=== PATIENT | female | born 1995 | race Caucasian/White ===

== ENCOUNTER 2020-02-24 18:50 | Emergency (ER) | payer OTHER, SELFPAY ==
--- NOTE | 2020-02-24 | ECG_ITS ---
Test Reason : CP Blood Pressure : / mmHG Vent. Rate : 085 BPM Atrial Rate : 085 BPM P-R Int : 172 ms QRS Dur : 080 ms QT Int : 344 ms P-R-T Axes : 041 043 021 degrees QTc Int : 409 ms Normal sinus rhythm Normal ECG No previous ECGs available Referred By: Generic ED Physician Electronically Signed By:KARIN JENKINS MD
[2020-02-24 18:59] VITALS: BP 127/71; PULSE 96; RESP 18; TEMP 36.4; O2SAT 100; BMI 27.8
--- NOTE | 2020-02-24 19:12 | ED_ITS ---
HPI - Chest Pain General Chief Complaint: Chest Pain Stated Complaint: chest pain Time Seen by Provider: 02/24/20 19:02 Source: patient Mode of arrival: ambulatory Limitations: no limitations History of Present Illness HPI narrative: Patient comes in complaining of chest pain on the left side. Patient states she was driving, started feeling anxious and then started having chest pain. Patient states is sharp, nonradiating. Patient feeling anxious. MD complaint: other (Chest pain due to anxiety) Related Data Home Medications Medication Instructions Recorded Confirmed omeprazole 20 mg capsule,delayed 20 mg PO DAILY 01/19/20 02/21/20 release cholecalciferol (vitamin D3) 50 50 mcg PO DAILY 02/21/20 02/21/20 mcg (2,000 unit) capsule clomiphene citrate 50 mg tablet 50 mg PO DAILY 02/21/20 02/21/20 folic acid 400 mcg tablet 0.4 mg PO DAILY 02/21/20 02/21/20 metronidazole 0.75 % vaginal gel 1 appful VAGINAL DAILY 02/21/20 02/21/20 progesterone micronized 100 mg 100 mg PO QAM 02/21/20 02/21/20 capsule progesterone micronized 100 mg 1 insert VAGINAL ONCE ea 02/21/20 02/21/20 vaginal insert Previous Rx's Medication Instructions Recorded mirtazapine 15 mg tablet 15 mg PO BEDTIME 90 Days #90 tab 01/19/20 clobetasol 0.05 % topical cream 1 applic TOPICAL BEDTIME 30 Days 02/21/20 #30 g Allergies Allergy/AdvReac Type Severity Reaction Status Date / Time No Known Allergies Allergy Verified 01/19/20 16:37 Review of Systems Review of Systems: Constitutional : No Weight loss, No Fever, No Chills, No Night Sweats, No Fatigue, No Malaise ENT/Mouth : No Hearing loss, No Ear Pain, No Nasal Congestion, No Sinus Pain, No Hoarseness, No sore throat, No Rhinorrhea, No Swallowing Difficulty Eyes: No Eye Pain, No Swelling, No Redness, No Foreign Body, No Discharge, No Vision Changes Cardiovascular : Complaining of mild chest pain on the left side, no reproducible, No Dyspnea on Exertion, No Orthopnea, No Edema, No Palpitations Respiratory : No Cough, No Sputum, No Wheezing, No Smoke Exposure, No Dyspnea Gastrointestinal : No Nausea, No Vomiting, No Diarrhea, No Constipation, No abdominal Pain, No Hematochezia, No Melena Genitourinary : no irregular bleeding, No Dysuria, No Urinary Frequency, No Hematuria, No Urinary Incontinence, No Urgency, No Flank Pain, No Urinary Flow Changes, No Hesitancy Musculoskeletal : No joint pain, No Myalgias, No Joint Swelling Skin : No Skin Lesions, No rash Neuro : No Weakness, No Numbness, No Paresthesias, No Loss of Consciousness, No Dizziness, No Headache Psych : Complaining of anxiety, No Depression, No SI/HI/AH/VH, No Social Issues, Heme/Lymph: No Bruising, No Bleeding,No Lymphadenopathy Endocrine : No Polyuria, No Polydipsia, No Temperature Intolerance [facility] Past Medical History Medical History Anxiety Depression Difficulty sleeping Dyspepsia Psoriasis Surgical History No pertinent past surgical history Family History Family History Father Bipolar disorder Back problem Mother Asthma Heart problem Maternal Grandfather CVD (cardiovascular disease) Myocardial infarction Paternal Aunt Breast cancer Brother No problems noted. Sister No problems noted. Maternal Aunt Uterine cancer Ovarian cancer Social History Social History Alcohol intake: never Smoking Status: Current some day smoker Tobacco Type: Cigarette Substance Use Type: Marijuana Substance Use Frequency: Daily Last Used Substance: Hours (ago) Any prior treatment program specific to substance use: No Advance Directives: No Advance Directives Information Provided: Yes Physical Exam Vital Signs: Vital Signs: Last Vital Signs Temp 97.6 F 02/24/20 18:59 Pulse 96 02/24/20 18:59 Resp 18 02/24/20 18:59 BP 127/71 02/24/20 18:59 Pulse Ox 100 02/24/20 18:59 Body Mass Index 27.8 Appearance: Alert. Oriented X3. No acute distress. Patient seems anxious Eyes: Pupils equal, round and reactive to light. ENT: Pharynx normal. Neck: Normal inspection. Neck supple. No lymph nodes noted. No crepitus CVS: Normal heart rate and rhythm. Pulses normal. Normal S1 and S2 Respiratory: No respiratory distress. Breath sounds normal. No Wheezing. No rales Abdomen: Soft and nontender. No rigidity. No distention. good BS x4 Skin: Skin warm and dry. Normal skin color. Normal skin turgor. Extremities: No lower extremity edema. No lower extremity edema. No Lacerations. No Rash Neuro: Oriented X 3. No motor deficit. No sensory deficit. Moving all extermities. No slurred speech. Course Course Course Narrative: Patient's white blood cell count is 15.1, unclear where the source of infection is. Patient declined staying for the urine and UA test, a chest x-ray is within normal limits. Troponin 1. Was 5.2, I discussed with the patient that she should be staying for a 2nd troponin. 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 MDM - Chest Pain Lab Data Result diagrams: 02/24/20 19:16 02/24/20 19:16 Labs: Lab Results 02/24/20 02/24/20 02/24/20 Range/Units 19:16 19:16 19:16 WBC 15.1 H (4.8-10.8) X10*3/uL RBC 4.86 (4.20-5.50) X10*6/uL Hgb 15.0 (12.0-16.0) g/dl Hct 43.9 (37-47) % MCV 90.3 (80-98) fL MCH 30.9 (27.0-33.0) pg MCHC 34.2 (31.0-35.0) g/dl RDW 12.3 (11.0-16.0) % Plt Count 215 (160-400) X10*3/uL MPV 11.8 (9.4-12.3) fL Immature Gran % (Auto) 0.3 (0.0-0.4) % Neut % (Auto) 57.5 (45-73) % Lymph % (Auto) 33.5 (20-40) % [place] % (Auto) 6.4 (2-11) % Eos % (Auto) 2.0 (0-4) % Baso % (Auto) 0.3 (0-2) % Lymph # (Auto) 5.0 H (1.2-4.9) X10*3/uL [place] # (Auto) 1.0 (0.1-1.2) X10*3/uL Eos # (Auto) 0.3 (0.0-0.4) X10*3/uL Baso # (Auto) 0.0 (0.0-0.2) X10*3/uL Abs Immat Gran (auto) 0.04 H (0.00-0.03) X10*3/uL Absolute Neuts (auto) 8.7 H (2.0-8.3) X10*3/uL Absolute Nucleated RBC 0.000 (0.0-0.012) X10*3/uL Nucleated RBC % (auto) 0.0 (0.0-0.2) /100WBC Smear Tech's Comments VERIFIED Sodium 140 (135-145) mmol/L Potassium 3.7 (3.3-5.1) mmol/l Chloride 105 (96-108) mmol/L Carbon Dioxide 26 (22-29) mmol/L Anion Gap 13 (12-20) BUN 17 H (9-16) mg/dL Creatinine 0.83 (0.5-1.4) mg/dL Estim Creat Clear Calc 98.9 Estimated GFR > 60 Random Glucose 64 (60-115) mg/dL Calcium 9.7 (8.4-10.2) mg/dL Troponin I High Sens 5.2 (<3.5-17.0) ng/L ECG Data ECG #1: Attestation: I personally reviewed and interpreted this ECG as follows: (Sinus rhythm, heart rate 85, no ST segment depressions or elevations, nonspecific T-wave inversions in lead III) Discharge Plan Discharge Clinical Impression: Chest pain Qualifiers: Chest pain type: unspecified Qualified Code(s): R07.9 - Chest pain, unspecified Patient Disposition: Left Against Medical Advice Instructions: Chest Pain (ED) Additional Instructions: Please follow-up with your primary care physician tomorrow. If you have any worsening or new symptoms, please return to the emergency room or call 911 Prescriptions: No Action clobetasol 0.05 % cream 1 applic topical BEDTIME 30 Days Qty: 30 RF: 3 clomiphene citrate 50 mg tablet 50 mg PO DAILY RF: 0 cholecalciferol (vitamin D3) 50 mcg (2,000 unit) capsule 50 mcg PO DAILY RF: 0 folic acid 400 mcg tablet 0.4 mg PO DAILY RF: 0 progesterone micronized 100 mg insert 1 insert vaginal ONCE RF: 0 metronidazole [Metrogel Vaginal] 0.75 % gel 1 appful vaginal DAILY RF: 0 progesterone micronized [Prometrium] 100 mg capsule 100 mg PO QAM RF: 0 omeprazole 20 mg capsule,delayed release(DR/EC) 20 mg PO DAILY RF: 0 mirtazapine 15 mg tablet 15 mg PO BEDTIME 90 Days Qty: 90 RF: 0
--- NOTE | 2020-02-24 19:20 | XR_ITS ---
EXAMINATION: XR CHEST CLINICAL INFORMATION: Left-sided chest pain. COMPARISON: None TECHNIQUE: Frontal portable view of the chest was obtained. 7:32 PM FINDINGS: No significant abnormality is noted involving the heart, lungs, mediastinum, bony thorax or soft tissues. XR/XR chest 1V IMPRESSION: Unremarkable examination.
[2020-02-24 19:23] LABS: Basophils Percent Auto 0.3 % (0-2); Eosinophils Absolute Auto 0.3 X10*3/uL (0.0-0.4); Hematocrit 43.9 % (37-47); Imm Gran Abs Auto 0.04 X10*3/uL (0.00-0.03); Imm Gran Pct Auto 0.3 % (0.0-0.4); Lymphocytes Percent Auto 33.5 % (20-40); MANUAL DIFF FLAG SCAN; Mean Corpuscular HGB Conc 34.2 g/dl (31.0-35.0); Mean Corpuscular Hemoglobin 30.9 pg (27.0-33.0); Mean Corpuscular Volume 90.3 fL (80-98); Mean Platelet Volume 11.8 fL (9.4-12.3); Monocytes Percent Auto 6.4 % (2-11); Neutrophils Absolute Auto 8.7 X10*3/uL (2.0-8.3); Neutrophils Percent Auto 57.5 % (45-73); Platelet Count 215 X10*3/uL (160-400); Red Blood Count 4.86 X10*6/uL (4.20-5.50); Red Cell Distribution Width 12.3 % (11.0-16.0); SCAN SMEAR FLAG 1; White Blood Count 15.1 X10*3/uL (4.8-10.8)
[2020-02-24] MEDS: Aspirin Enteric Coated 325 MG TABLET.DR PO (19:24)
--- NOTE | 2020-02-24 19:25 | PC.NURSE ---
patient a&ox3, iv inserted, labs drawn, ekg performed, case monitor applied, nsr, medicated per order, will continue to monitor.
--- NOTE | 2020-02-24 19:25 | PC.NURSE ---
pt medicated with 325 asa however med would not scan, will call pharmacy as it was verified with another nurse.
[2020-02-24 19:42] LABS: SLIDE REVIEW VERIFIED
[2020-02-24 19:43] LABS: Anion Gap 13 (12-20); Blood Urea Nitrogen 17 mg/dL (9-16); Calcium 9.7 mg/dL (8.4-10.2); Carbon Dioxide 26 mmol/L (22-29); Chloride 105 mmol/L (96-108); Creatinine Clr Calc Pharmacy 98.9; Estimated Glomerular Filt Rate > 60; Glucose Random 64 mg/dL (60-115); Potassium 3.7 mmol/l (3.3-5.1); Sodium 140 mmol/L (135-145)
[2020-02-24 19:51] LABS: Troponin-I High Sensitivity 5.2 ng/L (<3.5-17.0)
--- NOTE | 2020-02-24 20:37 | PC.NURSE ---
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
--- NOTE | 2020-02-24 20:46 | PC.NURSE ---
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 will notify provider, charge nurse notified and pt will be eloped.
== END 2020-02-24 20:48 | disposition left against medical advice (07) ==
PROVIDERS: Emergency Provider Emergency Medicine; PCP Internal Medicine
DX: R07.9 Chest pain, unspecified (principal); Z79.899 Other long term (current) drug therapy; F17.200 Nicotine dependence, unspecified, uncomplicated; Z71.6 Tobacco abuse counseling
CPT/HCPCS: 36415; 71045; 80048; 84484; 85025; 93005; 99283; 99284

== ENCOUNTER 2020-04-25 14:47 | Outpatient (REF) | payer OTHER, SELFPAY ==
[2020-04-26 13:14] LABS: BV Int Neg Control Negative (Negative); BV Int Pos Control Positive (Positive)
[2020-04-28 10:45] LABS: CT PCR NOT DETECTED (Not Detect.); NG PCR NOT DETECTED (Not Detect.)
== END 2020-04-25 14:48 | disposition home or self-care (01) ==
LOC: HO.LNP 14:47
PROVIDERS: Visit Provider Nurse Practitioner Family
DX: N76.0 Acute vaginitis (principal); Z76.89 Persons encountering health services in other specified circumstances
CPT/HCPCS: 87255; 87480; 87491; 87510; 87591; 87660

== ENCOUNTER 2020-05-23 11:57 | Outpatient (REF) | payer OTHER, SELFPAY ==
[2020-05-23 17:43] LABS: Hematocrit 41.8 % (37-47); Hemoglobin 14.4 g/dl (12.0-16.0); Mean Corpuscular HGB Conc 34.4 g/dl (31.0-35.0); Mean Corpuscular Hemoglobin 30.8 pg (27.0-33.0); Mean Corpuscular Volume 89.5 fL (80-98); Mean Platelet Volume 12.4 fL (9.4-12.3); Platelet Count 232 X10*3/uL (160-400); Red Blood Count 4.67 X10*6/uL (4.20-5.50); Red Cell Distribution Width 11.9 % (11.0-16.0); White Blood Count 11.7 X10*3/uL (4.8-10.8)
[2020-05-23 18:23] LABS: TSH reflex Free T4 0.58 uIU/mL (0.32-4.0)
[2020-05-29 10:42] LABS: Testosterone, Free 8.9 pg/mL (0.1-6.4); Testosterone, Total 64 ng/dL (2-45)
== END 2020-05-23 11:58 | disposition home or self-care (01) ==
LOC: HO.LAB 11:57
PROVIDERS: PCP Internal Medicine; Visit Provider Advanced Practice Midwife
DX: N93.9 Abnormal uterine and vaginal bleeding, unspecified (principal); L68.0 Hirsutism
CPT/HCPCS: 36415; 83498; 84402; 84403; 84443; 85027; Q3014

== ENCOUNTER 2020-06-05 15:21 | Outpatient (REF) | payer OTHER, SELFPAY ==
--- NOTE | ~2020-06-05 | US_ITS ---
EXAMINATION: PELVIC ULTRASOUND CLINICAL INFORMATION: Abnormal uterine bleeding COMPARISON: None TECHNIQUE: Transabdominal and transvaginal pelvic ultrasound was performed. Transvaginal exam was performed for better visualization of the uterus and ovaries. FINDINGS: The uterus is anteverted and measures 8.7 x 4.4 x 5.9 cm in dimension. No focal uterine lesion is seen. Endometrial thickness is normal measuring 1.2 cm. Both ovaries are enlarged. The right ovary measures 5.1 x 2.7 x 3.4 cm, volume 24 mL. Left ovary measures 4 x 3.2 x 2.1 cm, volume 18 mL. There are numerable small peripheral cysts or follicles seen in both ovaries and increased central echogenic stroma. Findings are suggestive of polycystic ovarian syndrome. There is no fluid in the pelvis. US/US transvaginal IMPRESSION: Enlarged ovaries with multiple small peripheral cysts or follicles suggestive of polycystic ovarian syndrome.
--- NOTE | ~2020-06-05 | US_ITS ---
EXAMINATION: PELVIC ULTRASOUND CLINICAL INFORMATION: Abnormal uterine bleeding COMPARISON: None TECHNIQUE: Transabdominal and transvaginal pelvic ultrasound was performed. Transvaginal exam was performed for better visualization of the uterus and ovaries. FINDINGS: The uterus is anteverted and measures 8.7 x 4.4 x 5.9 cm in dimension. No focal uterine lesion is seen. Endometrial thickness is normal measuring 1.2 cm. Both ovaries are enlarged. The right ovary measures 5.1 x 2.7 x 3.4 cm, volume 24 mL. Left ovary measures 4 x 3.2 x 2.1 cm, volume 18 mL. There are numerable small peripheral cysts or follicles seen in both ovaries and increased central echogenic stroma. Findings are suggestive of polycystic ovarian syndrome. There is no fluid in the pelvis. US/US pelvic complete IMPRESSION: Enlarged ovaries with multiple small peripheral cysts or follicles suggestive of polycystic ovarian syndrome.
== END 2020-06-05 15:22 | disposition home or self-care (01) ==
LOC: HO.HMGCX 15:21
PROVIDERS: PCP Internal Medicine; Visit Provider Advanced Practice Midwife
DX: N93.9 Abnormal uterine and vaginal bleeding, unspecified (principal); L68.0 Hirsutism
CPT/HCPCS: 76830; 76856

== ENCOUNTER → 2020-06-07 15:18 | Outpatient (BNVA) | payer OTHER, SELFPAY | PROVIDERS: Visit Provider Advanced Practice Midwife | DX: Z13.89 Encounter for screening for other disorder (principal) | CPT/HCPCS: 99212 ==

== ENCOUNTER → 2020-08-26 11:00 | Outpatient (BNVA) | payer OTHER, SELFPAY | PROVIDERS: Visit Provider Advanced Practice Midwife | DX: E28.2 Polycystic ovarian syndrome (principal) | CPT/HCPCS: Q3014 ==

== ENCOUNTER → 2020-09-23 14:17 | Outpatient (BNVA) | payer OTHER, SELFPAY | PROVIDERS: PCP Internal Medicine; Visit Provider Advanced Practice Midwife | DX: Z30.011 Encounter for initial prescription of contraceptive pills (principal) | CPT/HCPCS: Q3014 ==

== ENCOUNTER 2020-11-23 09:24 | Outpatient (REF) | payer OTHER, MEDICAID, SELFPAY ==
[2020-11-25 03:37] LABS: HBS Num1 2.41 mIU/mL (0-7.99); ~Hepatitis B Surface Antibody NONREACTIVE (Nonreactive)
[2020-11-25 17:26] LABS: Rubella IgG Antibody 1.04 Index; Rubeola IgG (Measles) <13.50 AU/mL
== END 2020-11-23 09:25 | disposition home or self-care (01) ==
LOC: HO.HMGCLDS 09:24
PROVIDERS: PCP Internal Medicine; Visit Provider Internal Medicine
DX: Z01.84 Encounter for antibody response examination (principal)
CPT/HCPCS: 36415; 86706; 86735; 86762; 86765; 86787

== ENCOUNTER 2020-11-27 09:50 | Outpatient (REF) | payer OTHER, SELFPAY ==
[2020-11-27 14:27] LABS: CT PCR NOT DETECTED (Not Detect.); NG PCR NOT DETECTED (Not Detect.)
[2020-11-28 09:27] LABS: BV Int Neg Control Negative (Negative); BV Int Pos Control Positive (Positive)
[2020-11-29 21:02] LABS: TS Negative Control Passed; TS Panel A 0; TS Panel B 0; TS Positive Control Passed; TSpotTB Negative (SeeBelow)
== END 2020-11-27 09:51 | disposition home or self-care (01) ==
LOC: HO.LAB 09:50
PROVIDERS: PCP Internal Medicine; Visit Provider Advanced Practice Midwife
DX: Z01.419 Encounter for gynecological examination (general) (routine) without abnormal findings (principal); R10.2 Pelvic and perineal pain; Z11.1 Encounter for screening for respiratory tuberculosis; Z20.2 Contact with and (suspected) exposure to infections with a predominantly sexual mode of transmission
CPT/HCPCS: 36415; 86481; 87480; 87491; 87510; 87591; 87660; 88142

== ENCOUNTER → 2021-02-28 11:47 | Outpatient (BNVA) | payer OTHER, SELFPAY | PROVIDERS: PCP Internal Medicine; Visit Provider Advanced Practice Midwife ==

== ENCOUNTER 2021-05-10 09:03 | Outpatient (REF) | payer OTHER, SELFPAY ==
[2021-05-10 11:31] LABS: Alanine Aminotransferase 17 U/L (0-31); Albumin Level 4.5 g/dL (3.5-5.0); Alkaline Phosphatase 68 U/L (39-117); Anion Gap 11 (12-20); Aspartate Amino Transferase 16 U/L (5-31); Bilirubin Total 1.4 mg/dL (0.0-1.0); Blood Urea Nitrogen 14 mg/dL (9-16); Calcium 9.8 mg/dL (8.4-10.2); Carbon Dioxide 27 mmol/L (22-29); Chloride 105 mmol/L (96-108); Cholesterol 189 mg/dL; Estimated Glomerular Filt Rate > 60; Glucose Fasting 87 mg/dL (60-99); HDL Cholesterol 38 mg/dL; LDL Cholesterol Calculated 135 mg/dl; Potassium 4.2 mmol/L (3.3-5.1); Sodium 139 mmol/L (135-145); Total Protein 7.4 g/dL (6.5-8.0); Triglycerides 82 mg/dL
[2021-05-10 11:53] LABS: TSH reflex Free T4 0.41 uIU/mL (0.32-4.0)
== END 2021-05-10 09:04 | disposition home or self-care (01) ==
LOC: HO.HMGCLDS 09:03
PROVIDERS: PCP Internal Medicine; Visit Provider Internal Medicine
DX: Z00.01 Encounter for general adult medical examination with abnormal findings (principal); R10.13 Epigastric pain; G47.9 Sleep disorder, unspecified; F41.1 Generalized anxiety disorder
CPT/HCPCS: 36415; 80053; 80061; 84443

== ENCOUNTER 2021-10-04 14:56 | Outpatient (REF) | payer OTHER, SELFPAY ==
[2021-10-04 16:13] LABS: Appearance Urine CLEAR; Color Urine YELLOW; Glucose Urine UA NEG (NEG); Leukocyte Esterase Urine NEG (NEG); Nitrite Urine NEG (NEG); Specific Gravity - Urine >= 1.030 (1.005-1.025); Urine Blood NEG (NEG); Urine Ketones NEG (NEG); Urine Protein TRACE MG/DL (NEG-TRACE)
[2021-10-06 04:57] LABS: HIV AB/AG Nonreactive (Nonreactive); HIV Num 1 0.08 S/CO (0.00-0.99); ~Hepatitis C Antibody Nonreactive (Nonreactive)
[2021-10-14 18:22] LABS: HSV 1 IgM IFA Negative (Negative); HSV 2 IgM IFA Negative (Negative)
== END 2021-10-04 14:57 | disposition home or self-care (01) ==
LOC: HO.HMGCLDS 14:56
PROVIDERS: PCP Internal Medicine; Visit Provider Physician Assistant Medical
DX: Z11.4 Encounter for screening for human immunodeficiency virus [HIV] (principal); Z11.3 Encounter for screening for infections with a predominantly sexual mode of transmission; R30.0 Dysuria
CPT/HCPCS: 36415; 81003; 86695; 86696; 86803; 87389

== ENCOUNTER 2021-10-24 11:19 | Outpatient (REF) | payer OTHER, SELFPAY ==
--- NOTE | ~2021-10-24 | US_ITS ---
EXAMINATION: OBSTETRICAL ULTRASOUND, FIRST TRIMESTER HISTORY: 26-year-old at 7.0 weeks of gestation Viability LMP: 09/05/2021 COMPARISON: None in this TECHNIQUE: Real time transabdominal imaging with color and M-mode Doppler. FINDINGS: A single, live IUP CRL of 7.0 mm c/w 6.5wks is noted. Heart Rate: 135 beats per minute. Both maternal ovaries are seen and appear normal. GESTATIONAL AGE: 1. GA from LMP: 7.0 wks 2. GA from AUA: 6.5 wks ESTIMATED DATE OF DELIVERY: 1. ORALIA from LMP: 06/12/2022 2. ORALIA from AUA: 06/14/2022 US/US OB <= 14 weeks fetus IMPRESSION: 1. A single live IUP 2. Size equals dates 3. Normal ovaries Thank you very much for this referral. This note was generated with a voice recognition program. Please excuse any errors which may have been overlooked during my review of this note. Sometimes these errors may affect the content or meaning of a given sentence.
== END 2021-10-24 11:20 | disposition home or self-care (01) ==
LOC: HO.US 11:19
PROVIDERS: Visit Provider Advanced Practice Midwife
DX: O99.281 Endocrine, nutritional and metabolic diseases complicating pregnancy, first trimester (principal); E28.2 Polycystic ovarian syndrome; Z3A.01 Less than 8 weeks gestation of pregnancy
CPT/HCPCS: 76801; 86850; 86900

== ENCOUNTER 2021-10-24 13:55 | Outpatient (REF) | payer OTHER, SELFPAY ==
[2021-10-25 04:32] LABS: CT PCR NOT DETECTED (Not Detect.); NG PCR NOT DETECTED (Not Detect.)
[2021-10-25 11:27] LABS: BV Int Neg Control Negative (Negative); BV Int Pos Control Positive (Positive)
== END 2021-10-24 13:56 | disposition home or self-care (01) ==
LOC: HO.LAB 13:55
PROVIDERS: Visit Provider Obstetrics & Gynecology
DX: O99.281 Endocrine, nutritional and metabolic diseases complicating pregnancy, first trimester (principal); E28.2 Polycystic ovarian syndrome
CPT/HCPCS: 87480; 87491; 87510; 87591; 87660

== ENCOUNTER 2021-10-30 17:17 | Emergency (ER) | payer OTHER, SELFPAY ==
[2021-10-30 17:53] VITALS: BP 129/85; PULSE 74; RESP 18; TEMP 36.9; O2SAT 99; BMI 26.0
[2021-10-30 18:12] LABS: Hematocrit 37.4 % (37.0-47.0); Hemoglobin 13.3 g/dl (12.0-16.0); Mean Corpuscular HGB Conc 35.6 g/dl (31.0-35.0); Mean Corpuscular Hemoglobin 30.5 pg (27.0-33.0); Mean Corpuscular Volume 85.8 fL (80.0-98.0); Mean Platelet Volume 11.4 fL (9.4-12.3); Platelet Count 243 X10*3/uL (160-400); Red Blood Count 4.36 X10*6/uL (4.20-5.50); White Blood Count 13.9 X10*3/uL (4.8-10.8)
[2021-10-30 18:25] LABS: Anion Gap 14 (12-20); Blood Urea Nitrogen 6 mg/dL (9-16); Calcium 8.7 mg/dL (8.4-10.2); Carbon Dioxide 20 mmol/L (22-29); Chloride 105 mmol/L (96-108); Estimated Glomerular Filt Rate > 60; Glucose Random 90 mg/dL (60-115); Lipase 31 U/L (8-78); Potassium 3.7 mmol/L (3.3-5.1); Sodium 135 mmol/L (135-145)
--- NOTE | 2021-10-30 22:44 | ED.GENADULT ---
HPI - General Adult General Chief complaint: Abdominal Pain Stated complaint: Edc 06/14 deydration,vomiting Time Seen by Provider: 10/30/21 22:36 Source: patient Mode of arrival: ambulatory History of Present Illness HPI narrative: 26-year-old female who presents gravid and on review of recent ultrasound that demonstrated IUP at approximate 7.4 weeks as of today. Patient reports that she has been having 2 months of poor p.o. intake and nausea and vomiting and states today is been worsened usual and she has been unable to tolerate water. Patient reports that she has also suffered from anxiety and depression previously and states that her medication has been stopped. Patient reports that she has been on bupropion 150 mg daily, buspirone 10 mg b.i.d., mirtazapine 15 mg at bedtime. Patient states that she ?does not feel herself?, has a headache. On review of documentation from 10/24 during her visit at the clinic patient denied any nausea, vomiting, fever, chills. Related Data Previous Rx's Medication Instructions Recorded vitamin with calcium 1 tab PO DAILY #30 tabs 10/15/21 no.72-iron 27 mg-folic acid 1 mg tablet ( Vitamins Plus Low Iron) metronidazole 0.75 % vaginal gel 1 appful vaginal BEDTIME 5 days 10/25/21 #37.5 grams doxylamine succinate 25 mg tablet 12.5 mg PO .q 6-8 H PRN nausea #30 10/26/21 tabs pyridoxine (vitamin B6) 25 mg 25 mg PO tid PRN nausea 30 days 10/26/21 tablet (Vitamin B-6) #90 tabs ondansetron 4 mg disintegrating 4 mg PO Q8H PRN nausea and 10/31/21 tablet vomiting #7 tabs Allergies Allergy/AdvReac Type Severity Reaction Status Date / Time No Known Allergies Allergy Verified 10/24/21 13:39 Review of Systems Review of Systems: Pertinent positives and negatives as stated in HPI 10 point review of systems is otherwise negative. PMFSH Past Medical History Source: nursing notes reviewed Medical History Anxiety Depression Difficulty sleeping Dyspepsia PCOS (polycystic ovarian syndrome) Psoriasis Surgical History No pertinent past surgical history Family History Family History Father Bipolar disorder Back problem Mother Asthma Heart problem Maternal Grandfather CVD (cardiovascular disease) Myocardial infarction Paternal Aunt Breast cancer Brother No problems noted. Sister No problems noted. Maternal Aunt Uterine cancer Ovarian cancer Other Mental health disorder Substance use disorder Social History Social History Housing: House Alcohol intake: never Patient Tobacco Use Status: Former Tobacco user Tobacco use type: Cigarette e-Cigarette/Vaping Use: Never Used Substance Use Type: Marijuana Advance Directives: No service: No Current occupational status: employed Cognitive needs: No Hearing needs: No Vision needs: No Physical Exam ED Vital Signs: Vital Signs - 24 hr 10/30/21 17:53 10/30/21 22:47 Temperature 98.5 F 98.7 F Pulse Rate 74 82 Respiratory Rate 18 15 Blood Pressure 129/85 132/74 Pulse Oximetry 99 100 Oxygen Delivery Method Room Air Room Air BMI result Body Mass Index 26.0 VITAL SIGNS: Reviewed. GENERAL: Well developed, well nourished, in no acute distress. HEAD: Normocephalic/atraumatic EYES: PERRLA, EOMI EARS: Ext canals without abnormality OROPHARYNX: no oral lesions noted, posterior pharynx clear LUNGS: Normal breath sounds. No adventitious sounds or accessory muscle use. SpO2<99> CARDIOVASCULAR: Regular rate and rhythm without noted murmurs ABDOMEN: Soft, non-tender, non-distended with bowel sounds. MUSCULOSKELETAL: No tenderness, deformities, or effusions noted on gross inspection. EXTREMITIES: No cyanosis, clubbing or edema. SKIN: Inspection of the skin reveals no rashes NEUROLOGIC: Alert and oriented x 4. Strength and sensation to light touch were grossly intact x 4. PSYCH: Mildly depressed affect, mild anxiety Course Course Course Narrative: 26-year-old female with history and clinical presentation consistent with hyper emesis , will rule out UTI and also suspect a component of anxiety and depression that is not controlled at this time because patient has been taken off of her scheduled medications. On further investigation it appears buspirone and mirtazapine should be okay during , but this will be verified through Dr. Goel, and will ask him about bupropion. Doctors every agrees and states that it really is a risk and benefit discussion, I discussed this further with the patient and provided her with the information that mirtazapine and buspirone have been shown to be safe in and I a clearly informed her that the bupropion has shown to cause heart defects. I strongly encouraged her to follow-up with primary care provider to discuss further as this will help her. She is otherwise discharged home in stable condition tolerating oral intake. Medical Decision Making Lab Data Result diagrams: 10/30/21 18:00 10/30/21 18:00 Labs: Lab Results 10/30/21 10/30/21 10/30/21 Range/Units 18:00 18:00 23:19 WBC 13.9 H (4.8-10.8) X10*3/uL RBC 4.36 (4.20-5.50) X10*6/uL Hgb 13.3 (12.0-16.0) g/dl Hct 37.4 (37.0-47.0) % MCV 85.8 (80.0-98.0) fL MCH 30.5 (27.0-33.0) pg MCHC 35.6 H (31.0-35.0) g/dl RDW 12.0 (11.0-16.0) % Plt Count 243 (160-400) X10*3/uL MPV 11.4 (9.4-12.3) fL Absolute Nucleated RBC 0.000 (0.0-0.012) X10*3/uL Nucleated RBC % (auto) 0.0 (0.0-0.2) /100WBC Sodium 135 (135-145) mmol/L Potassium 3.7 (3.3-5.1) mmol/L Chloride 105 (96-108) mmol/L Carbon Dioxide 20 L (22-29) mmol/L Anion Gap 14 (12-20) BUN 6 L D (9-16) mg/dL Creatinine 0.68 (0.5-1.4) mg/dL Estim Creat Clear Calc 115.0 Estimated GFR > 60 Random Glucose 90 (60-115) mg/dL Calcium 8.7 D (8.4-10.2) mg/dL Total Bilirubin 1.2 H (0.0-1.0) mg/dL Direct Bilirubin 0.4 (0.0-0.5) mg/dL AST 15 (5-31) U/L ALT 15 (0-31) U/L Alkaline Phosphatase 58 (39-117) U/L Total Protein 6.9 (6.5-8.0) g/dL Albumin 4.3 (3.5-5.0) g/dL Lipase 31 (8-78) U/L Beta HCG, Quant 431582 mIU/mL Urine Color Urine Appearance Urine pH (5.0-8.0) Ur Specific [place] (1.005-1.025) Urine Protein (NEG-TRACE) MG/DL Urine Glucose (UA) (NEG) MG/DL Urine Ketones (NEG) MG/DL Urine Blood (NEG) Urine Nitrite (NEG) Ur Leukocyte Esterase (NEG) COVID-19 ([facility]) Negative (Negative) COVID-19 Clin Com See Note 10/31/21 Range/Units 00:14 WBC (4.8-10.8) X10*3/uL RBC (4.20-5.50) X10*6/uL Hgb (12.0-16.0) g/dl Hct (37.0-47.0) % MCV (80.0-98.0) fL MCH (27.0-33.0) pg MCHC (31.0-35.0) g/dl RDW (11.0-16.0) % Plt Count (160-400) X10*3/uL MPV (9.4-12.3) fL Absolute Nucleated RBC (0.0-0.012) X10*3/uL Nucleated RBC % (auto) (0.0-0.2) /100WBC Sodium (135-145) mmol/L Potassium (3.3-5.1) mmol/L Chloride (96-108) mmol/L Carbon Dioxide (22-29) mmol/L Anion Gap (12-20) BUN (9-16) mg/dL Creatinine (0.5-1.4) mg/dL Estim Creat Clear Calc Estimated GFR Random Glucose (60-115) mg/dL Calcium (8.4-10.2) mg/dL Total Bilirubin (0.0-1.0) mg/dL Direct Bilirubin (0.0-0.5) mg/dL AST (5-31) U/L ALT (0-31) U/L Alkaline Phosphatase (39-117) U/L Total Protein (6.5-8.0) g/dL Albumin (3.5-5.0) g/dL Lipase (8-78) U/L Beta HCG, Quant mIU/mL Urine Color YELLOW Urine Appearance HAZY Urine pH 6.5 (5.0-8.0) Ur Specific [place] <= 1.005 (1.005-1.025) Urine Protein NEG (NEG-TRACE) MG/DL Urine Glucose (UA) NEG (NEG) MG/DL Urine Ketones 5 (NEG) MG/DL Urine Blood NEG (NEG) Urine Nitrite NEG (NEG) Ur Leukocyte Esterase NEG (NEG) COVID-19 ([facility]) (Negative) COVID-19 Clin Com Discharge Plan Discharge Clinical Impression: Nausea and vomiting during , Depression, Anxiety, Dehydration Patient Disposition: Home, Self-Care Instructions: (ED), Dehydration (ED), Depression (ED), Anxiety (ED) Additional Instructions: 1. Recommend that you continue to take the vitamin B6 and if you develop nausea and vomiting despite this then use this Zofran (ondansetron). 2. You have been given a list medications that are safe during . 3. Buspirone and Mirtazapine have both been shown to be safe in , BUT Bupropion has been known to cause heart defects. That being said we discussed that it is important that you remain mentally healthy throughout your as well. Please arrange for a f/u appt with your PCP to discuss options for your bipolar/depression. Do not hesitate to return to the ER if you feel overwhelmed or experience recurrence of symptoms. Prescriptions: New ondansetron 4 mg tablet,disintegrating 4 mg PO Q8H PRN (Reason: nausea and vomiting) Qty: 7 0RF Rx Instructions: Only take if VitB6 is not working No Action metronidazole 0.75 % gel 1 appful vaginal BEDTIME 5 Days Qty: 37.5 0RF pyridoxine (vitamin B6) [Vitamin B-6] 25 mg tablet 25 mg PO tid PRN (Reason: nausea) 30 Days Qty: 90 3RF Rx Instructions: may take every 6 - 8 hours for nausea doxylamine succinate 25 mg tablet 12.5 mg PO .q 6-8 H PRN (Reason: nausea) Qty: 30 0RF Vitamin Plus Low Iron 27 mg iron- 1 mg tablet 1 tab PO DAILY Qty: 30 11RF Referrals: Kenny Shin MD [Primary Care Provider] - Dieudonne Goel MD [Physician] - Stand Alone Forms: Work/School Release
[2021-10-30 22:47] VITALS: BP 132/74; PULSE 82; RESP 15; TEMP 37.1; O2SAT 100
[2021-10-30] MEDS: 0.9 % Sodium Chloride 1,000 ML 999 ML IV (22:48)
[2021-10-30 23:00] LABS: Alanine Aminotransferase 15 U/L (0-31); Albumin Level 4.3 g/dL (3.5-5.0); Alkaline Phosphatase 58 U/L (39-117); Aspartate Amino Transferase 15 U/L (5-31); Bilirubin Direct 0.4 mg/dL (0.0-0.5); Bilirubin Total 1.2 mg/dL (0.0-1.0); Total Protein 6.9 g/dL (6.5-8.0)
[2021-10-30] MEDS: ondansetron HCL 4 MG/2 ML VIAL IVPUSH (23:44)
[2021-10-30 23:46] LABS: COVID-19 Test Negative (Negative)
[2021-10-31 00:18] LABS: Appearance Urine HAZY; Color Urine YELLOW; Glucose Urine UA NEG (NEG); Leukocyte Esterase Urine NEG (NEG); Nitrite Urine NEG (NEG); PH 6.5 (5.0-8.0); Specific Gravity - Urine <= 1.005 (1.005-1.025); Urine Blood NEG (NEG); Urine Ketones 5 MG/DL (NEG); Urine Protein NEG (NEG-TRACE)
--- NOTE | 2021-10-31 00:42 | P.CONOB_ITS ---
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 Patient's PCP stopped her anxiety and depression medication was on bupropion/Buspirone/mirtazapine. No abdominal pain, vaginal bleeding, I was consulted about the risk of using bupropion in . cc:: CC: OB [facility] Past Medical History Medical History Anxiety Depression Difficulty sleeping Dyspepsia PCOS (polycystic ovarian syndrome) Psoriasis Family History Family History Father Bipolar disorder Back problem Mother Asthma Heart problem Maternal Grandfather CVD (cardiovascular disease) Myocardial infarction Paternal Aunt Breast cancer Brother No problems noted. Sister No problems noted. Maternal Aunt Uterine cancer Ovarian cancer Other Mental health disorder Substance use disorder Surgical History Surgical History No pertinent past surgical history Social History Social History Household Members: Significant Other Both parents involved: Yes Caregiver staying overnight: No Housing: House Are you a primary home care aide to a significant other at home: No Do you presently have visiting nurse or other home services: No 75 years or older and lives alone: No Alcohol intake: never Patient Tobacco Use Status: Never used Tobacco e-Cigarette/Vaping Use: Never Used Substance Use Type: Marijuana Trauma History: denies Agree to transfusion: Yes service: No Current occupational status: employed 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 Current occupational exposures/hazards: No Cognitive needs: No Hearing needs: No Vision needs: No Meds Allergies Allergy/AdvReac Type Severity Reaction Status Date / Time No Known Allergies Allergy Verified 12/02/21 08:02 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 Physical Exam Vitals Vital signs: Temp Pulse Resp BP Pulse Ox O2 Del Method 98.7 F 82 15 132/74 100 10/30/21 22:47 10/30/21 22:47 10/30/21 22:47 10/30/21 22:47 10/30/21 22:47 10/30/21 22:47 BMI result Body Mass Index 26.0 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 SUPERVISOR - Results Labs CBC & Chem 7: 10/30/21 18:00 10/30/21 18:00 Labs: Short CBC 10/30/21 Range/Units 18:00 WBC 13.9 H (4.8-10.8) X10*3/uL Hgb 13.3 (12.0-16.0) g/dl Hct 37.4 (37.0-47.0) % Plt Count 243 (160-400) X10*3/uL BMP 10/30/21 18:00 Sodium 135 Potassium 3.7 Chloride 105 Carbon Dioxide 20 L BUN 6 L D Creatinine 0.68 Calcium 8.7 D Liver Function 10/30/21 Range/Units 18:00 Total Bilirubin 1.2 H (0.0-1.0) mg/dL Direct Bilirubin 0.4 (0.0-0.5) mg/dL AST 15 (5-31) U/L ALT 15 (0-31) U/L Alkaline Phosphatase 58 (39-117) U/L Albumin 4.3 (3.5-5.0) g/dL Urine 10/31/21 Range/Units 00:14 Urine Color YELLOW Urine Appearance HAZY Urine pH 6.5 (5.0-8.0) Ur Specific [place] <= 1.005 (1.005-1.025) Urine Protein NEG (NEG-TRACE) MG/DL Urine Glucose (UA) NEG (NEG) MG/DL Assessment and Plan (1) : Status: Acute Plan Discussed the following with Dr. Cerrato: Risk of bupropion use in 1st trimester includes risk of possible congenital cardiac anomalies, but it is recommended to weigh the benefits versus the risks of its use in , I recommended to counseling psychologist the patient regarding the possible risks of its use in and if there is an indication to start the patient back on the medication , and the patient is agreeable with the potential risks, there is no reason to discontinue the medication in s april the benefits outweigh the risks. I spent a total of 20 minutes reviewing the chart, documenting in the medical record and communicating with the emergency provider
== END 2021-10-31 01:07 | disposition home or self-care (01) ==
PROVIDERS: Emergency Provider Student in an Organized Health Care Education/Training Program; PCP Internal Medicine
DX: O26.91 Pregnancy related conditions, unspecified, first trimester (principal); E86.0 Dehydration; F33.1 Major depressive disorder, recurrent, moderate; Z3A.01 Less than 8 weeks gestation of pregnancy; Z20.822 Contact with and (suspected) exposure to COVID-19; Z79.899 Other long term (current) drug therapy
CPT/HCPCS: 36415; 80048; 80076; 81003; 83690; 84702; 85027; 87635; 96361; 96374; 99284; J2405

== ENCOUNTER 2021-11-05 08:30 | Outpatient (REF) | payer OTHER, SELFPAY ==
[2021-11-05 09:45] LABS: Hematocrit 39.1 % (37.0-47.0); Hemoglobin 13.6 g/dl (12.0-16.0); Mean Corpuscular HGB Conc 34.8 g/dl (31.0-35.0); Mean Corpuscular Volume 86.3 fL (80.0-98.0); Mean Platelet Volume 11.9 fL (9.4-12.3); Platelet Count 252 X10*3/uL (160-400); Red Blood Count 4.53 X10*6/uL (4.20-5.50); Red Cell Distribution Width 12.2 % (11.0-16.0); White Blood Count 9.7 X10*3/uL (4.8-10.8)
[2021-11-05 10:24] LABS: Alanine Aminotransferase 11 U/L (0-31); Albumin Level 4.3 g/dL (3.5-5.0); Alkaline Phosphatase 57 U/L (39-117); Anion Gap 12 (12-20); Aspartate Amino Transferase 12 U/L (5-31); Bilirubin Direct 0.7 mg/dL (0.0-0.5); Bilirubin Total 2.2 mg/dL (0.0-1.0); Carbon Dioxide 21 mmol/L (22-29); Chloride 104 mmol/L (96-108); Estimated Glomerular Filt Rate > 60; Potassium 3.9 mmol/L (3.3-5.1); Sodium 133 mmol/L (135-145)
[2021-11-05 10:46] LABS: TSH reflex Free T4 (Prenatal) 0.16 uIU/mL (0.32-4.0)
[2021-11-05 11:31] LABS: Free T4 (Free Thyroxine) 1.38 ng/dL (0.71-1.85)
[2021-11-07 13:26] LABS: Triiodothyronine T3 Free 3.9 pg/mL (2.3-4.2)
== END 2021-11-05 08:31 | disposition home or self-care (01) ==
LOC: HO.LAB 08:30
PROVIDERS: PCP Internal Medicine; Visit Provider Obstetrics & Gynecology
DX: O26.899 Other specified pregnancy related conditions, unspecified trimester (principal); R11.2 Nausea with vomiting, unspecified; Z3A.00 Weeks of gestation of pregnancy not specified
CPT/HCPCS: 36415; 80051; 80076; 82565; 84439; 84481; 85027

== ENCOUNTER 2021-11-06 15:23 | Outpatient (REF) | payer OTHER, SELFPAY ==
[2021-11-06 17:09] LABS: TSH reflex Free T4 (Prenatal) 0.18 uIU/mL (0.32-4.0)
[2021-11-06 18:00] LABS: Free T4 (Free Thyroxine) 1.33 ng/dL (0.71-1.85)
[2021-11-06 18:30] LABS: Amphetamine Screen Urine Not Detected (Not Detect); Barbiturates, Urine Not Detected (Not Detect); Benzodiazepines Screen Urine Not Detected (Not Detect); Cannabinoid Screen Urine POSITIVE (Not Detect); Cocaine Screen Urine Not Detected (Not Detect); Fentanyl, urine Not Detected (Not Detect); Opiate Screen Urine Not Detected (Not Detect); Phencyclidine Screen Urine Not Detected (Not Detect)
[2021-11-07 08:12] LABS: HIV AB/AG Nonreactive (Nonreactive); HIV Num 1 0.08 S/CO (0.00-0.99); Hepatitis B Surface Antigen Negative (Negative); ~HepC Num1 0.07 S/CO (0.00-0.79); ~Hepatitis C Antibody Nonreactive (Nonreactive)
[2021-11-07 09:24] LABS: Syphilis Screen Nonreactive (Nonreactive)
[2021-11-08 18:11] LABS: Rubella IgG Antibody 3.64 Index
== END 2021-11-06 15:24 | disposition home or self-care (01) ==
LOC: HO.LAB 15:23
PROVIDERS: PCP Internal Medicine; Visit Provider Obstetrics & Gynecology
DX: O21.9 Vomiting of pregnancy, unspecified (principal)
CPT/HCPCS: 80307; 84439; 84481; 86762; 86780; 86787; 86803; 87086; 87340; 87389

== ENCOUNTER 2021-11-07 10:20 | Outpatient (REF) | payer OTHER, SELFPAY ==
--- NOTE | ~2021-11-07 | US_ITS ---
EXAMINATION: OBSTETRICAL ULTRASOUND, FIRST TRIMESTER HISTORY: 26-year-old at 9.0 weeks of gestation Vaginal spotting in early Follow-up viability LMP: 09/05/2021 COMPARISON: 10/24/2021 TECHNIQUE: Real time transabdominal imaging with color and M-mode Doppler. FINDINGS: A single, live IUP CRL of 25.6 mm c/w 9.3wks is noted. Heart Rate: 176 beats per minute. Both maternal ovaries are seen and appear normal. GESTATIONAL AGE: 1. GA from LMP: 9.0 wks 2. GA from AUA: 9.3 wks ESTIMATED DATE OF DELIVERY: 1. ORALIA from LMP: 06/12/2022 2. ORALIA from AUA: 06/09/2022 US/US OB <= 14 weeks fetus IMPRESSION: 1. A single live IUP 2. Size equals dates 3. Normal ovaries Thank you very much for this referral.
== END 2021-11-07 10:21 | disposition home or self-care (01) ==
LOC: HO.US 10:20
PROVIDERS: PCP Internal Medicine; Visit Provider Obstetrics & Gynecology
DX: O20.9 Hemorrhage in early pregnancy, unspecified (principal); Z71.2 Person consulting for explanation of examination or test findings
CPT/HCPCS: 76801; 99212

== ENCOUNTER 2021-11-11 10:46 | Outpatient (REF) | payer OTHER, SELFPAY | END 2021-11-11 10:47 | disposition home or self-care (01) | LOC: HO.LAB 10:46 | PROVIDERS: Visit Provider Advanced Practice Midwife | DX: Z34.91 Encounter for supervision of normal pregnancy, unspecified, first trimester (principal); Z3A.10 10 weeks gestation of pregnancy | CPT/HCPCS: 87255; 99212 ==

== ENCOUNTER 2021-11-18 13:50 | Outpatient (REF) | payer OTHER, SELFPAY ==
--- NOTE | ~2021-11-18 | US_ITS ---
EXAMINATION: US OBSTETRICAL ULTRASOUND CLINICAL INFORMATION: Positive test COMPARISON: Previous exam most recent 11/07/2021. LMP: 09/05/2021. Gestational age by maternal dates is 10 weeks 4 days. Estimated date of delivery by maternal dates is 06/12/2022. TECHNIQUE: Transabdominal first trimester OB ultrasound FINDINGS: There is an intrauterine gestational sac. [place]-rump length measures 3.8 cm suggesting gestational age of 10 weeks 5 days with estimated date of delivery of 06/11/2022. heart rate is 172 bpm. There is a yolk sac. The maternal ovaries are normal. There is no fluid in the pelvis. US/US OB <= 14 weeks fetus IMPRESSION: 1. Single intrauterine gestation with ultrasound gestational age of 10 weeks 5 days +/- 4 days. 2. Estimated date of delivery is 06/11/2022 +/- 4 days. 3. No maternal adnexal mass or pelvic ascites.
== END 2021-11-18 13:51 | disposition home or self-care (01) ==
LOC: HO.US 13:50
PROVIDERS: PCP Internal Medicine; Visit Provider Obstetrics & Gynecology
DX: O20.9 Hemorrhage in early pregnancy, unspecified (principal)
CPT/HCPCS: 76801; 99212

== ENCOUNTER → 2021-12-02 07:52 | Outpatient (BNVA) | payer OTHER, SELFPAY | PROVIDERS: PCP Internal Medicine; Visit Provider Advanced Practice Midwife | DX: Z34.91 Encounter for supervision of normal pregnancy, unspecified, first trimester (principal); Z3A.13 13 weeks gestation of pregnancy | CPT/HCPCS: 99212 ==

== ENCOUNTER 2021-12-30 07:44 | Outpatient (REF) | payer OTHER, SELFPAY ==
[2021-12-30 18:08] LABS: CT PCR NOT DETECTED (Not Detect.); NG PCR NOT DETECTED (Not Detect.)
[2021-12-31 15:52] LABS: BV Int Neg Control Negative (Negative); BV Int Pos Control Positive (Positive)
== END 2021-12-30 07:45 | disposition home or self-care (01) ==
LOC: HO.LAB 07:44
PROVIDERS: Advanced Practice Midwife; PCP Internal Medicine; Visit Provider Internal Medicine
DX: O26.892 Other specified pregnancy related conditions, second trimester (principal); N89.8 Other specified noninflammatory disorders of vagina; R79.89 Other specified abnormal findings of blood chemistry; Z3A.17 17 weeks gestation of pregnancy
CPT/HCPCS: 36415; 81003; 84443; 87480; 87491; 87510; 87591; 87660; 99212

== ENCOUNTER 2021-12-30 08:30 | Outpatient (REF) | payer OTHER, SELFPAY | END 2021-12-30 08:31 | disposition home or self-care (01) | LOC: HO.LNP 08:30 | PROVIDERS: Visit Provider Advanced Practice Midwife | DX: Z13.89 Encounter for screening for other disorder (principal) ==

== ENCOUNTER → 2022-01-29 07:48 | Outpatient (BNVA) | payer OTHER, SELFPAY | PROVIDERS: PCP Internal Medicine; Visit Provider Obstetrics & Gynecology | DX: Z34.02 Encounter for supervision of normal first pregnancy, second trimester (principal); Z3A.21 21 weeks gestation of pregnancy | CPT/HCPCS: 99212 ==

== ENCOUNTER 2022-02-25 07:53 | Outpatient (REF) | payer OTHER, SELFPAY ==
[2022-02-25 10:46] LABS: Amphetamine Screen Urine Not Detected (Not Detect); Barbiturates, Urine Not Detected (Not Detect); Benzodiazepines Screen Urine Not Detected (Not Detect); Cannabinoid Screen Urine Not Detected (Not Detect); Cocaine Screen Urine Not Detected (Not Detect); Fentanyl, urine Not Detected (Not Detect); Opiate Screen Urine Not Detected (Not Detect); Phencyclidine Screen Urine Not Detected (Not Detect)
[2022-02-25 11:01] LABS: Hematocrit 35.2 % (37.0-47.0); Hemoglobin 11.9 g/dl (12.0-16.0); Mean Corpuscular HGB Conc 33.8 g/dl (31.0-35.0); Mean Corpuscular Volume 91.7 fL (80.0-98.0); Mean Platelet Volume 12.7 fL (9.4-12.3); Red Blood Count 3.84 X10*6/uL (4.20-5.50); Red Cell Distribution Width 12.4 % (11.0-16.0); White Blood Count 11.2 X10*3/uL (4.8-10.8)
[2022-02-25 11:17] LABS: Glucose 1 Hour PP 50gm Dose 79 mg/dL (60-140)
[2022-02-25 11:30] LABS: Platelet Count 149 X10*3/uL (160-400)
[2022-02-25 12:03] LABS: Syphilis Screen Nonreactive (Nonreactive)
[2022-02-25 12:19] LABS: Alanine Aminotransferase 39 U/L (0-31); Aspartate Amino Transferase 25 U/L (5-31)
[2022-02-25 12:21] LABS: Creatinine Urine 24.33 mg/dL; Total Protein Urine Random < 7 mg/dL (<12)
== END 2022-02-25 07:54 | disposition home or self-care (01) ==
LOC: HO.LAB 07:53
PROVIDERS: PCP Internal Medicine; Visit Provider Obstetrics & Gynecology
DX: O23.42 Unspecified infection of urinary tract in pregnancy, second trimester (principal); O99.282 Endocrine, nutritional and metabolic diseases complicating pregnancy, second trimester; E28.2 Polycystic ovarian syndrome; Z3A.25 25 weeks gestation of pregnancy
CPT/HCPCS: 80307; 81003; 82950; 84156; 84450; 84460; 85027; 86780; 87086; 99212

== ENCOUNTER 2022-02-27 10:13 | Outpatient (REF) | payer OTHER, SELFPAY | END 2022-02-27 10:14 | disposition home or self-care (01) | LOC: HO.LAB 10:13 | PROVIDERS: PCP Internal Medicine; Visit Provider Obstetrics & Gynecology | DX: Z32.01 Encounter for pregnancy test, result positive (principal) | CPT/HCPCS: 86850; 86900; 99212 ==

== ENCOUNTER 2022-03-04 07:35 | Outpatient (REF) | payer OTHER, SELFPAY ==
[2022-03-04 08:31] LABS: Hematocrit 35.2 % (37.0-47.0); Hemoglobin 11.6 g/dl (12.0-16.0); Mean Corpuscular Hemoglobin 30.6 pg (27.0-33.0); Mean Corpuscular Volume 92.9 fL (80.0-98.0); Platelet Count 138 X10*3/uL (160-400); Red Blood Count 3.79 X10*6/uL (4.20-5.50); Red Cell Distribution Width 12.7 % (11.0-16.0)
[2022-03-04 08:52] LABS: Alanine Aminotransferase 31 U/L (0-31); Aspartate Amino Transferase 22 U/L (5-31)
== END 2022-03-04 07:36 | disposition home or self-care (01) ==
LOC: HO.LAB 07:35
PROVIDERS: PCP Internal Medicine; Visit Provider Obstetrics & Gynecology
DX: Z34.92 Encounter for supervision of normal pregnancy, unspecified, second trimester (principal); Z3A.26 26 weeks gestation of pregnancy
CPT/HCPCS: 36415; 81003; 84450; 84460; 85027; 99212

== ENCOUNTER 2022-03-10 07:19 | Outpatient (REF) | payer OTHER, SELFPAY ==
[2022-03-10 08:09] LABS: Hematocrit 36.6 % (37.0-47.0); Hemoglobin 12.1 g/dl (12.0-16.0); Mean Corpuscular HGB Conc 33.1 g/dl (31.0-35.0); Mean Corpuscular Hemoglobin 30.3 pg (27.0-33.0); Mean Corpuscular Volume 91.5 fL (80.0-98.0); Mean Platelet Volume 12.6 fL (9.4-12.3); Platelet Count 147 X10*3/uL (160-400); Red Cell Distribution Width 12.5 % (11.0-16.0); White Blood Count 9.5 X10*3/uL (4.8-10.8)
[2022-03-10 08:34] LABS: Alanine Aminotransferase 35 U/L (0-31); Aspartate Amino Transferase 24 U/L (5-31)
[2022-03-10 08:37] LABS: Creatinine Urine 84.88 mg/dL; Protein/Creatinine Ratio, Ur 0.11 (<0.2); Total Protein Urine Random 9 mg/dL (<12)
== END 2022-03-10 07:20 | disposition home or self-care (01) ==
LOC: HO.LAB 07:19
PROVIDERS: PCP Internal Medicine; Visit Provider Obstetrics & Gynecology
DX: Z34.92 Encounter for supervision of normal pregnancy, unspecified, second trimester (principal); Z3A.27 27 weeks gestation of pregnancy
CPT/HCPCS: 36415; 84156; 84450; 84460; 85027; 99212

== ENCOUNTER 2022-03-13 11:17 | Outpatient (REF) | payer OTHER, SELFPAY ==
[2022-03-13 11:34] LABS: Hematocrit 34.9 % (37.0-47.0); Hemoglobin 11.9 g/dl (12.0-16.0); Mean Corpuscular HGB Conc 34.1 g/dl (31.0-35.0); Mean Corpuscular Hemoglobin 30.8 pg (27.0-33.0); Mean Corpuscular Volume 90.4 fL (80.0-98.0); Mean Platelet Volume 12.4 fL (9.4-12.3); Platelet Count 139 X10*3/uL (160-400); Red Blood Count 3.86 X10*6/uL (4.20-5.50); Red Cell Distribution Width 12.6 % (11.0-16.0)
[2022-03-13 11:38] LABS: WBC ABN SCTR FOR CBC 1
[2022-03-13 11:48] LABS: White Blood Count 11.4 X10*3/uL (4.8-10.8)
[2022-03-13 11:55] LABS: Alanine Aminotransferase 44 U/L (0-31); Aspartate Amino Transferase 27 U/L (5-31)
[2022-03-13 15:31] LABS: CT PCR NOT DETECTED (Not Detect.); NG PCR NOT DETECTED (Not Detect.)
== END 2022-03-13 11:18 | disposition home or self-care (01) ==
LOC: HO.LAB 11:17
PROVIDERS: Physician Assistant Medical; PCP Internal Medicine; Visit Provider Obstetrics & Gynecology
DX: Z34.92 Encounter for supervision of normal pregnancy, unspecified, second trimester (principal)
CPT/HCPCS: 36415; 84450; 84460; 85027; 87491; 87591

== ENCOUNTER 2022-11-13 08:28 | Outpatient (AMB) | payer OTHER, SELFPAY ==
--- NOTE | 2022-11-13 08:31 | MHC.PC.OV ---
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 Accompanied by: Self / Same As Patient Allergies No Known Allergies Allergy (Verified 11/13/22 08:32) Medication List - Last Reconciled 11/13/22 by Kenny Shin MD No Known Home Meds Tobacco use date assessed: 11/13/22 Dental Screening Dental Screen Date: 11/13/22 Did you have a dental visit in the last 12 months?: Yes Did you have a dental problem in the last 6 months where you did not have access to dental care?: No Was dental information given to patient?: Patient has dentist HPI Physical exam HPI Details Patient is 27-year-old female came in today for physical exam Patient is established with OBGYN for Pap smear and breast exams Due for labs order placed to be done today. BMI is elevated need to lose weight. Patient have a small Baby now she was seeing Dr. Goel but then was transferred to [facility] because of high risk She will call and book appointment with Dr. Goel Patient was taking bupropion 150 mg 2 times a day and buspirone 10 mg 2 times a day before she got She says that she want to go back on the medication she is feeling depressed and anxious however does not want counseling Patient is not breast feeding at this time. She has dark pigmentation inner side of her thigh and axillary area she would like to see a organisational psychologist for that. Labs to be done today BMI is elevated need to lose weight Follow-up 3 months physical exam 1 year [facility] Medical History Anxiety Depression Difficulty sleeping Dyspepsia PCOS (polycystic ovarian syndrome) Psoriasis Surgical History No pertinent past surgical history Family History Father Bipolar disorder Back problem Mother Asthma Heart problem Maternal Grandfather CVD (cardiovascular disease) Myocardial infarction Paternal Aunt Breast cancer Brother No problems noted. Sister No problems noted. Maternal Aunt Uterine cancer Ovarian cancer Other Mental health disorder Substance use disorder Social History Household Members: Significant Other Both parents involved: Yes Caregiver staying overnight: No Housing: House Are you a primary livestock caretaker to a significant other at home: No Do you presently have visiting nurse or other home services: No 75 years or older and lives alone: No Alcohol intake: never Patient Tobacco Use Status: Never used Tobacco e-Cigarette/Vaping Use: Never Used Substance Use Type: Marijuana Trauma History: denies Agree to transfusion: Yes service: No Current occupational status: employed 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 1. Little interest or pleasure in doing things: not at all 2. Feeling down, depressed, or hopeless: more than half the days 3. Trouble falling or staying asleep, or sleeping too much: nearly every day 4. Feeling tired or having little energy: nearly every day 5. Poor appetite or overeating: several days 6. Feeling bad about yourself - or that you are a failure or have let yourself or your family down: not at all 7. Trouble concentrating on things, such as reading the newspaper or watching television: not at all 8. Moving or speaking so slowly that other people could have noticed. Or the opposite - being so fidgety or restless that you have been moving around a lot more than usual: not at all 9. Thoughts that you would be better off or of hurting yourself in some way: not at all Total score: 9 Depression Screening Interpretation: Positive 81625 - PHQ-9 Billing: Yes Source: Developed by Drs. Morales Gutierres, Connie Goldman, Tadeo Wilson and colleagues, with an educational albert from [employer]. Thrive Questionnaire Date Thrive assessed: 11/13/22 I am a: Patient What is your living situation today?: I have a steady place to live Within the past 12 months, did the food you bought not last and you didn't have the money to get more?: Never true Within the past 12 months, did you worry whether your food would run out before you got money to buy more?: Never true Do you have trouble paying for medicines?: No Do you have trouble getting transportation to medical appointments?: No Do you have trouble paying your heating and electricity bill?: No Do you have trouble taking care of your child, family member or friend?: No Do you have trouble with day-to-day activities such as bathing, preparing meals, shopping, managing finances, etc.?: No Are you currently unemployed and looking for a job?: No Are you interested in more education?: No Please select the resources that you would like help with: None Currently or been in a relationship where the following occur: no concerns reported LUCIE-7 AMB Questionnaire LUCIE-7 Date LUCIE - 7 assessed: 11/13/22 Feeling nervous, anxious, or on edge: 3 = Nearly every day Not being able to stop or control worryin = Not at all Worrying too much about different things: 0 = Not at all Trouble relaxin = Nearly every day Being so restless that it is hard to sit still: 3 = Nearly every day Becoming easily annoyed or irritable: 3 = Nearly every day Feeling afraid as if something awful might happen: 0 = Not at all Total LUCIE-7 score (0-4 normal; 5-9 mild; 10-14 moderate; 15-21 severe): 12 Source: Developed by Drs. Morales Gutierres, Connie Goldman, Tadeo Wilson and colleagues, with an educational albert from [employer]. LUCIE-7 Assessment Billing LUCIE-7 Assessment Tool: LUCIE-7 Assessment 44554 Review of Systems Const Denies chills, Denies fever(s) and Denies headache(s) Eyes Denies blurry vision ENT Denies headache(s), Denies nasal discharge, Denies nasal obstruction, Denies odynophagia and Denies sinus pain Card Denies chest pain at rest and Denies chest pain with activity Resp Denies cough and Denies hemoptysis GI Denies diarrhea, Denies odynophagia, Denies vomiting and Denies hematemesis Reports as per HPI Musc Denies abnormal gait Skin/Breast Reports as per HPI Neuro Denies Neuro-related abnormal movements, Denies Abnormal speech present, Denies abnormal gait, Denies headache(s) and Denies Sensory deficit (Neuro) Psych Denies mood swings and Denies paranoia Endo Reports as per HPI Karsten/Lymph Reports as per HPI Aller/Immun Reports as per HPI Physical exam (Primary Care) Vital Signs: Last Vital Signs Pulse 74 11/13/22 08:32 BP 122/74 11/13/22 08:32 Pulse Ox 98 11/13/22 08:32 BMI result Body Mass Index 32.2 Tobacco/Smoking Status: Tobacco use Status Tobacco use date assessed 11/13/22 11/13/22 08:34 Patient Tobacco Use Status Never used Tobacco 11/13/22 08:34 Tobacco use type 11/06/21 15:23 e-Cigarette/Vaping Use Never Used 11/13/22 08:34 PHQ-9: PHQ-9 Score PHQ-9: Total score 9 11/13/22 08:39 Depression Screening Interpretation: Positive Thrive Assessment: Date of Thrive Assessment Date Thrive assessed 11/13/22 11/13/22 08:39 Currently or been in a relationship where the following occur: no concerns reported Const General: cooperative, comfortable and no acute distress Orientation/consciousness: patient oriented x3 HENMT Head: Yes normocephalic and Yes atraumatic Eyes General: appearance normal, both eyes and all related structures Pupils: Equal, round and reactive pupils present EOM: EOMs intact bilaterally Neck Neck: Yes supple and No lymphadenopathy Thyroid: Thyroid normal Lymphatic: no lymphadenopathy noted Chest Breast/axilla palpation: normal palpation of the breasts Resp Effort & Inspection: normal respiratory effort and able to speak in complete sentences Auscultation: clear to auscultation bilaterally Cardio Heart sounds: S1 normal heart sound present and S2 normal heart sound present GI Palpation (GI): Soft to palpation and nontender Auscultation: normal bowel sounds General: Yes no CVA tenderness Back/Spine/Pelvis Back: no CVA tenderness Skin General skin exam: elasticity normal and turgor normal Neuro General: patient oriented x3 and gait normal Cranial nerves: Yes Equal, round and reactive pupils present Speech: No Abnormal speech present Sensory Exam: No Sensory deficit (Neuro) Coordination: tandem gait normal and Romberg test negative Extrem General: Yes normal exam except as noted and No edema Assessment and Plan Assessment & Plan (1) Encounter for general adult medical examination with abnormal findings: Code(s): Z00.01 - Encounter for general adult medical examination with abnormal findings (2) Low TSH level: Code(s): R79.89 - Other specified abnormal findings of blood chemistry (3) Anemia: Code(s): D64.9 - Anemia, unspecified (4) Obesity due to excess calories: Code(s): E66.09 - Other obesity due to excess calories (5) Depression, major, severe recurrence: Code(s): F33.2 - Major depressive disorder, recurrent severe without psychotic features (6) Anxiety, generalized: Code(s): F41.1 - Generalized anxiety disorder Plan Patient is 27-year-old female came in today for physical exam Patient is established with OBGYN for Pap smear and breast exams Due for labs order placed to be done today. BMI is elevated need to lose weight. Patient have a small Baby now she was seeing Dr. Goel but then was transferred to [facility] because of high risk She will call and book appointment with Dr. Goel Patient was taking bupropion 150 mg 2 times a day and buspirone 10 mg 2 times a day before she got She says that she want to go back on the medication she is feeling depressed and anxious however does not want counseling Patient is not breast feeding at this time. She has dark pigmentation inner side of her thigh and axillary area she would like to see a organisational psychologist for that. Labs to be done today BMI is elevated need to lose weight Follow-up 3 months physical exam 1 year Orders: Orders Vitamin B12 Today D64.9 - Anemia, unspecified, E66.09 - Other obesity due to excess calories, R79.89 - Other specified abnormal findings of blood chemistry, Z00.01 - Encounter for general adult medical examination with abnormal findings Comprehensive [place]. Panel Fast Today D64.9 - Anemia, unspecified, E66.09 - Other obesity due to excess calories, R79.89 - Other specified abnormal findings of blood chemistry, Z00.01 - Encounter for general adult medical examination with abnormal findings Ferritin Today D64.9 - Anemia, unspecified, E66.09 - Other obesity due to excess calories, R79.89 - Other specified abnormal findings of blood chemistry, Z00.01 - Encounter for general adult medical examination with abnormal findings Folate Today D64.9 - Anemia, unspecified, E66.09 - Other obesity due to excess calories, R79.89 - Other specified abnormal findings of blood chemistry, Z00.01 - Encounter for general adult medical examination with abnormal findings LDL Cholesterol Direct Today D64.9 - Anemia, unspecified, E66.09 - Other obesity due to excess calories, R79.89 - Other specified abnormal findings of blood chemistry, Z00.01 - Encounter for general adult medical examination with abnormal findings TSH reflex Free T4 Today D64.9 - Anemia, unspecified, E66.09 - Other obesity due to excess calories, R79.89 - Other specified abnormal findings of blood chemistry, Z00.01 - Encounter for general adult medical examination with abnormal findings Vitamin D 25-OH (D2 and D3) Today D64.9 - Anemia, unspecified, E66.09 - Other obesity due to excess calories, R79.89 - Other specified abnormal findings of blood chemistry, Z00.01 - Encounter for general adult medical examination with abnormal findings Complete Blood Count Auto Diff Today D64.9 - Anemia, unspecified, E66.09 - Other obesity due to excess calories, R79.89 - Other specified abnormal findings of blood chemistry, Z00.01 - Encounter for general adult medical examination with abnormal findings Medications: New bupropion HCl (Wellbutrin SR) 150 mg PO DAILY 90 tabs 0RF Refilled buspirone 5 mg PO BID PRN 60 tabs 0RF anxiety 30 days Coding Level of Care Code Est Pt Prev Care 18-39y(63249) Diagnoses Encounter for general adult medical examination with abnormal findings Z00.01 Low TSH level R79.89 Anemia D64.9 Obesity due to excess calories E66.09 Depression, major, severe recurrence F33.2 Anxiety, generalized F41.1 Additional Codes LUCIE-7 Assessment Billing - LUCIE-7 Assessment Tool: LUCIE-7 Assessment 34663 ([id number])
[2022-11-13 08:32] VITALS: BP 122/74; PULSE 74; O2SAT 98; BMI 32.2
== END 2022-11-13 10:14 | disposition home or self-care (01) ==
PROVIDERS: Visit Provider Internal Medicine
DX: Z00.01 Encounter for general adult medical examination with abnormal findings (principal); F33.2 Major depressive disorder, recurrent severe without psychotic features; Z68.32 Body mass index [BMI] 32.0-32.9, adult; E66.09 Other obesity due to excess calories; R79.89 Other specified abnormal findings of blood chemistry; D64.9 Anemia, unspecified; F41.1 Generalized anxiety disorder
CPT/HCPCS: 99395

== ENCOUNTER 2023-01-09 11:25 | Outpatient (AMB) | payer OTHER, SELFPAY ==
--- NOTE | 2023-01-09 12:50 | AM.OFFWIN_ITS ---
Intake Vital Signs 01/09/23 12:51 Height 5 ft 3 in Weight 182 lb BMI 32.2 BP 120/80 Blood Pressure Location Rt brachial Position Sitting Pulse 62 Pulse Source Pulse Oximeter Temp 97.8 F Temp Source Temporal Artery Scan Pulse Oximetry (%) 98 Oxygen Delivery Method Room Air Intake Visit Reasons: EST/concerns of cyst/[phone] Intake Note: pt is here for c/o cyst concern in vaginal area Patient Tobacco Use Status: Never used Tobacco Allergies No Known Allergies Allergy (Verified 01/09/23 12:51) Do you need a note to return to daycare/school/sports/work: Yes HPI EST/concerns of cyst/[phone] HPI Details Patient is a 27-year-old female who comes to the walk-in clinic complaining of a possible mass in the vaginal area. She states that she had had oral and anal intercourse just prior to feeling the mass while cleaning. She reports that the size has been improving over the last few days since the intercourse, and she has not had pain or any discomfort, bleeding or discharge, difficulty urinating or defecating, itching or lesions, urinary symptoms, or o ther significant associated symptoms. She is 7 months with her 1st , and states that the baby did ride low during the . She reports no knowledge pelvic for disruption in the past, no new partners or high risk intercourse and no request for STD testing. [facility] Medical History Anxiety Depression Difficulty sleeping Dyspepsia PCOS (polycystic ovarian syndrome) Psoriasis Surgical History No pertinent past surgical history Family History Father Bipolar disorder Back problem Mother Asthma Heart problem Maternal Grandfather CVD (cardiovascular disease) Myocardial infarction Paternal Aunt Breast cancer Brother No problems noted. Sister No problems noted. Maternal Aunt Uterine cancer Ovarian cancer Other Mental health disorder Substance use disorder Social History Household Members: Significant Other Both parents involved: Yes Caregiver staying overnight: No Housing: House Are you a primary primary care physician to a significant other at home: No Do you presently have visiting nurse or other home services: No 75 years or older and lives alone: No Alcohol intake: never Patient Tobacco Use Status: Never used Tobacco e-Cigarette/Vaping Use: Never Used Substance Use Type: Marijuana Trauma History: denies Agree to transfusion: Yes service: No Current occupational status: employed 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/hazards: No Cognitive needs: No Hearing needs: No Vision needs: No Female Reproductive History Menstrual Age of Menarche: 11 Review of Systems Const All systems reviewed & are unremarkable except as noted in HPI and below Physical Exam Vital Signs: Last Vital Signs Temp 97.8 F 01/09/23 12:51 Pulse 62 01/09/23 12:51 BP 120/80 01/09/23 12:51 Pulse Ox 98 01/09/23 12:51 Oxygen Delivery Method Room Air 01/09/23 12:51 BMI result Body Mass Index 32.2 Const General: cooperative, healthy appearing, comfortable, no acute distress, alert, awake, Physically active and well groomed; No anxious, diaphoretic, ill appearing, intoxicated appearing, poor hygiene or tired appearing Nutritional Appearance: average body habitus Limitations: no limitations External Female Exam: Abnormal introitus (Some soft tissue visible) Speculum Exam - Vagina: normal vaginal discharge, vagina not atrophic, not erythematous, no foreign bodies, no lacerations, no lesions, No vaginal bleeding, tissue present in vagina, no masses, no swelling, nontender and Abnormal introitus (Some soft tissue visible) OB/external & speculum: tissue present in vagina; no foreign bodies and vaginal bleeding Psych Appearance: grossly normal Mental Status: mental status grossly normal Speech and movement: Normal speech and movement present Affect: normal affect Attitude: cooperative Thought process: Normal thought process present Insight: Good insight present (Psych) Judgement: Good judgement present (Psych) Assessment & Plan Assessment & Plan (1) Pelvic floor weakness: Code(s): N81.89 - Other female genital prolapse Plan: Patient is a 27-year-old female who is 7 months with her 1st . I think she has some pelvic floor weakness from the , and the recent anal intercourse likely caused some protrusion of tissue from the vagina. She has an appointment with Dr. Amando lanza OBGYN in few weeks, and they can evaluate at that time and discuss pelvic floor strengthening therapy, or if she needs a pessary or some other surgical procedure. I told her that she should refrain from anal intercourse until she discusses it with Dr. Goel. She does not currently have any issues urinating or defecating had no symptoms other than being able to feel the mass is at the vaginal opening. I told her to continue to monitor this, and if she had any discomfort or other issues, she can either follow-up with OBGYN sooner, or return to the walk-in if needed. Coding Level of Care Code Est Pt Level 4 (66388) Diagnoses Pelvic floor weakness N81.89
[2023-01-09 12:51] VITALS: BP 120/80; PULSE 62; TEMP 36.6; O2SAT 98; BMI 32.2
== END 2023-01-09 14:08 | disposition home or self-care (01) ==
PROVIDERS: PCP Internal Medicine; Visit Provider Physician Assistant Medical
DX: N81.89 Other female genital prolapse (principal)
CPT/HCPCS: 99051; 99214

== ENCOUNTER 2023-02-13 10:56 | Outpatient (REF) | payer OTHER, SELFPAY ==
[2023-02-13 13:43] LABS: MANUAL DIFF FLAG NO
[2023-02-13 13:47] LABS: Basophils Percent Auto 0.3 % (0-2); Eosinophils Absolute Auto 0.1 X10*3/uL (0.0-0.4); Eosinophils Percent Auto 1.5 % (0-4); Hematocrit 41.5 % (37.0-47.0); Hemoglobin 14.2 g/dl (12.0-16.0); Imm Gran Abs Auto 0.03 X10*3/uL (0.00-0.03); Imm Gran Pct Auto 0.3 % (0.0-0.4); Lymphocytes Percent Auto 30.7 % (20-40); Mean Corpuscular HGB Conc 34.2 g/dl (31.0-35.0); Mean Corpuscular Hemoglobin 29.8 pg (27.0-33.0); Monocytes Absolute Auto 0.5 X10*3/uL (0.1-1.2); Monocytes Percent Auto 5.3 % (2-11); Neutrophils Absolute Auto 5.9 x10*3/uL (2.0-8.3); Neutrophils Percent Auto 61.9 % (45-73); Platelet Count 180 X10*3/uL (160-400); Red Blood Count 4.77 X10*6/uL (4.20-5.50); Red Cell Distribution Width 12.6 % (11.0-16.0); White Blood Count 9.6 X10*3/uL (4.8-10.8)
[2023-02-13 14:04] LABS: Alanine Aminotransferase 16 U/L (0-31); Albumin Level 4.4 g/dL (3.5-5.0); Alkaline Phosphatase 77 U/L (39-117); Anion Gap 14 (12-20); Aspartate Amino Transferase 20 U/L (5-31); Bilirubin Total 0.6 mg/dL (0.0-1.0); Blood Urea Nitrogen 12 mg/dL (9-16); Calcium 9.6 mg/dL (8.4-10.2); Carbon Dioxide 19 mmol/L (22-29); Chloride 110 mmol/L (96-108); Estimated Glomerular Filt Rate > 60; Glucose Fasting 85 mg/dL (60-99); Potassium 3.7 mmol/L (3.3-5.1); Sodium 139 mmol/L (135-145); Total Protein 7.5 g/dL (6.5-8.0)
[2023-02-13 14:20] LABS: Ferritin 17 ng/mL (10-122); TSH reflex Free T4 0.43 uIU/mL (0.32-4.0)
[2023-02-13 14:34] LABS: Folate 8.6 ng/mL (> or = 4.0); Vitamin B12 578 pg/mL (200-900)
[2023-02-14 11:38] LABS: LDL Cholesterol Direct 121 mg/dL (<100)
[2023-02-17 13:45] LABS: Vitamin D 25-OH, D2 <4 ng/mL; Vitamin D 25-OH, D3 21 ng/mL; Vitamin D 25-OH, Total 21 ng/mL (30-100)
== END 2023-02-13 10:57 | disposition home or self-care (01) ==
LOC: HO.HMGCLDS 10:56
PROVIDERS: PCP Internal Medicine; Visit Provider Internal Medicine
DX: Z00.01 Encounter for general adult medical examination with abnormal findings (principal); E66.09 Other obesity due to excess calories; D64.9 Anemia, unspecified; R94.6 Abnormal results of thyroid function studies
CPT/HCPCS: 36415; 80053; 82306; 82607; 82728; 82746; 83721; 84443; 85025

== ENCOUNTER 2023-02-19 07:46 | Outpatient (AMB) | payer OTHER, SELFPAY ==
--- NOTE | 2023-02-19 07:37 | A.OFFPC_ITS ---
Intake Visit Reasons: 3 month fu Allergies No Known Allergies Allergy (Verified 02/19/23 07:37) Medication List - Last Reconciled 02/19/23 by Kenny Shin MD bupropion HCl (Wellbutrin SR) 150 mg PO DAILY buspirone 5 mg PO BID PRN 30 days Tobacco use date assessed: 02/19/23 Dental Screening Dental Screen Date: 02/19/23 Did you have a dental visit in the last 12 months?: No Was dental information given to patient?: No HPI 3 month fu HPI Details This is a tele medicine appointment to follow-up on depression and anxiety Patient was restarted on Wellbutrin for depression, patient says that the medication is making her very irritable and she is having anger outburst Before she got and delivered the baby patient was taking Wellbutrin and had a good response. She also feels that it could be because she is not taking it regularly Patient says that she does not feel like herself when she takes this medication. I am switching her to fluoxetine 10 mg capsule we will follow-up on that in 2 weeks Patient says that because of her depression she would like to go away for few days she has a time off hours from work except for 1 day She is requesting a letter for March 18 which I have provided. Anxiety is stable with buspirone 5 mg b.i.d. patient is to continue that. Follow-up March 04 10:00[facility] Medical History PCOS (polycystic ovarian syndrome) Anxiety Depression Dyspepsia Difficulty sleeping Psoriasis Surgical History No pertinent past surgical history Family History Father Bipolar disorder Back problem Mother Asthma Heart problem Maternal Grandfather CVD (cardiovascular disease) Myocardial infarction Paternal Aunt Breast cancer Brother No problems noted. Sister No problems noted. Maternal Aunt Uterine cancer Ovarian cancer Other Mental health disorder Substance use disorder Social History Household Members: Significant Other Both parents involved: Yes Caregiver staying overnight: No Housing: House Are you a primary childcare center director to a significant other at home: No Do you presently have visiting nurse or other home services: No 75 years or older and lives alone: No Alcohol intake: never Patient Tobacco Use Status: Never used Tobacco e-Cigarette/Vaping Use: Never Used Substance Use Type: Marijuana Trauma History: denies Agree to transfusion: Yes service: No Current occupational status: employed 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 Morales Gutierres, Connie Goldman, Tadeo Wilson and colleagues, with an educational albert from [employer]. Review of Systems Const Denies chills and Denies fever(s) ENT Denies epistaxis and Denies nasal discharge Card Denies chest pain Resp Denies chest congestion, Denies cough and Denies hemoptysis GI Denies diarrhea and Denies nausea Skin/Breast Denies rash Neuro Reports no additional complaints Psych Reports no additional complaints Endo Reports no additional complaints Physical exam (Primary Care) Tobacco/Smoking Status: Tobacco use Status Tobacco use date assessed 02/19/23 02/19/23 07:38 Patient Tobacco Use Status Never used Tobacco 02/19/23 07:38 Tobacco use type 11/06/21 15:23 e-Cigarette/Vaping Use Never Used 02/19/23 07:38 Thrive Assessment: Date of Thrive Assessment Date Thrive assessed 11/13/22 02/19/23 07:38 Telehealth Telehealth Location of provider rendering services: practice address Location of patient: address on file Patient Identification confirmed using: Name, : Yes Telehealth method: video Patient verbally consented to treatment: Yes Patient verbally consented to billing insurance company: Yes Patient informed of any privacy concerns related to visit: Yes Minutes spent on Phone/Video with Pt.: 16 Assessment and Plan Assessment & Plan (1) Depression, major, severe recurrence: Code(s): F33.2 - Major depressive disorder, recurrent severe without psychotic features Qualifiers: Psychotic features: without psychotic features Qualified Code(s): F33.2 - Major depressive disorder, recurrent severe without psychotic features (2) Anxiety, generalized: Code(s): F41.1 - Generalized anxiety disorder (3) Vitamin D deficiency: Code(s): E55.9 - Vitamin D deficiency, unspecified Plan This is a tele medicine appointment to follow-up on depression and anxiety Patient was restarted on Wellbutrin for depression, patient says that the medication is making her very irritable and she is having anger outburst Before she got and delivered the baby patient was taking Wellbutrin and had a good response. She also feels that it could be because she is not taking it regularly Patient says that she does not feel like herself when she takes this medication. I am switching her to fluoxetine 10 mg capsule we will follow-up on that in 2 weeks Patient says that because of her depression she would like to go away for few days she has a time off hours from work except for 1 day She is requesting a letter for March 18 which I have provided. Anxiety is stable with buspirone 5 mg b.i.d. patient is to continue that. Labs done recently reviewed with the patient she is no longer anemic Her vitamin-D level was low I have sent supplement Follow-up March 04 10:00. Medications: New cholecalciferol (vitamin D3) 25 mcg PO DAILY 90 days 90 caps 3RF cholecalciferol (vitamin D3) 25 mcg PO DAILY 90 days 90 caps 0RF fluoxetine 10 mg PO DAILY 30 caps 0RF Discontinued bupropion HCl (Wellbutrin SR) Discontinued Reason: Doctor's Order 150 mg PO DAILY 90 tabs 0RF Coding Level of Care Code Tele Est Pt Level 3 (58463) Diagnoses Severe episode of recurrent major depressive disorder, without psychotic features F33.2 Psychotic features: without psychotic features Anxiety, generalized F41.1 Vitamin D deficiency E55.9
== END 2023-02-19 08:53 | disposition home or self-care (01) ==
PROVIDERS: PCP Internal Medicine; Visit Provider Internal Medicine
DX: F33.2 Major depressive disorder, recurrent severe without psychotic features (principal); F41.1 Generalized anxiety disorder; E55.9 Vitamin D deficiency, unspecified
CPT/HCPCS: 99213

== ENCOUNTER 2023-04-17 09:02 | Outpatient (AMB) | payer OTHER, SELFPAY ==
[2023-04-17 09:08] VITALS: BP 104/62; PULSE 92; TEMP 36.8; O2SAT 100; BMI 31.4
--- NOTE | 2023-04-17 09:08 | MHC.OFFWIV ---
Intake Vital Signs 04/17/23 09:08 Height 5 ft 3 in Weight 177 lb BMI 31.4 BP 104/62 Blood Pressure Location Rt brachial Position Sitting Pulse 92 Pulse Source Pulse Oximeter Temp 98.2 F Temp Source Oral Pulse Oximetry (%) 100 Oxygen Delivery Method Room Air Intake Visit Reasons: ESt/uti(lobby) Intake Note: Pt is here today c/o urgency upon urination and wants to be tested for STD Patient Tobacco Use Status: Never used Tobacco Allergies No Known Allergies Allergy (Verified 04/17/23 09:37) HPI HPI Comments History of Present Illness Details This is a 27-year-old female with a past medical history of anxiety presenting for evaluation of urinary pressure without frequency or dysuria for the past 1 week. Patient denies having any fevers, chills, abdominal pain, vaginal discharge, dyspareunia, new sexual partners, back pain or flank pain. Patient is concerned that she has urinary tract infection however is requesting to be tested for STDs. Patient's last normal menstrual period was on March 28, 2023 [facility] Medical History PCOS (polycystic ovarian syndrome) Anxiety Depression Dyspepsia Difficulty sleeping Psoriasis Surgical History No pertinent past surgical history Family History Father Bipolar disorder Back problem Mother Asthma Heart problem Maternal Grandfather CVD (cardiovascular disease) Myocardial infarction Paternal Aunt Breast cancer Brother No problems noted. Sister No problems noted. 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/hazards: No Cognitive needs: No Hearing needs: No Vision needs: No Female Reproductive History Menstrual Age of Menarche: 11 Review of Systems Const All systems reviewed & are unremarkable except as noted in HPI and below Denies chills, Denies fever(s) and Denies weakness Card Reports no additional complaints Resp Reports no additional complaints GI Reports no additional complaints and Denies abdominal pain Denies abnormal menses, Denies hematuria, Denies dyspareunia, Denies urinary incontinence, Denies urinary urgency, Denies vaginal discharge, Denies vaginal odor, Denies vaginal pruritus and Reports other (urinary pressure) Skin/Breast Reports system reviewed and no additional complaints, except as documented Neuro Denies weakness Endo Reports no additional complaints Physical Exam Vital Signs: Last Vital Signs Temp 98.2 F 04/17/23 09:08 Pulse 92 04/17/23 09:08 BP 104/62 04/17/23 09:08 Pulse Ox 100 04/17/23 09:08 Oxygen Delivery Method Room Air 04/17/23 09:08 BMI result Body Mass Index 31.4 Cardio Rate: regular rate Rhythm: regular rhythm GI Palpation (GI): Soft to palpation, nontender and no guarding Auscultation: normal bowel sounds General: Yes bladder normal to palpation, Yes Bimanual renal exam abnormal, Yes CVA tenderness and Yes no CVA tenderness External Female Exam: normal external appearance, normal appearance of the urethra, No external swelling, No lesion and No urethral discharge Speculum Exam - Vagina: normal appearance of the vagina, normal palpation and normal vaginal discharge Speculum Exam - Cervix: normal appearance of the cervix, normal palpation, Cervical os closed, normal vervical discharge, no lesions and no masses Bimanual exam- vagina & uterus: normal palpation, bladder normal to palpation and normal palpation Bimanual Exam- Adnexa, other: normal adnexae Back/Spine/Pelvis Back: no CVA tenderness and CVA tenderness Skin General skin exam: no rashes or lesions noted Psych Appearance: grossly normal Mental Status: mental status grossly normal Insight: Good insight present (Psych) Judgement: Good judgement present (Psych) Results AMB Urinalysis, Automated UA Leukoctes 0 Yasmany/uL Last Edit by Calli Hathaway CMA on 04/17/23 09:31 UA Nitrite Negative Last Edit by Calli Hathaway CMA on 04/17/23 09:31 UA Urobilinogen 0.2 mg/dL Last Edit by Calli Hathaway CMA on 04/17/23 09:31 UA Protein 0 mg/dL Last Edit by Calli Hathaway CMA on 04/17/23 09:31 UA pH 6.0 Last Edit by Calli Hathaway CMA on 04/17/23 09:31 UA Blood 0 Ibna/uL Last Edit by Calli Hathaway CMA on 04/17/23 09:31 UA Specific [place] 1.020 Last Edit by Calli Hathaway CMA on 04/17/23 09:31 UA Ketone Negative Last Edit by Calli Hathaway CMA on 04/17/23 09:31 UA Bilirubin 0 mg/dL Last Edit by Calli Hathaway CMA on 04/17/23 09:31 UA Glucose 0 mg/dL Last Edit by Calli Hathaway CMA on 04/17/23 09:31 Results Reviewed Results Reviewed: Laboratory Last Values Urine pH (Auto) 6.0 04/17/23 09:29 Specific [place] (Auto) 1.020 04/17/23 09:29 Urine Protein (Auto) 0 mg/dL 04/17/23 09:29 Glucose (UA)(Auto) 0 mg/dL 04/17/23 09:29 Urine Ketones (Auto) Negative 04/17/23 09:29 Urine Blood (Auto) 0 Iban/uL 04/17/23 09:29 Urine Nitrite (Auto) Negative 04/17/23 09:29 Urine Bilirubin (Auto) 0 mg/dL 04/17/23 09:29 Urine Urobilinogen (Auto) 0.2 mg/dL 04/17/23 09:29 Leukocyte Esterase (Auto) 0 Yasmany/uL 04/17/23 09:29 Urinalysis reviewed with patient; culture deferred. Assessment & Plan Assessment & Plan (1) Suprapubic discomfort: Code(s): R10.2 - Pelvic and perineal pain Plan Patient reports urinary pressure over the past 1 week and the patient's urinalysis is not consistent with any acute urinary tract infection. BV panel and gonorrhea, chlamydia are obtained and results are pending at this time. Patient will be discharged home and instructed to use a barrier method of contraception until her results are available. 2:25 p.m. patient's test is positive for bacterial vaginitis and Flagyl will be sent to her pharmacy. Orders: Orders AMB Urinalysis Automated Today Z13.9 - Encounter for screening, unspecified CT NG by PCR Today R10.2 - Pelvic and perineal pain Bacterial Vaginosis Panel Today R10.2 - Pelvic and perineal pain Medications: New metronidazole 500 mg PO Q12H 14 tabs 0RF Coding Level of Care Code Est Pt Level 4 (46160) Diagnoses Suprapubic discomfort R10.2 Time Spent (min) 30
== END 2023-04-17 11:18 | disposition home or self-care (01) ==
PROVIDERS: PCP Internal Medicine; Visit Provider Physician Assistant
DX: R10.2 Pelvic and perineal pain (principal)
CPT/HCPCS: 81003; 99051; 99214

== ENCOUNTER 2023-04-17 10:20 | Outpatient (REF) | payer OTHER, SELFPAY ==
[2023-04-17 12:36] LABS: CT PCR NOT DETECTED (Not Detect.); NG PCR NOT DETECTED (Not Detect.)
[2023-04-17 14:20] LABS: BV Int Neg Control Negative (Negative); BV Int Pos Control Positive (Positive)
== END 2023-04-17 10:21 | disposition home or self-care (01) ==
LOC: HO.LAB 10:20
PROVIDERS: Visit Provider Physician Assistant
DX: R10.2 Pelvic and perineal pain (principal)
CPT/HCPCS: 0353U; 87480; 87510; 87660

== ENCOUNTER 2023-09-03 14:41 | Outpatient (AMB) | payer OTHER, SELFPAY ==
--- NOTE | 2023-09-03 14:42 | A.OFFPC_ITS ---
Intake Visit Reasons: Discuss medications [id number] Allergies No Known Allergies Allergy (Verified 09/03/23 14:42) Medication List - Last Reconciled 09/03/23 by Kenny Shin MD buspirone 5 mg PO BID PRN 30 days cholecalciferol (vitamin D3) 25 mcg PO DAILY 90 days fluoxetine 10 mg PO DAILY Tobacco use date assessed: 09/03/23 Dental Screening Dental Screen Date: 09/03/23 Did you have a dental visit in the last 12 months?: Yes Did you have a dental problem in the last 6 months where you did not have access to dental care?: No Was dental information given to patient?: Patient has dentist HPI Discuss medications [id number] HPI Details This is a telemedicine visit Patient suffers from severe anxiety and depression She was doing well on fluoxetine 10 mg and buspirone 5 mg up to 2 times a day Patient started feeling better and stopped the medication She is verbalizing to feeling anxious again And would like to restart medication I have sent buspirone 5 mg up to 2 times a day patient is to start that And we will book another appointment in 3 weeks to see if she need to add fluoxetine as well. [facility], [facility] Medical History PCOS (polycystic ovarian syndrome) Anxiety Depression Dyspepsia Difficulty sleeping Psoriasis Surgical History No pertinent past surgical history Family History Father Bipolar disorder Back problem Mother Asthma Heart problem Maternal Grandfather CVD (cardiovascular disease) Myocardial infarction Paternal Aunt Breast cancer Brother No problems noted. Sister No problems noted. Maternal Aunt Uterine cancer Ovarian cancer Other Mental health disorder Substance use disorder Social History Household Members: Significant Other Both parents involved: Yes Caregiver staying overnight: No Housing: House Are you a primary healthcare analyst to a significant other at home: No Do you presently have visiting nurse or other home services: No 75 years or older and lives alone: No Alcohol intake: never Patient Tobacco Use Status: Never used Tobacco e-Cigarette/Vaping Use: Never Used Substance Use Type: Marijuana Trauma History: denies Agree to transfusion: Yes service: No Current occupational status: employed 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 1. Little interest or pleasure in doing things: not at all 2. Feeling down, depressed, or hopeless: several days 3. Trouble falling or staying asleep, or sleeping too much: more than half the days 4. Feeling tired or having little energy: nearly every day 5. Poor appetite or overeating: several days 6. Feeling bad about yourself - or that you are a failure or have let yourself or your family down: not at all 7. Trouble concentrating on things, such as reading the newspaper or watching television: nearly every day 8. Moving or speaking so slowly that other people could have noticed. Or the opposite - being so fidgety or restless that you have been moving around a lot more than usual: nearly every day 9. Thoughts that you would be better off or of hurting yourself in some way: not at all Total score: 13 Depression Screening Interpretation: Positive Depression Screening Follow-up: Existing condition and In treatment Depression Screening Done: Yes 12734 - PHQ-9 Billing: Yes Source: Developed by Drs. Morales Gutierres, Connie Goldman, Tadeo Wilson and colleagues, with an educational albert from [employer]. Thrive Questionnaire Date Thrive assessed: 09/03/23 I am a: Patient What is your living situation today?: I have a steady place to live Within the past 12 months, did the food you bought not last and you didn't have the money to get more?: Never true Within the past 12 months, did you worry whether your food would run out before you got money to buy more?: Never true Do you have trouble paying for medicines?: No Do you have trouble getting transportation to medical appointments?: No Do you have trouble paying your heating and electricity bill?: No Do you have trouble taking care of your child, family member or friend?: No Do you have trouble with day-to-day activities such as bathing, preparing meals, shopping, managing finances, etc.?: No Are you currently unemployed and looking for a job?: No Are you interested in more education?: No Please select the resources that you would like help with: None Currently or been in a relationship where the following occur: no concerns reported THRIVE Score: 0 LUCIE-7 AMB Questionnaire LUCIE-7 Date LUCIE - 7 assessed: 09/03/23 Feeling nervous, anxious, or on edge: 3 = Nearly every day Not being able to stop or control worryin = Nearly every day Worrying too much about different things: 3 = Nearly every day Trouble relaxin = Nearly every day Being so restless that it is hard to sit still: 3 = Nearly every day Becoming easily annoyed or irritable: 3 = Nearly every day Feeling afraid as if something awful might happen: 1 = Several days Total LUCIE-7 score (0-4 normal; 5-9 mild; 10-14 moderate; 15-21 severe): 19 Source: Developed by Drs. Morales Gutierres, Connie Goldman, Tadeo Wilson and colleagues, with an educational albert from [employer]. LUCIE-7 Assessment Billing LUCIE-7 Assessment Tool: LUCIE-7 Assessment 63440 Review of Systems Const Denies chills and Denies fever(s) ENT Denies epistaxis and Denies nasal discharge Card Denies chest pain Resp Denies chest congestion, Denies cough and Denies hemoptysis GI Denies diarrhea and Denies nausea Skin/Breast Denies rash Neuro Reports no additional complaints Psych Reports no additional complaints Endo Reports no additional complaints Physical exam (Primary Care) Tobacco/Smoking Status: Tobacco use Status Tobacco use date assessed 09/03/23 09/03/23 14:46 Patient Tobacco Use Status Never used Tobacco 09/03/23 14:46 Tobacco use type 11/06/21 15:23 e-Cigarette/Vaping Use Never Used 09/03/23 14:46 PHQ-9: PHQ-9 Score PHQ-9: Total score 13 09/03/23 14:46 Depression Screening Interpretation: Positive Depression Screening Follow-up: Existing condition and In treatment Thrive Assessment: Date of Thrive Assessment Date Thrive assessed 09/03/23 09/03/23 14:46 Currently or been in a relationship where the following occur: no concerns reported Telehealth Telehealth Telehealth Platform: Telephone Location of provider rendering services: practice address Location of patient: address on file Patient Identification confirmed using: Name, : Yes Telehealth method: video (Attempted) Patient verbally consented to treatment: Yes Patient verbally consented to billing insurance company: Yes Patient informed of any privacy concerns related to visit: Yes Minutes spent on Phone/Video with Pt.: 13 Assessment and Plan Assessment & Plan (1) Depression, major, severe recurrence: Code(s): F33.2 - Major depressive disorder, recurrent severe without psychotic features Qualifiers: Psychotic features: without psychotic features Qualified Code(s): F33.2 - Major depressive disorder, recurrent severe without psychotic features (2) Anxiety, generalized: Code(s): F41.1 - Generalized anxiety disorder Plan This is a telemedicine visit Patient suffers from severe anxiety and depression She was doing well on fluoxetine 10 mg and buspirone 5 mg up to 2 times a day Patient started feeling better and stopped the medication She is verbalizing to feeling anxious again And would like to restart medication I have sent buspirone 5 mg up to 2 times a day patient is to start that And we will book another appointment in 3 weeks to see if she need to add fluoxetine as well. Medications: Refilled buspirone 5 mg PO BID PRN 60 tabs 1RF anxiety 30 days Coding Level of Care Code Tele Est Pt Level 3 (74257) Diagnoses Severe episode of recurrent major depressive disorder, without psychotic features F33.2 Psychotic features: without psychotic features Anxiety, generalized F41.1 Additional Codes LUCIE-7 Assessment Billing - LUCIE-7 Assessment Tool: LUCIE-7 Assessment [id number] ([id number])
== END 2023-09-03 16:48 | disposition home or self-care (01) ==
LOC: HO.HMGC 14:41
PROVIDERS: PCP Internal Medicine; Visit Provider Internal Medicine
DX: F33.2 Major depressive disorder, recurrent severe without psychotic features (principal); F41.1 Generalized anxiety disorder
CPT/HCPCS: 99213

== ENCOUNTER 2023-09-30 08:27 | Outpatient (AMB) | payer OTHER, SELFPAY ==
--- NOTE | 2023-09-30 08:32 | A.OFFPC_ITS ---
Intake Visit Reasons: 3wk F/u [facility]~ [phone] Allergies No Known Allergies Allergy (Verified 09/30/23 08:32) Medication List - Last Reconciled 09/30/23 by Kenny Shin MD buspirone 5 mg PO BID PRN 30 days cholecalciferol (vitamin D3) 25 mcg PO DAILY 90 days fluoxetine 10 mg PO DAILY omeprazole 20 mg PO DAILY Tobacco use date assessed: 09/30/23 Dental Screening Dental Screen Date: 09/30/23 Did you have a dental visit in the last 12 months?: Yes Did you have a dental problem in the last 6 months where you did not have access to dental care?: No Was dental information given to patient?: Patient has dentist HPI 3wk F/u [facility]~ [phone] HPI Details Patient is 28 year old female this is a telemedicine video conference Patient was restarted on buspirone 3 weeks ago 5 mg, she was on 10 mg in the past and did well Patient says with buspirone 5 mg she felt very sleepy at work so she had to stop. She can still take it in the evening when she get back home. I have sent fluoxetine 10 mg for 3 months, she has an appointment for physical exam in 1 month We will re-evaluate at that time. GERD: Patient is on omeprazole 20 mg once a day, she says that she is having heartburn even when she takes a medication We will increase the dose to b.i.d.. And also encouraged patient to follow blend diet. [facility] Medical History PCOS (polycystic ovarian syndrome) Anxiety Depression Dyspepsia Difficulty sleeping Psoriasis Surgical History No pertinent past surgical history Family History Father Bipolar disorder Back problem Mother Asthma Heart problem Maternal Grandfather CVD (cardiovascular disease) Myocardial infarction Paternal Aunt Breast cancer Brother No problems noted. Sister No problems noted. Maternal Aunt Uterine cancer Ovarian cancer Other Mental health disorder Substance use disorder Social History Household Members: Significant Other Both parents involved: Yes Caregiver staying overnight: No Housing: House Are you a primary caretaker resort to a significant other at home: No Do you presently have visiting nurse or other home services: No 75 years or older and lives alone: No Alcohol intake: never Patient Tobacco Use Status: Never used Tobacco e-Cigarette/Vaping Use: Never Used Substance Use Type: Marijuana Trauma History: denies Agree to transfusion: Yes service: No Current occupational status: employed 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 How often do you have a drink containing alcohol?: Never 3. How often do you have six or more drinks on one occasion?: Never Total Score: 0 Score Reviewed/Action Taken: Yes LUCIE-7 AMB Questionnaire LUCIE-7 Date LUCIE - 7 assessed: 09/03/23 Source: Developed by Drs. Morales Gutierres, Connie Goldman, Tadeo Wilson and colleagues, with an educational albert from [employer]. Review of Systems Const Denies chills and Denies fever(s) ENT Denies epistaxis and Denies nasal discharge Card Denies chest pain Resp Denies chest congestion, Denies cough and Denies hemoptysis GI Denies diarrhea and Denies nausea Skin/Breast Denies rash Neuro Reports no additional complaints Psych Reports no additional complaints Endo Reports no additional complaints Physical exam (Primary Care) Tobacco/Smoking Status: Tobacco use Status Tobacco use date assessed 09/30/23 09/30/23 08:33 Patient Tobacco Use Status Never used Tobacco 09/30/23 08:33 Tobacco use type 11/06/21 15:23 e-Cigarette/Vaping Use Never Used 09/30/23 08:33 Thrive Assessment: Date of Thrive Assessment Date Thrive assessed 09/03/23 09/30/23 08:33 Telehealth Telehealth Telehealth Platform: [facility] Location of provider rendering services: practice address Location of patient: address on file Patient Identification confirmed using: Name, : Yes Telehealth method: video Patient verbally consented to treatment: Yes Patient verbally consented to billing insurance company: Yes Patient informed of any privacy concerns related to visit: Yes Minutes spent on Phone/Video with Pt.: 12 Assessment and Plan Assessment & Plan (1) Depression, major, severe recurrence: Code(s): F33.2 - Major depressive disorder, recurrent severe without psychotic features Qualifiers: Psychotic features: without psychotic features Qualified Code(s): F33.2 - Major depressive disorder, recurrent severe without psychotic features (2) Anxiety, generalized: Code(s): F41.1 - Generalized anxiety disorder (3) Dyspepsia: Code(s): R10.13 - Epigastric pain Plan Patient is 28 year old female this is a telemedicine video conference Patient was restarted on buspirone 3 weeks ago 5 mg, she was on 10 mg in the past and did well Patient says with buspirone 5 mg she felt very sleepy at work so she had to stop. She can still take it in the evening when she get back home. I have sent fluoxetine 10 mg for 3 months, she has an appointment for physical exam in 1 month We will re-evaluate at that time. GERD: Patient is on omeprazole 20 mg once a day, she says that she is having heartburn even when she takes a medication We will increase the dose to b.i.d.. And also encouraged patient to follow blend diet. Medications: Changed From omeprazole 20 mg PO DAILY 30 caps 0RF To omeprazole 20 mg PO BID 90 days 180 caps 0RF Refilled fluoxetine 10 mg PO DAILY 90 caps 0RF Coding Level of Care Code Tele Est Pt Level 3 (52574) Diagnoses Severe episode of recurrent major depressive disorder, without psychotic featu res F33.2 Psychotic features: without psychotic features Anxiety, generalized F41.1 Dyspepsia R10.13
== END 2023-09-30 09:30 | disposition home or self-care (01) ==
PROVIDERS: PCP Internal Medicine; Visit Provider Internal Medicine
DX: F33.2 Major depressive disorder, recurrent severe without psychotic features (principal); F41.1 Generalized anxiety disorder; R10.13 Epigastric pain
CPT/HCPCS: 99213

== ENCOUNTER 2023-11-17 08:21 | Outpatient (AMB) | payer OTHER, SELFPAY ==
--- NOTE | 2023-11-17 08:23 | A.OFFPC_ITS ---
Vital Signs 11/17/23 08:24 Height 5 ft 3 in Weight 175 lb 6 oz BMI 31.1 BP 122/64 Blood Pressure Location Rt brachial Position Sitting Pulse 77 Pulse Source Pulse Oximeter Pulse Oximetry (%) 96 Oxygen Delivery Method Room Air Intake Visit Reasons: PE Allergies No Known Allergies Allergy (Verified 11/17/23 08:27) Medication List - Last Reconciled 11/17/23 by Kenny Shin MD buspirone 5 mg PO BID PRN 30 days cholecalciferol (vitamin D3) 25 mcg PO DAILY 90 days fluoxetine 10 mg PO DAILY omeprazole 20 mg PO BID 90 days Tobacco use date assessed: 11/17/23 Dental Screening Dental Screen Date: 11/17/23 Did you have a dental visit in the last 12 months?: Yes Did you have a dental problem in the last 6 months where you did not have access to dental care?: No Was dental information given to patient?: Patient has dentist HPI PE HPI Details Patient is 28-year-old female came in today physical exam Continued to feel anxiety, patient says that she has OCD which is causing distress She would like to do more at work and then when she comes home she does not rest And now she also have a 2nd job She is taking fluoxetine 10 mg I am increasing the dose to 20 mg we will re- evaluate in 3 months Buspirone as needed Patient will call Dr. Goel for regular OBGYN visit Vitamin-D supplement sent Patient also have psoriasis I have sent clobetasol cream for that to be used up to 2 times a day until rash controlled then as needed BMI is elevated need to lose weight Follow-up 3 months physical exam 1 year Labs to be done fasting today Complaining of feeling tired [facility] Medical History PCOS (polycystic ovarian syndrome) Anxiety Depression Dyspepsia Difficulty sleeping Psoriasis Surgical History No pertinent past surgical history Family History Father Bipolar disorder Back problem Mother Asthma Heart problem Maternal Grandfather CVD (cardiovascular disease) Myocardial infarction Paternal Aunt Breast cancer Brother No problems noted. Sister No problems noted. 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/hazards: No Cognitive needs: No Hearing needs: No Vision needs: No Female Reproductive History Menstrual Age of Menarche: 11 Questionnaire Thrive Questionnaire Date Thrive assessed: 11/17/23 I am a: Patient What is your living situation today?: I choose not to answer this question Within the past 12 months, did the food you bought not last and you didn't have the money to get more?: I choose not to answer this question Within the past 12 months, did you worry whether your food would run out before you got money to buy more?: I choose not to answer this question Do you have trouble paying for medicines?: I choose not to answer this question Do you have trouble getting transportation to medical appointments?: I choose not to answer this question Do you have trouble paying your heating and electricity bill?: I choose not to answer this question Do you have trouble taking care of your child, family member or friend?: I choose not to answer this question Do you have trouble with day-to-day activities such as bathing, preparing meals, shopping, managing finances, etc.?: I choose not to answer this question Are you currently unemployed and looking for a job?: I choose not to answer this question Are you interested in more education?: I choose not to answer this question Please select the resources that you would like help with: Housing/Long Term Currently or been in a relationship where the following occur: I choose not to answer THRIVE Score: 0 AUDIT C Alcohol Use Questionnaire (AUDIT-C) 1. How often do you have a drink containing alcohol?: Never 3. How often do you have six or more drinks on one occasion?: Never Total Score: 0 Score Reviewed/Action Taken: Yes LUCIE-7 AMB Questionnaire LUCIE-7 Date LUCIE - 7 assessed: 11/17/23 Feeling nervous, anxious, or on edge: 0 = Not at all Not being able to stop or control worryin = Not at all Worrying too much about different things: 0 = Not at all Trouble relaxin = Not at all Being so restless that it is hard to sit still: 0 = Not at all Becoming easily annoyed or irritable: 0 = Not at all Feeling afraid as if something awful might happen: 0 = Not at all Total LUCIE-7 score (0-4 normal; 5-9 mild; 10-14 moderate; 15-21 severe): 0 Source: Developed by Drs. Morales Gutierres, Connie Goldman, Tadeo Wilson and colleagues, with an educational albert from [employer]. LUCIE-7 Assessment Billing LUCIE-7 Assessment Tool: LUCIE-7 Assessment 67794 Review of Systems Const Denies chills, Denies fever(s) and Denies headache(s) Eyes Denies blurry vision ENT Denies headache(s), Denies nasal discharge, Denies nasal obstruction, Denies odynophagia and Denies sinus pain Card Denies chest pain at rest and Denies chest pain with activity Resp Denies cough and Denies hemoptysis GI Denies diarrhea, Denies odynophagia, Denies vomiting and Denies hematemesis Reports as per HPI Musc Denies abnormal gait Skin/Breast Reports as per HPI Neuro Denies Neuro-related abnormal movements, Denies Abnormal speech present, Denies abnormal gait, Denies headache(s) and Denies Sensory deficit (Neuro) Psych Denies mood swings and Denies paranoia Endo Reports as per HPI Karsten/Lymph Reports as per HPI Aller/Immun Reports as per HPI Physical exam (Primary Care) Vital Signs: Last Vital Signs Pulse 77 11/17/23 08:24 BP 122/64 11/17/23 08:24 Pulse Ox 96 11/17/23 08:24 Oxygen Delivery Method Room Air 11/17/23 08:24 BMI result Body Mass Index 31.1 Tobacco/Smoking Status: Tobacco use Status Tobacco use date assessed 11/17/23 11/17/23 08:28 Patient Tobacco Use Status Never used Tobacco 11/17/23 08:28 Tobacco use type 11/06/21 15:23 e-Cigarette/Vaping Use Never Used 11/17/23 08:28 Thrive Assessment: Date of Thrive Assessment Date Thrive assessed 11/17/23 11/17/23 08:28 Currently or been in a relationship where the following occur: I choose not to answer Const General: cooperative, comfortable and no acute distress Orientation/consciousness: patient oriented x3 HENMT Head: Yes normocephalic and Yes atraumatic Eyes General: appearance normal, both eyes and all related structures Pupils: Equal, round and reactive pupils present EOM: EOMs intact bilaterally Neck Neck: Yes supple and No lymphadenopathy Thyroid: Thyroid normal Lymphatic: no lymphadenopathy noted Chest Breast/axilla palpation: normal palpation of the breasts Resp Effort & Inspection: normal respiratory effort and able to speak in complete sentences Auscultation: clear to auscultation bilaterally Cardio Heart sounds: S1 normal heart sound present and S2 normal heart sound present GI Palpation (GI): Soft to palpation and nontender Auscultation: normal bowel sounds General: Yes no CVA tenderness Back/Spine/Pelvis Back: no CVA tenderness Skin General skin exam: elasticity normal and turgor normal Neuro General: patient oriented x3 and gait normal Cranial nerves: Yes Equal, round and reactive pupils present Speech: No Abnormal speech present Sensory Exam: No Sensory deficit (Neuro) Coordination: tandem gait normal and Romberg test negative Extrem General: Yes normal exam except as noted and No edema Assessment and Plan Assessment & Plan (1) Encounter for general adult medical examination with abnormal findings: Code(s): Z00.01 - Encounter for general adult medical examination with abnormal findings (2) Anxiety, generalized: Code(s): F41.1 - Generalized anxiety disorder (3) Dyspepsia: Code(s): R10.13 - Epigastric pain (4) Difficulty sleeping: Code(s): G47.9 - Sleep disorder, unspecified (5) Psoriasis: Code(s): L40.9 - Psoriasis, unspecified (6) Compulsive disorder: Code(s): F42.9 - Obsessive-compulsive disorder, unspecified Plan Patient is 28-year-old female came in today physical exam Continued to feel anxiety, patient says that she has OCD which is causing distress She would like to do more at work and then when she comes home she does not rest And now she also have a 2nd job She is taking fluoxetine 10 mg I am increasing the dose to 20 mg we will re- evaluate in 3 months Buspirone as needed Patient will call Dr. Goel for regular OBGYN visit Vitamin-D supplement sent Patient also have psoriasis I have sent clobetasol cream for that to be used up to 2 times a day until rash controlled then as needed BMI is elevated need to lose weight Follow-up 3 months physical exam 1 year Labs to be done fasting today Complaining of feeling tired Orders: Orders Vitamin B12 Today F41.1 - Generalized anxiety disorder, F42.9 - Obsessive- compulsive disorder, unspecified, G47.9 - Sleep disorder, unspecified, L40.9 - Psoriasis, unspecified, R10.13 - Epigastric pain, Z00.01 - Encounter for general adult medical examination with abnormal findings Complete Blood Count Auto Diff Today F41.1 - Generalized anxiety disorder, F42.9 - Obsessive-compulsive disorder, unspecified, G47.9 - Sleep disorder, unspecified, L40.9 - Psoriasis, unspecified, R10.13 - Epigastric pain, Z00.01 - Encounter for general adult medical examination with abnormal findings Comprehensive [place]. Panel Fast Today F41.1 - Generalized anxiety disorder, F42.9 - Obsessive-compulsive disorder, unspecified, G47.9 - Sleep disorder, unspecified, L40.9 - Psoriasis, unspecified, R10.13 - Epigastric pain, Z00.01 - Encounter for general adult medical examination with abnormal findings TSH reflex Free T4 Today F41.1 - Generalized anxiety disorder, F42.9 - Obsessive-compulsive disorder, unspecified, G47.9 - Sleep disorder, unspecified, L40.9 - Psoriasis, unspecified, R10.13 - Epigastric pain, Z00.01 - Encounter for general adult medical examination with abnormal findings Folate Today F41.1 - Generalized anxiety disorder, F42.9 - Obsessive-compulsive disorder, unspecified, G47.9 - Sleep disorder, unspecified, L40.9 - Psoriasis, unspecified, R10.13 - Epigastric pain, Z00.01 - Encounter for general adult medical examination with abnormal findings Vitamin D 25-OH (D2 and D3) Today F41.1 - Generalized anxiety disorder, F42.9 - Obsessive-compulsive disorder, unspecified, G47.9 - Sleep disorder, unspecified, L40.9 - Psoriasis, unspecified, R10.13 - Epigastric pain, Z00.01 - Encounter for general adult medical examination with abnormal findings Lipid Panel Today F41.1 - Generalized anxiety disorder, F42.9 - Obsessive- compulsive disorder, unspecified, G47.9 - Sleep disorder, unspecified, L40.9 - Psoriasis, unspecified, R10.13 - Epigastric pain, Z00.01 - Encounter for general adult medical examination with abnormal findings Magnesium Today F41.1 - Generalized anxiety disorder, F42.9 - Obsessive- compulsive disorder, unspecified, G47.9 - Sleep disorder, unspecified, L40.9 - Psoriasis, unspecified, R10.13 - Epigastric pain, Z00.01 - Encounter for general adult medical examination with abnormal findings Ferritin Today F41.1 - Generalized anxiety disorder, F42.9 - Obsessive- compulsive disorder, unspecified, G47.9 - Sleep disorder, unspecified, L40.9 - Psoriasis, unspecified, R10.13 - Epigastric pain, Z00.01 - Encounter for general adult medical examination with abnormal findings Medications: New famotidine 20 mg PO DAILY 90 tabs 0RF Stomach pain clobetasol 0.05% 1 appl topical BID 60 grams 2RF 2 weeks Changed From fluoxetine 10 mg PO DAILY 90 caps 0RF To fluoxetine 20 mg PO DAILY 90 caps 0RF 90 days Refilled omeprazole 20 mg PO BID 180 caps 0RF 90 days cholecalciferol (vitamin D3) 25 mcg PO DAILY 90 caps 3RF 90 days Coding Level of Care Code Est Pt Level 3 (31856) Est Pt Prev Care 18-39y(83816) Diagnoses Encounter for general adult medical examination with abnormal findings Z00.01 Anxiety, generalized F41.1 Dyspepsia R10.13 Difficulty sleeping G47.9 Psoriasis L40.9 Compulsive disorder F42.9 Additional Codes LUCIE-7 Assessment Billing - LUCIE-7 Assessment Tool: LUCIE-7 Assessment [id number] ([id number])
[2023-11-17 08:24] VITALS: BP 122/64; PULSE 77; O2SAT 96; BMI 31.1
== END 2023-11-17 09:03 | disposition home or self-care (01) ==
PROVIDERS: PCP Internal Medicine; Visit Provider Internal Medicine
DX: Z00.01 Encounter for general adult medical examination with abnormal findings (principal); F41.1 Generalized anxiety disorder; R10.13 Epigastric pain; G47.9 Sleep disorder, unspecified; L40.9 Psoriasis, unspecified; F42.9 Obsessive-compulsive disorder, unspecified
CPT/HCPCS: 99213; 99395

== ENCOUNTER 2023-11-17 08:50 | Outpatient (REF) | payer OTHER, SELFPAY ==
[2023-11-17 10:31] LABS: MANUAL DIFF FLAG NO
[2023-11-17 10:39] LABS: Basophils Percent Auto 0.5 % (0-2); Eosinophils Absolute Auto 0.3 X10*3/uL (0.0-0.4); Eosinophils Percent Auto 3.8 % (0-4); Hemoglobin 13.6 g/dl (12.0-16.0); Imm Gran Abs Auto 0.02 X10*3/uL (0.00-0.03); Imm Gran Pct Auto 0.3 % (0.0-0.4); Lymphocytes Absolute Auto 2.3 X10*3/uL (1.2-4.9); Lymphocytes Percent Auto 34.2 % (20-40); Mean Corpuscular HGB Conc 33.2 g/dl (31.0-35.0); Mean Corpuscular Hemoglobin 29.6 pg (27.0-33.0); Mean Corpuscular Volume 89.1 fL (80.0-98.0); Mean Platelet Volume 12.9 fL (9.4-12.3); Monocytes Absolute Auto 0.4 X10*3/uL (0.1-1.2); Monocytes Percent Auto 5.4 % (2-11); Neutrophils Absolute Auto 3.7 x10*3/uL (2.0-8.3); Neutrophils Percent Auto 55.8 % (45-73); Platelet Count 193 X10*3/uL (160-400); Red Cell Distribution Width 12.4 % (11.0-16.0); White Blood Count 6.7 X10*3/uL (4.8-10.8)
[2023-11-17 11:11] LABS: Alanine Aminotransferase 16 U/L (0-31); Albumin Level 4.2 g/dL (3.5-5.0); Alkaline Phosphatase 61 U/L (39-117); Anion Gap 11 (12-20); Aspartate Amino Transferase 16 U/L (5-31); Bilirubin Total 1.1 mg/dL (0.0-1.0); Blood Urea Nitrogen 9 mg/dL (9-16); Calcium 9.5 mg/dL (8.4-10.2); Carbon Dioxide 23 mmol/L (22-29); Chloride 108 mmol/L (96-108); Cholesterol 165 mg/dL (<200); Estimated Glomerular Filt Rate > 60; Glucose Fasting 87 mg/dL (60-99); HDL Cholesterol 38 mg/dL (>40); LDL Cholesterol Calculated 109 mg/dL (<100); Potassium 3.7 mmol/L (3.3-5.1); Sodium 138 mmol/L (135-145); Total Protein 6.9 g/dL (6.5-8.0); Triglycerides 92 mg/dL (<150)
[2023-11-17 11:12] LABS: Ferritin 23 ng/mL (10-122); TSH reflex Free T4 0.34 uIU/mL (0.32-4.0)
[2023-11-17 12:03] LABS: Folate 9.8 ng/mL (> or = 4.0); Vitamin B12 623 pg/mL (200-900)
[2023-11-21 16:33] LABS: Vitamin D 25-OH, D2 <4 ng/mL; Vitamin D 25-OH, D3 24 ng/mL; Vitamin D 25-OH, Total 24 ng/mL (30-100)
== END 2023-11-17 08:51 | disposition home or self-care (01) ==
LOC: HO.HMGCLDS 08:50
PROVIDERS: PCP Internal Medicine; Visit Provider Internal Medicine
DX: Z00.01 Encounter for general adult medical examination with abnormal findings (principal); F41.1 Generalized anxiety disorder; R10.13 Epigastric pain; G47.9 Sleep disorder, unspecified; L40.9 Psoriasis, unspecified; F42.9 Obsessive-compulsive disorder, unspecified
CPT/HCPCS: 36415; 80053; 80061; 82306; 82607; 82728; 82746; 83735; 84443; 85025

== ENCOUNTER 2023-12-17 08:08 | Outpatient (AMB) | payer OTHER, SELFPAY ==
--- NOTE | 2023-12-17 08:35 | MHC.OFFWIV ---
Intake Vital Signs 12/17/23 08:37 Height 5 ft 3 in Weight 175 lb BMI 31.0 BP 114/76 Blood Pressure Location Rt brachial Position Sitting Pulse 68 Pulse Source Pulse Oximeter Pulse Oximetry (%) 98 Oxygen Delivery Method Room Air Intake Visit Reasons: EP UTI? Intake Note: Patient here for Foul odor and the feeling of not completely emptying bladder. Patient Tobacco Use Status: Never used Tobacco Allergies No Known Allergies Allergy (Verified 12/17/23 08:38) Medication List - Last Reconciled 12/17/23 by Kenny Shin MD buspirone 5 mg PO BID PRN 30 days cholecalciferol (vitamin D3) 25 mcg PO DAILY 90 days clobetasol 0.05% 1 appl topical BID 2 weeks famotidine 20 mg PO DAILY fluoxetine 20 mg PO DAILY 90 days omeprazole 20 mg PO BID 90 days sucralfate (Carafate) 1 g PO BID Do you need a note to return to daycare/school/sports/work: No HPI EP UTI? HPI Details Patient is 28-year-old female came in today to be evaluated for possible bacterial infection vaginally Patient says that she has been noticing slight vaginal discharge with fishy odor Which is not constant She has had similar infection past Urine test done today does not show any signs of infection We have taken vaginal swab to test for any bacterial overgrowth, Trichomonas or yeast Further management after the reports [facility] Medical History PCOS (polycystic ovarian syndrome) Anxiety Depression Dyspepsia Difficulty sleeping Psoriasis Surgical History No pertinent past surgical history Family History Father Bipolar disorder Back problem Mother Asthma Heart problem Maternal Grandfather CVD (cardiovascular disease) Myocardial infarction Paternal Aunt Breast cancer Brother No problems noted. Sister No problems noted. 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 Current occupational exposures/hazards: No Cognitive needs: No Hearing needs: No Vision needs: No Female Reproductive History Menstrual Age of Menarche: 11 Review of Systems Const All systems reviewed & are unremarkable except as noted in HPI and below Physical Exam Vital Signs: Last Vital Signs Pulse 68 12/17/23 08:37 BP 114/76 12/17/23 08:37 Pulse Ox 98 12/17/23 08:37 Oxygen Delivery Method Room Air 12/17/23 08:37 BMI result Body Mass Index 31.0 Const General: no acute distress Orientation/consciousness: patient oriented x3 Eyes General: appearance normal, both eyes and all related structures Resp Effort & Inspection: normal respiratory effort and able to speak in complete sentences Auscultation: clear to auscultation bilaterally GI Other: No abdominal pain Neuro General: patient oriented x3 Psych Mental Status: mental status grossly normal Results AMB Urinalysis, Automated UA Leukoctes 0 Yasmany/uL Last Edit by Savi Servin CMA on 12/17/23 08:39 UA Nitrite Negative Last Edit by Savi Servin CMA on 12/17/23 08:39 UA Urobilinogen 0.2 mg/dL Last Edit by Savi Servin CMA on 12/17/23 08:39 UA Protein 0 mg/dL Last Edit by Savi Servin CMA on 12/17/23 08:39 UA pH 5.5 Last Edit by Savi Servin CMA on 12/17/23 08:39 UA Blood 0 Iban/uL Last Edit by Savi Servin CMA on 12/17/23 08:39 UA Specific [place] 1.030 Last Edit by Savi Servin CMA on 12/17/23 08:39 UA Ketone Negative Last Edit by Savi Servin CMA on 12/17/23 08:39 UA Bilirubin 1 mg/dL Last Edit by Savi Servin CMA on 12/17/23 08:39 UA Glucose 0 mg/dL Last Edit by Savi Servin CMA on 12/17/23 08:39 AMB Urinalysis, Automated UA Leukoctes 0 Yasmany/uL Last Edit by PIA Stone on 12/17/23 08:42 UA Nitrite Negative Last Edit by Leilani Tucker [facility] on 12/17/23 08:42 UA Urobilinogen 0.2 mg/dL Last Edit by Leilani Tucker [facility] on 12/17/23 08:42 UA Protein 0 mg/dL Last Edit by Leilani Tucker [facility] on 12/17/23 08:42 UA pH 5.5 Last Edit by Leilani Tucker [facility] on 12/17/23 08:42 UA Blood 0 Iban/uL Last Edit by Leilani Tucker [facility] on 12/17/23 08:42 UA Specific [place] 1.030 Last Edit by Leilani Tucker [facility] on 12/17/23 08:42 UA Ketone Negative Last Edit by Leilani Tucker [facility] on 12/17/23 08:42 UA Bilirubin 1 mg/dL Last Edit by Leilani Tucker [facility] on 12/17/23 08:42 UA Glucose 0 mg/dL Last Edit by Leilani Tucker [facility] on 12/17/23 08:42 Results Reviewed Results Reviewed: Laboratory Last Values Urine pH (Auto) 5.5 12/17/23 08:41 Specific [place] (Auto) 1.030 12/17/23 08:41 Urine Protein (Auto) 0 mg/dL 12/17/23 08:41 Glucose (UA)(Auto) 0 mg/dL 12/17/23 08:41 Urine Ketones (Auto) Negative 12/17/23 08:41 Urine Blood (Auto) 0 Iban/uL 12/17/23 08:41 Urine Nitrite (Auto) Negative 12/17/23 08:41 Urine Bilirubin (Auto) 1 mg/dL 12/17/23 08:41 Urine Urobilinogen (Auto) 0.2 mg/dL 12/17/23 08:41 Leukocyte Esterase (Auto) 0 Yasmany/uL 12/17/23 08:41 Assessment & Plan Assessment & Plan (1) Vaginal discharge: Code(s): N89.8 - Other specified noninflammatory disorders of vagina Plan Patient is 28-year-old female came in today to be evaluated for possible bacterial infection vaginally Patient says that she has been noticing slight vaginal discharge with fishy odor Which is not constant She has had similar infection past Urine test done today does not show any signs of infection We have taken vaginal swab to test for any bacterial overgrowth, Trichomonas or yeast Further management after the reports Orders: Orders AMB Urinalysis Automated Today Z13.9 - Encounter for screening, unspecified Bacterial Vaginosis Panel Today N89.8 - Other specified noninflammatory disorders of vagina AMB Urinalysis Automated Today Z13.9 - Encounter for screening, unspecified Coding Level of Care Code Est Pt Level 3 (55804) Diagnoses Vaginal discharge N89.8
[2023-12-17 08:37] VITALS: BP 114/76; PULSE 68; O2SAT 98; BMI 31.0
== END 2023-12-17 08:54 | disposition home or self-care (01) ==
PROVIDERS: PCP Internal Medicine; Visit Provider Internal Medicine
DX: N89.8 Other specified noninflammatory disorders of vagina (principal)
CPT/HCPCS: 81003; 99213

== ENCOUNTER 2023-12-17 09:16 | Outpatient (REF) | payer OTHER, SELFPAY ==
[2023-12-18 11:18] LABS: Bacterial Vaginosis PCR POSITIVE (Negative); Candida Group PCR DETECTED (Not Detect); Candida glab krusei PCR NOT DETECTED (Not Detect); Trichomonas vaginalis PCR NOT DETECTED (Not Detect)
== END 2023-12-17 09:17 | disposition home or self-care (01) ==
LOC: HO.LAB 09:16
PROVIDERS: Visit Provider Internal Medicine
DX: N89.8 Other specified noninflammatory disorders of vagina (principal)
CPT/HCPCS: 0352U

== ENCOUNTER 2024-01-04 13:14 | Outpatient (REF) | payer OTHER, SELFPAY ==
[2024-01-05 12:59] LABS: Bacterial Vaginosis PCR NEGATIVE (Negative); Candida Group PCR NOT DETECTED (Not Detect); Candida glab krusei PCR NOT DETECTED (Not Detect); Trichomonas vaginalis PCR NOT DETECTED (Not Detect)
== END 2024-01-04 13:15 | disposition home or self-care (01) ==
LOC: HO.LAB 13:14
PROVIDERS: Physician Assistant; PCP Internal Medicine
DX: N89.8 Other specified noninflammatory disorders of vagina (principal)
CPT/HCPCS: 0352U; 81003

== ENCOUNTER 2024-01-04 13:14 | Outpatient (AMB) | payer OTHER, SELFPAY ==
--- NOTE | 2024-01-04 13:20 | MHC.OFFWIV ---
Intake Vital Signs 01/04/24 13:22 Height 5 ft 3 in Weight 172 lb BMI 30.5 BP 120/78 Blood Pressure Location Lt brachial Position Sitting Pulse 85 Pulse Source Pulse Oximeter Temp 98.4 F Temp Source Oral Pulse Oximetry (%) 98 Oxygen Delivery Method Room Air Intake Visit Reasons: EP UTI? Intake Note: pt c/o vaginal itching. Had BV 2 weeks ago Patient Tobacco Use Status: Former Tobacco user Allergies No Known Allergies Allergy (Verified 01/04/24 13:21) Do you need a note to return to daycare/school/sports/work: Yes HPI HPI Comments History of Present Illness Details Patient is a 28-year-old female complaining of white chunky discharge, labial redness and irritation and itching. She states that 2 weeks ago she was diagnosed with a yeast infection and bacterial vaginosis. She took the metronidazole in fall and then took 1 fluconazole the next day after she finished the metronidazole and then 3 days later took the other fluconazole. She states she feels like the vaginal itching got worse after the fluconazole. She has not tried any topical creams. She denies any pain with urination, blood in her urination, increased frequency or urgency or fevers. She states she went from using a soap for sensitive skin to a stronger smelling soap and use it in the vaginal area and thinks this might be part of the problem. She states she is sexually active with the same partner she always has been. She states she does use a vibrator but she washes it in between with a very harsh soap. [facility] Medical History PCOS (polycystic ovarian syndrome) Anxiety Depression Dyspepsia Difficulty sleeping Psoriasis Surgical History No pertinent past surgical history Family History Father Bipolar disorder Back problem Mother Asthma Heart problem Maternal Grandfather CVD (cardiovascular disease) Myocardial infarction Paternal Aunt Breast cancer Brother No problems noted. Sister No problems noted. Maternal Aunt Uterine cancer Ovarian cancer Other Mental health disorder Substance use disorder Social History Household Members: Significant Other Both parents involved: Yes Caregiver staying overnight: No Housing: House Are you a primary assisted living care manager to a significant other at home: No Do you presently have visiting nurse or other home services: No 75 years or older and lives alone: No Alcohol intake: never Patient Tobacco Use Status: Former Tobacco user e-Cigarette/Vaping Use: Never Used Substance Use Type: Marijuana Trauma History: denies Agree to transfusion: Yes service: No Current occupational status: employed 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/hazards: No Cognitive needs: No Hearing needs: No Vision needs: No Female Reproductive History Menstrual Age of Menarche: 11 Review of Systems Const All systems reviewed & are unremarkable except as noted in HPI and below Physical Exam Vital Signs: Last Vital Signs Temp 98.4 F 01/04/24 13:22 Pulse 85 01/04/24 13:22 BP 120/78 01/04/24 13:22 Pulse Ox 98 01/04/24 13:22 Oxygen Delivery Method Room Air 01/04/24 13:22 BMI result Body Mass Index 30.5 Const General: cooperative, healthy appearing, comfortable, no acute distress and well developed Orientation/consciousness: patient oriented x3 Limitations: no limitations HEENT Head: Yes normal to inspection Ears: hearing grossly normal bilaterally General nose exam: Normal external nose present Face and sinus: Yes normal facial exam Eyes General: appearance normal, both eyes and all related structures Neck Neck: Yes normal visual inspection and Yes full ROM Resp Effort & Inspection: normal respiratory effort and able to speak in complete sentences Skin General skin exam: no rashes or lesions noted Neuro General: patient oriented x3 Extrem General: Yes normal to inspection Results AMB Urinalysis, Automated UA Leukoctes 0 Yasmany/uL Last Edit by Gonsalo Sanchez CMA on 01/04/24 13:35 UA Nitrite Negative Last Edit by Gonsalo Sanchez CMA on 01/04/24 13:35 UA Urobilinogen 0.2 mg/dL Last Edit by Gonsalo Sanchez CMA on 01/04/24 13:35 UA Protein 0 mg/dL Last Edit by Gonsalo Sanchez CMA on 01/04/24 13:35 UA pH 6.5 Last Edit by Gonsalo Sanchez CMA on 01/04/24 13:35 UA Blood 0 Iban/uL Last Edit by Gonsalo Sanchez CMA on 01/04/24 13:35 UA Specific [place] 1.005 Last Edit by Gonsalo Sanchez, INFECTION CONTROL PRACTITIONER on 01/04/24 13:35 UA Ketone Negative Last Edit by Gonsalo Sanchez, INFECTION CONTROL PRACTITIONER on 01/04/24 13:35 UA Bilirubin 0 mg/dL Last Edit by Gonsalo Sanchez, INFECTION CONTROL PRACTITIONER on 01/04/24 13:35 UA Glucose 0 mg/dL Last Edit by Gonsalo Sanchez, INFECTION CONTROL PRACTITIONER on 01/04/24 13:35 Results Reviewed Results Reviewed: Laboratory Last Values Urine pH (Auto) 6.5 01/04/24 13:34 Specific [place] (Auto) 1.005 01/04/24 13:34 Urine Protein (Auto) 0 mg/dL 01/04/24 13:34 Glucose (UA)(Auto) 0 mg/dL 01/04/24 13:34 Urine Ketones (Auto) Negative 01/04/24 13:34 Urine Blood (Auto) 0 Iban/uL 01/04/24 13:34 Urine Nitrite (Auto) Negative 01/04/24 13:34 Urine Bilirubin (Auto) 0 mg/dL 01/04/24 13:34 Urine Urobilinogen (Auto) 0.2 mg/dL 01/04/24 13:34 Leukocyte Esterase (Auto) 0 Yasmany/uL 01/04/24 13:34 Assessment & Plan Assessment & Plan (1) Vaginal discharge: Code(s): N89.8 - Other specified noninflammatory disorders of vagina Plan: Patient self swabbed bacterial vaginosis panel, we will treat based on results. Also recommended she use a day fungal cream on her labia, if no improvement in her symptoms after a few days, she could try Vagisil. Plan See above Orders: Orders Bacterial Vaginosis Panel Today Jackelyn Viera PA-C N89.8 - Other specified noninflammatory disorders of vagina AMB Urinalysis Automated Today Mirtha Patrick PA-C Z13.9 - Encounter for screening, unspecified Coding Level of Care Code Est Pt Level 3 (06435) Diagnoses Vaginal discharge N89.8
[2024-01-04 13:22] VITALS: BP 120/78; PULSE 85; TEMP 36.9; O2SAT 98; BMI 30.5
== END 2024-01-04 14:17 | disposition home or self-care (01) ==
PROVIDERS: PCP Internal Medicine; Visit Provider Physician Assistant
DX: Z13.9 Encounter for screening, unspecified (principal); N89.8 Other specified noninflammatory disorders of vagina

== ENCOUNTER 2024-01-10 08:51 | Outpatient (AMB) | payer OTHER, SELFPAY ==
[2024-01-10 09:05] VITALS: BP 100/68; BMI 30.5
--- NOTE | 2024-01-10 09:05 | A.OFFVIS_ITS ---
Vital Signs 01/10/24 09:05 Height 5 ft 3 in Weight 172 lb BMI 30.5 BP 100/68 Intake Visit Reasons: vag itch Interventional Sale Consultant Required: No Information Interpreted: clinical only Railway Signalling Engineer: Railway Signalling Engineer Present Allergies No Known Allergies Allergy (Verified 01/10/24 09:06) Medication List - Last Reconciled 01/10/24 by Ness Arita CNM buspirone 5 mg PO BID PRN 30 days cholecalciferol (vitamin D3) 25 mcg PO DAILY 90 days clobetasol 0.05% 1 appl topical BID 2 weeks famotidine 20 mg PO DAILY fluconazole 150 mg PO Q3D 2 doses fluoxetine 20 mg PO DAILY 90 days omeprazole 20 mg PO BID 90 days Is last menstrual period known: Yes Last menstrual period: 01/07/24 HPI HPI vag itch: Details: She is here because she is concerned she has noticed some bumps on her insides of labia minora and also she has had vaginal itching she had gone to the urgent care on [address] in [place] and was given treatment for yeast and BV both and then she had more itching so she returned and was given another course of the fluconazole then when she saw the bumps on the weekend she went to the [facility] emergency room and they did testing and they told her it might be molluscum contagiosum. She does have psoriasis she gets very anxious about what it might be. She does wear panty liners all the time she uses pads for periods though she more a tampon today because she was coming to see me and wanted me to look at bumps and her labia where it is itchy up near her clitoris. She also sleeps with panty liners. She also changed her soap and she uses a perfumed d own there. She is not really worried about STIs she is with her same partner of many years she has not been on control but when I asked her about if she wanted to start it she said yes she would like to she does not want to be now she has a history of PCOS and she gets hirsute is Um though it is not obvious to this provider today. [facility] Medical History PCOS (polycystic ovarian syndrome) Anxiety Depression Dyspepsia Difficulty sleeping Psoriasis Surgical History No pertinent past surgical history Family History Father Bipolar disorder Back problem Mother Asthma Heart problem Maternal Grandfather CVD (cardiovascular disease) Myocardial infarction Paternal Aunt Breast cancer Brother No problems noted. Sister No problems noted. Maternal Aunt Uterine cancer Ovarian cancer Other Mental health disorder Substance use disorder Social History Household Members: Significant Other Both parents involved: Yes Caregiver staying overnight: No Housing: House Are you a primary home care giver to a significant other at home: No Do you presently have visiting nurse or other home services: No 75 years or older and lives alone: No Alcohol intake: never Patient Tobacco Use Status: Former Tobacco user e-Cigarette/Vaping Use: Never Used Substance Use Type: Marijuana Trauma History: denies Agree to transfusion: Yes service: No Current occupational status: employed 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 occupational exposures/hazards: No Cognitive needs: No Hearing needs: No Vision needs: No Female Reproductive History Menstrual Age of Menarche: 11 Duration of menses: 3-5 days Date of last menstrual period: 01/07/24 control method: none Total pregnancies: 1 Physical Exam Vital Signs: Last Vital Signs BP 100/68 01/10/24 09:05 BMI result Body Mass Index 30.5 Other: There is some paleness to the labia minora and clitoral area consistent with chronic panty liner use when she stretches her labia minora out there is evidence of submucosal collections secretions that are not hard and consistent with normal sebum collections. There is no abnormal discharge evidence of scant menses patient has tampon in place cultures taken from the vagina there was no abnormal discharge there is only moisture exposed labia minora the might have yeast. There is nothing that appears to be like molluscum contagiosum. External Female Exam: normal external appearance and normal appearance of the urethra Speculum Exam - Vagina: normal appearance of the vagina and normal vaginal discharge Assessment & Plan Assessment & Plan (1) Yeast infection of the vagina: Code(s): B37.31 - Acute candidiasis of vulva and vagina Category: Medical (2) Alteration in skin integrity due to moisture: Comment: From chronic panty liner use... Code(s): R23.9 - Unspecified skin changes Category: Medical Plan Discussed in general the importance of our skin and mucous membranes to have access to air in order to be healthy and that it is normal for us to have vaginal moisture just as our mouths are meant to be moist as well. Discussed the importance of allowing the moisture to dry naturally and the benefits of wearing looser clothing and especially cotton which allows air to flow more freely. Discussed that when moisture is trapped in an area such as when panty liners are used chronically it is like wearing a wet diaper and it helps proliferate growth of both bacteria and fungus is which can contribute to malodorous discharge and vaginal itching and burning as well as deteriorations of the vaginal mucosal integrity. Care for down there handout given. Discussed checking fabrics of underwear and as much as possible going to either no underwear or cotton underwear night.. Try as much as possible not to use panty liners plain little probably all that is necessary for now I am recommending that she use a little dab of the Monistat cream where it is itchy but she does not need to use a lot Discussed options of a CPA ease she has wants OCPs and requested them she has been on them for and did well with them and has no concerns reviewed warning signs and we will see her in 3 months I did offer testing for STIs via blood work and discuss symptomology of infections but she is not interested at this time she really isn't worried about it. Medications: New desog-e.estradiol/e.estradiol 0.15-0.02 mgx21 /0.01 mg x 5 1 tab PO DAILY 84 tabs 3RF miconazole nitrate 2% (Miconazole-7) 1 appful vaginal BEDTIME 7 days 45 grams 0RF Coding Level of Care Code Est Pt Level 3 (17645) Diagnoses Yeast infection of the vagina B37.31 Alteration in skin integrity due to moisture R23.9
== END 2024-01-10 10:11 | disposition home or self-care (01) ==
PROVIDERS: PCP Internal Medicine; Visit Provider Advanced Practice Midwife
DX: B37.31 Acute candidiasis of vulva and vagina (principal); R23.9 Unspecified skin changes
CPT/HCPCS: 99213

== ENCOUNTER 2024-01-10 08:51 | Outpatient (REF) | payer OTHER, SELFPAY ==
[2024-01-11 11:37] LABS: CT PCR NOT DETECTED (Not Detect.); NG PCR NOT DETECTED (Not Detect.)
[2024-01-11 11:50] LABS: Bacterial Vaginosis PCR NEGATIVE (Negative); Candida Group PCR NOT DETECTED (Not Detect); Candida glab krusei PCR NOT DETECTED (Not Detect); Trichomonas vaginalis PCR NOT DETECTED (Not Detect)
== END 2024-01-10 08:52 | disposition home or self-care (01) ==
LOC: HO.LAB 08:51
PROVIDERS: PCP Internal Medicine; Visit Provider Advanced Practice Midwife
DX: N89.8 Other specified noninflammatory disorders of vagina (principal)
CPT/HCPCS: 0352U; 87491; 87591

== ENCOUNTER 2024-01-18 13:53 | Outpatient (REF) | payer OTHER, SELFPAY | END 2024-01-18 13:54 | disposition home or self-care (01) | LOC: HO.LNP 13:53 | PROVIDERS: PCP Internal Medicine; Visit Provider Advanced Practice Midwife | DX: Z01.419 Encounter for gynecological examination (general) (routine) without abnormal findings (principal) | CPT/HCPCS: 87625; 88175 ==

== ENCOUNTER 2024-01-18 13:53 | Outpatient (AMB) | payer OTHER, SELFPAY ==
--- NOTE | 2024-01-18 14:08 | A.OFFVIS_ITS ---
Vital Signs 01/18/24 14:09 Height 5 ft 3 in Weight 172 lb BMI 30.5 BP 110/70 Intake Visit Reasons: pelvic floor weakness Intake Note: pt feels bulge in vaginal area 01/09/23 after anal intercourse Allergies No Known Allergies Allergy (Verified 01/18/24 14:08) Is last menstrual period known: Yes Last menstrual period: 01/08/24 HPI Comments Details: Patient is here today due to her stress from being told she could possibly have HPV perianal region a year ago. She also feels there was an external bulge is wondering if she has experiencing prolapse. She is upset and weepy she reports she checks at least 3 times a day and is very upsetting to her. She denies any urinary incontinence, vaginal discharge or odor. Recent STD check up-to-date due for her Pap. Delivered a 9 lb plus baby vaginally last year. Annual exam to be incorporated today. She had admits to eating healthy. Denies any family history of ovarian or colon cancer. Family history of breast cancer. Has regular menstrual cycles. Current control pill user has follow up control check in March. [facility] Medical History (Updated 01/18/24 @ 15:43 by Kelsey Ziegler CNM) PCOS (polycystic ovarian syndrome) Anxiety Depression Dyspepsia Difficulty sleeping Psoriasis Surgical History No pertinent past surgical history Family History Father Bipolar disorder Back problem Mother Asthma Heart problem Maternal Grandfather CVD (cardiovascular disease) Myocardial infarction Paternal Aunt Breast cancer Brother No problems noted. Sister No problems noted. Maternal Aunt Uterine cancer Ovarian cancer Other Mental health disorder Substance use disorder Social History Household Members: Significant Other Both parents involved: Yes Caregiver staying overnight: No Housing: House Are you a primary respiratory care technician to a significant other at home: No Do you presently have visiting nurse or other home services: No 75 years or older and lives alone: No Alcohol intake: never Patient Tobacco Use Status: Former Tobacco user e-Cigarette/Vaping Use: Never Used Substance Use Type: Marijuana Trauma History: denies Agree to transfusion: Yes service: No Current occupational status: employed 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 Current occupational exposures/hazards: No Cognitive needs: No Hearing needs: No Vision needs: No Female Reproductive History Menstrual Age of Menarche: 11 Duration of menses: 6-7 days Date of last menstrual period: 01/08/24 control method: pills Review of Systems Const All systems reviewed & are unremarkable except as noted in HPI and below Reports as per HPI Eyes Reports no additional complaints ENT Reports no additional complaints Card Reports no additional complaints Resp Reports no additional complaints GI Reports as per HPI and Reports no additional complaints Reports as per HPI Musc Reports no additional complaints Skin/Breast Reports as per HPI Neuro Reports no additional complaints Psych Reports no additional complaints Endo Reports no additional complaints Karsten/Lymph Reports no additional complaints Aller/Immun Reports no additional complaints Physical Exam Vital Signs: Last Vital Signs BP 110/70 01/18/24 14:09 BMI result Body Mass Index 30.5 Const General: cooperative, healthy appearing, no acute distress, well developed and alert Orientation/consciousness: patient oriented x3 HEENT Head: Yes normal to inspection Eyes General: appearance normal, both eyes and all related structures Neck Neck: Yes normal visual inspection Thyroid: Thyroid normal Chest Chest palpation & inspection: normal inspection of the chest and other (no puckering, dimpling, peau de orange, retraction, discharge, masses) Breast/axilla inspection: normal inspection of the breasts Breast/axilla palpation: normal palpation of the breasts Resp Effort & Inspection: normal respiratory effort GI Inspection: Yes normal to inspection Palpation (GI): Soft to palpation Rectal Exam - Female: deferred Other: No signs of HPV or other lesions on the vulva, mild cystocele noted, no significant prolapse, hymenal remnant tags and small perianal pink mucosal area elevated proximally 2 mm. General: Yes bladder normal to palpation External Female Exam: normal external appearance and normal appearance of the urethra Speculum Exam - Vagina: normal appearance of the vagina, normal palpation and normal vaginal discharge Speculum Exam - Cervix: normal appearance of the cervix and normal palpation Bimanual exam- vagina & uterus: normal bimanual exam, normal palpation, uterine size normal, bladder normal to palpation, normal palpation and non-tender Bimanual Exam- Adnexa, other: no masses Skin General skin exam: no rashes or lesions noted Rashes: no rashes Neuro General: patient oriented x3 Cognition (Neuro): normal cognition Extrem General: Yes normal to inspection Psych Attitude: cooperative Thought process: Normal thought process present Assessment & Plan Assessment & Plan (1) Encounter for well woman exam with routine gynecological exam: Code(s): Z01.419 - Encounter for gynecological examination (general) (routine) without abnormal findings Category: Medical Plan Discussed: Current recommendations for pap smears per ASCCP guidelines. Pap obtained today. Reassured normal exam no concerns other than what were discussed. Skin around the anal area appears to be normal there is a small pink fleshy remnant but does not appear to be HPV lesion it can be a remnant from childbirth, hemorrhoid, normal changes of mucosa. Reviewed normal changes with aging and childbirth including weakness of the pelvic floor which can lead to prolapse. Breast awareness and periodic breast exams. Maintain a healthy lifestyle including a well balanced diet and routine exercise. Offered pelvic floor physical therapy for strengthening, she would like to consider it but not ready to move forward. Keep pill check appointment follow up. Patient verbalizes understanding and agrees to the plan of care. She was given opportunity to ask questions and all questions were answered to the best of my ability. RTO in one year for annual emery grinder examination. This note is constructed using voice recognition software. While every effort has been made to ensure accuracy, control systems developer errors may have been included. Orders: Orders PAP rfx HPV E6/E7 and 16 18/45 Today Z01.419 - Encounter for gynecological examination (general) (routine) without abnormal findings Coding Level of Care Code Est Pt Prev Care 18-39y(51425) Diagnoses Encounter for well woman exam with routine gynecological exam Z01.419
[2024-01-18 14:09] VITALS: BP 110/70; BMI 30.5
== END 2024-01-18 14:59 | disposition home or self-care (01) ==
PROVIDERS: PCP Internal Medicine; Visit Provider Advanced Practice Midwife
DX: Z01.419 Encounter for gynecological examination (general) (routine) without abnormal findings (principal)
CPT/HCPCS: 99395

== ENCOUNTER 2024-01-25 13:17 | Outpatient (AMB) | payer OTHER, SELFPAY ==
--- NOTE | 2024-01-25 13:22 | A.OFFPC_ITS ---
Vital Signs 01/25/24 13:23 Height 5 ft 3 in Weight 172 lb 6 oz BMI 30.5 BP 126/72 Blood Pressure Location Lt brachial Position Sitting Pulse 76 Pulse Source Pulse Oximeter Temp 98.2 F Temp Source Oral Pulse Oximetry (%) 96 Oxygen Delivery Method Room Air Intake Visit Reasons: Sciatic pain - right leg and hip Allergies No Known Allergies Allergy (Verified 01/25/24 13:32) Medication List - Last Reconciled 01/25/24 by Kenny Shin MD buspirone 5 mg PO BID PRN 30 days cholecalciferol (vitamin D3) 25 mcg PO DAILY 90 days clobetasol 0.05% 1 appl topical BID 2 weeks desog-e.estradiol/e.estradiol 0.15-0.02 mgx21 /0.01 mg x 5 1 tab PO DAILY famotidine 20 mg PO DAILY fluoxetine 20 mg PO DAILY 90 days omeprazole 20 mg PO BID 90 days Tobacco use date assessed: 01/25/24 Dental Screening Dental Screen Date: 01/25/24 Did you have a dental visit in the last 12 months?: Yes Did you have a dental problem in the last 6 months where you did not have access to dental care?: No Was dental information given to patient?: Patient has dentist HPI Sciatic pain - right leg and hip HPI Details Patient is 28-year-old female suffers from anxiety disorder She was prescribed fluoxetine last visit which she never started Continued to feel anxious however tells me that she does not like to take medication Came in today to talk about lower back pain radiating to left leg She also tells me that sometimes she feels spasm and twinges in pelvic area She was seen by her OBGYN they did examination and Pap smear and everything came back within normal limit as per patient She used to smoke marijuana more than twice a day and has stopped smoking in the past 3 weeks At night she is having lower back pain mostly radiating to left leg and sometimes with spasm in her pelvic area I am prescribing gabapentin 100 mg to start taking at night I would prefer for her to start fluoxetine as well. She is deficient in vitamin-D, supplement sent We will set up telemedicine visit in 3 weeks to follow-up [facility] Medical History PCOS (polycystic ovarian syndrome) Anxiety Depression Dyspepsia Difficulty sleeping Psoriasis Surgical History No pertinent past surgical history Family History Father Bipolar disorder Back problem Mother Asthma Heart problem Maternal Grandfather CVD (cardiovascular disease) Myocardial infarction Paternal Aunt Breast cancer Brother No problems noted. Sister No problems noted. Maternal Aunt Uterine cancer Ovarian cancer Other Mental health disorder Substance use disorder Social History Household Members: Significant Other Both parents involved: Yes Caregiver staying overnight: No Housing: House Are you a primary pharmacy care coordinator to a significant other at home: No Do you presently have visiting nurse or other home services: No 75 years or older and lives alone: No Alcohol intake: never Patient Tobacco Use Status: Former Tobacco user e-Cigarette/Vaping Use: Never Used Substance Use Type: Marijuana Trauma History: denies Agree to transfusion: Yes service: No Current occupational status: employed 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/hazards: No Cognitive needs: No Hearing needs: No Vision needs: No Female Reproductive History Menstrual Age of Menarche: 11 Questionnaire Thrive Questionnaire Date Thrive assessed: 01/25/24 I am a: Patient What is your living situation today?: I choose not to answer this question Within the past 12 months, did the food you bought not last and you didn't have the money to get more?: I choose not to answer this question Within the past 12 months, did you worry whether your food would run out before you got money to buy more?: I choose not to answer this question Do you have trouble paying for medicines?: I choose not to answer this question Do you have trouble getting transportation to medical appointments?: I choose not to answer this question Do you have trouble paying your heating and electricity bill?: I choose not to answer this question Do you have trouble taking care of your child, family member or friend?: I choose not to answer this question Do you have trouble with day-to-day activities such as bathing, preparing meals, shopping, managing finances, etc.?: I choose not to answer this question Are you currently unemployed and looking for a job?: I choose not to answer this question Are you interested in more education?: I choose not to answer this question Please select the resources that you would like help with: None Currently or been in a relationship where the following occur: I choose not to answer THRIVE Score: 0 AUDIT C Alcohol Use Questionnaire (AUDIT-C) 1. How often do you have a drink containing alcohol?: Never 3. How often do you have six or more drinks on one occasion?: Never Total Score: 0 Score Reviewed/Action Taken: Yes LUCIE-7 AMB Questionnaire LUCIE-7 Date LUCIE - 7 assessed: 11/17/23 Source: Developed by Drs. Morales Gutierres, Connie Goldman, Tadeo Wilson and colleagues, with an educational albert from [employer]. Review of Systems Const Denies chills and Denies fever(s) ENT Denies epistaxis and Denies nasal discharge Card Denies chest pain Resp Denies chest congestion, Denies cough and Denies hemoptysis GI Denies diarrhea and Denies nausea Skin/Breast Denies rash Neuro Reports no additional complaints Psych Reports no additional complaints Endo Reports no additional complaints Physical exam (Primary Care) Vital Signs: Last Vital Signs Temp 98.2 F 01/25/24 13:23 Pulse 76 01/25/24 13:23 BP 126/72 01/25/24 13:23 Pulse Ox 96 01/25/24 13:23 Oxygen Delivery Method Room Air 01/25/24 13:23 BMI result Body Mass Index 30.5 Tobacco/Smoking Status: Tobacco use Status Tobacco use date assessed 01/25/24 01/25/24 13:32 Patient Tobacco Use Status Former Tobacco user 01/25/24 13:32 Tobacco use type 01/18/24 14:57 e-Cigarette/Vaping Use Never Used 01/25/24 13:32 Thrive Assessment: Date of Thrive Assessment Date Thrive assessed 01/25/24 01/25/24 13:32 Currently or been in a relationship where the following occur: I choose not to answer Const General: cooperative, comfortable and no acute distress Orientation/consciousness: patient oriented x3 HENMT Head: Yes normocephalic Eyes General: appearance normal, both eyes and all related structures Neck Neck: Yes supple Resp Effort & Inspection: normal respiratory effort, no cough and no stridor Cardio Rhythm: regular rhythm Heart sounds: S1 normal heart sound present and S2 normal heart sound present Back/Spine/Pelvis Other: Spine nontender to percussion, straight leg negative bilateral Skin General skin exam: turgor normal Neuro General: patient oriented x3, tone normal and moves all extremities Extrem Right lower extremity: no edema Left lower extremity: no edema Coding Level of Care Code Est Pt Level 4 (16648) Diagnoses Left lumbar radiculitis M54.16 Anxiety, generalized F41.1 Vitamin D deficiency E55.9 Severe episode of recurrent major depressive disorder, without psychotic features F33.2 Psychotic features: without psychotic features Compulsive disorder F42.9 Muscle spasm M62.838 Assessment & Plan Assessment & Plan (1) Left lumbar radiculitis: Code(s): M54.16 - Radiculopathy, lumbar region Category: Medical (2) Anxiety, generalized: Code(s): F41.1 - Generalized anxiety disorder Category: Medical (3) Vitamin D deficiency: Code(s): E55.9 - Vitamin D deficiency, unspecified Category: Medical (4) Depression, major, severe recurrence: Code(s): F33.2 - Major depressive disorder, recurrent severe without psychotic features Category: Medical Qualifiers: Psychotic features: without psychotic features Qualified Code(s): F33.2 - Major depressive disorder, recurrent severe without psychotic features (5) Compulsive disorder: Code(s): F42.9 - Obsessive-compulsive disorder, unspecified Category: Medical (6) Muscle spasm: Code(s): M62.838 - Other muscle spasm Category: Medical Plan Patient is 28-year-old female suffers from anxiety disorder She was prescribed fluoxetine last visit which she never started Continued to feel anxious however tells me that she does not like to take medication Came in today to talk about lower back pain radiating to left leg She also tells me that sometimes she feels spasm and twinges in pelvic area She was seen by her OBGYN they did examination and Pap smear and everything came back within normal limit as per patient She used to smoke marijuana more than twice a day and has stopped smoking in the past 3 weeks At night she is having lower back pain mostly radiating to left leg and sometimes with spasm in her pelvic area I am prescribing gabapentin 100 mg to start taking at night I would prefer for her to start fluoxetine as well. She is deficient in vitamin-D, supplement sent We will set up telemedicine visit in 3 weeks to follow-up Medications: New gabapentin 100 mg PO BEDTIME 30 caps 0RF gabapentin 100 mg PO BEDTIME 30 caps 0RF Refilled fluoxetine 20 mg PO DAILY 90 days 90 caps 0RF
[2024-01-25 13:23] VITALS: BP 126/72; PULSE 76; TEMP 36.8; O2SAT 96; BMI 30.5
== END 2024-01-25 14:11 | disposition home or self-care (01) ==
PROVIDERS: PCP Internal Medicine; Visit Provider Internal Medicine
DX: M54.16 Radiculopathy, lumbar region (principal); F41.1 Generalized anxiety disorder; E55.9 Vitamin D deficiency, unspecified; F33.2 Major depressive disorder, recurrent severe without psychotic features; F42.9 Obsessive-compulsive disorder, unspecified; M62.838 Other muscle spasm

== ENCOUNTER → 2024-01-25 13:17 | Outpatient (BNVA) | payer OTHER, SELFPAY | PROVIDERS: PCP Internal Medicine; Visit Provider Internal Medicine ==

== ENCOUNTER 2024-02-03 14:08 | Outpatient (AMB) | payer OTHER, SELFPAY ==
--- NOTE | 2024-02-03 14:12 | MHC.OFFWIV ---
Intake Vital Signs 02/03/24 14:15 Height 5 ft 3 in Weight 169 lb BMI 29.9 BP 120/78 Blood Pressure Location Rt brachial Position Sitting Pulse 96 Pulse Source Pulse Oximeter Pulse Oximetry (%) 97 Oxygen Delivery Method Room Air Intake Visit Reasons: EP swollen RT tonsils Intake Note: Patient here for swollen right tonsils that has been present for about 1 week. Patient Tobacco Use Status: Former Tobacco user Allergies No Known Allergies Allergy (Verified 02/03/24 14:17) Do you need a note to return to daycare/school/sports/work: No HPI HPI Comments History of Present Illness Details Patient is a 28-year-old female complaining of swollen lymph nodes on the right side of her neck for the last week and swollen tonsils for the last week. She tells me about 2 weeks ago she was having some tooth pain so she went to the dentist. The dentist told her she saw some white patches in the back of her throat but she also had a tooth infection so she was given amoxicillin which she took and finished taking 4 days ago. She states her tooth pain has gotten better but she still has the swollen tonsils and the swollen lymph node on the right side of her neck. She denies any cough, fevers, head congestion, sinus pain ear pain. 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 [facility] Medical History PCOS (polycystic ovarian syndrome) Anxiety Depression Dyspepsia Difficulty sleeping Psoriasis Surgical History No pertinent past surgical history Family History Father Bipolar disorder Back problem Mother Asthma Heart problem Maternal Grandfather CVD (cardiovascular disease) Myocardial infarction Paternal Aunt Breast cancer Brother No problems noted. Sister No problems noted. Maternal Aunt Uterine cancer Ovarian cancer Other Mental health disorder Substance use disorder Social History Household Members: Significant Other Both parents involved: Yes Caregiver staying overnight: No Housing: House Are you a primary director of primary care to a significant other at home: No Do you presently have visiting nurse or other home services: No 75 years or older and lives alone: No Alcohol intake: never Patient Tobacco Use Status: Former Tobacco user e-Cigarette/Vaping Use: Never Used Substance Use Type: Marijuana Trauma History: denies Agree to transfusion: Yes service: No Current occupational status: employed 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/hazards: No Cognitive needs: No Hearing needs: No Vision needs: No Female Reproductive History Menstrual Age of Menarche: 11 Review of Systems Const All systems reviewed & are unremarkable except as noted in HPI and below Physical Exam Vital Signs: Last Vital Signs Pulse 96 02/03/24 14:15 BP 120/78 02/03/24 14:15 Pulse Ox 97 02/03/24 14:15 Oxygen Delivery Method Room Air 02/03/24 14:15 BMI result Body Mass Index 29.9 Const General: cooperative, healthy appearing, comfortable and no acute distress Orientation/consciousness: patient oriented x3 Limitations: no limitations HEENT Head: Yes normal to inspection Ears: hearing grossly normal bilaterally and external ears normal General nose exam: Normal external nose present, Normal nares present and No nasal discharge present Face and sinus: Yes normal facial exam Mouth: Normal oral and palatal mucosa present and moist mucous membranes Throat: Yes tonsils normal, Yes uvula midline and Yes posterior oropharynx abnormal (Erythema) Eyes General: appearance normal, both eyes and all related structures Neck Neck: Yes normal visual inspection and Yes lymphadenopathy (Right side submandibular) Resp Effort & Inspection: normal respiratory effort, able to speak in complete sentences, no respiratory distress, not tachypneic, no tripod positioning and no use of accessory muscles Skin General skin exam: no rashes or lesions noted Neuro General: patient oriented x3 Extrem General: Yes normal to inspection and Yes no clubbing, cyanosis or edema Assessment & Plan Assessment & Plan (1) Swelling, lymph nodes: Comment: right side submandibular Code(s): R59.9 - Enlarged lymph nodes, unspecified Plan: Rapid strep in office is negative, we will send culture to be positive but as patient just finished a prescription of amoxicillin, if she did have strep, it is likely been treated properly and the swelling in her lymph node should come down over the next 1-2 weeks. Recommended she monitor it and follow up with her PCP if the swelling does not go away. Plan See above Coding Level of Care Code Est Pt Level 3 (41362) Diagnoses Swelling, lymph nodes R59.9
[2024-02-03 14:15] VITALS: BP 120/78; PULSE 96; O2SAT 97; BMI 29.9
== END 2024-02-03 15:06 | disposition home or self-care (01) ==
PROVIDERS: PCP Internal Medicine; Visit Provider Physician Assistant
DX: R59.9 Enlarged lymph nodes, unspecified (principal); Z13.9 Encounter for screening, unspecified

== ENCOUNTER 2024-02-17 08:20 | Outpatient (AMB) | payer OTHER, SELFPAY ==
--- NOTE | 2024-02-17 08:21 | A.OFFPC_ITS ---
Intake Visit Reasons: TV 3 week follow up Allergies No Known Allergies Allergy (Verified 02/17/24 08:22) Medication List - Last Reconciled 02/17/24 by Kenny Shin MD buspirone 5 mg PO BID PRN 30 days cholecalciferol (vitamin D3) 25 mcg PO DAILY 90 days clobetasol 0.05% 1 appl topical BID 2 weeks desog-e.estradiol/e.estradiol 0.15-0.02 mgx21 /0.01 mg x 5 1 tab PO DAILY famotidine 20 mg PO DAILY fluoxetine 20 mg PO DAILY 90 days gabapentin 100 mg PO BEDTIME omeprazole 20 mg PO BID 90 days Tobacco use date assessed: 02/17/24 Dental Screening Dental Screen Date: 02/17/24 Did you have a dental visit in the last 12 months?: Yes Did you have a dental problem in the last 6 months where you did not have access to dental care?: No Was dental information given to patient?: Patient has dentist HPI TV 3 week follow up HPI Details taking gabapenin as needed only , along with Tylenol or ibuprofen which is helping with back pain having problem with wisdom tooth, working with dentist to have that removed was seen in walk in clinic few days back for enlarged gland in neck , which has gotten better since refill on gabapentin sent , it is helping with anxiety as well PFSH Medical History PCOS (polycystic ovarian syndrome) Anxiety Depression Dyspepsia Difficulty sleeping Psoriasis Surgical History No pertinent past surgical history Family History Father Bipolar disorder Back problem Mother Asthma Heart problem Maternal Grandfather CVD (cardiovascular disease) Myocardial infarction Paternal Aunt Breast cancer Brother No problems noted. Sister No problems noted. Maternal Aunt Uterine cancer Ovarian cancer Other Mental health disorder Substance use disorder Social History Household Members: Significant Other Both parents involved: Yes Caregiver staying overnight: No Housing: House Are you a primary rehab care assistant to a significant other at home: No Do you presently have visiting nurse or other home services: No 75 years or older and lives alone: No Alcohol intake: never Patient Tobacco Use Status: Former Tobacco user e-Cigarette/Vaping Use: Never Used Substance Use Type: Marijuana Trauma History: denies Agree to transfusion: Yes service: No Current occupational status: employed 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 How often do you have a drink containing alcohol?: Never 3. How often do you have six or more drinks on one occasion?: Never Total Score: 0 Score Reviewed/Action Taken: Yes LUCIE-7 AMB Questionnaire LUCIE-7 Date LUCIE - 7 assessed: 11/17/23 Source: Developed by Drs. Morales Gutierres, Connie Goldman, Tadeo Wilson and colleagues, with an educational albert from [employer] Review of Systems Const Denies chills and Denies fever(s) ENT Denies epistaxis and Denies nasal discharge Card Denies chest pain Resp Denies chest congestion, Denies cough and Denies hemoptysis GI Denies diarrhea and Denies nausea Skin/Breast Denies rash Neuro Reports no additional complaints Psych Reports no additional complaints Endo Reports no additional complaints Physical exam (Primary Care) Tobacco/Smoking Status: Tobacco use Status Tobacco use date assessed 02/17/24 02/17/24 08:22 Patient Tobacco Use Status Former Tobacco user 02/17/24 08:22 Tobacco use type 01/18/24 14:57 e-Cigarette/Vaping Use Never Used 02/17/24 08:22 Thrive Assessment: Date of Thrive Assessment Date Thrive assessed 01/25/24 02/17/24 08:22 Telehealth Telehealth Telehealth Platform: [facility] Location of provider rendering services: practice address Location of patient: address on file Patient Identification confirmed using: Name, : Yes Telehealth method: video Patient verbally consented to treatment: Yes Patient verbally consented to billing insurance company: Yes Patient informed of any privacy concerns related to visit: Yes Minutes spent on Phone/Video with Pt.: 13 Coding Level of Care Code Tele Est Pt Level 3 (78473) Diagnoses Left lumbar radiculitis M54.16 Swelling, lymph nodes R59.9 Anxiety, generalized F41.1 Assessment & Plan Assessment & Plan (1) Left lumbar radiculitis: Code(s): M54.16 - Radiculopathy, lumbar region Category: Medical (2) Swelling, lymph nodes: Comment: right side submandibular Code(s): R59.9 - Enlarged lymph nodes, unspecified Category: Medical (3) Anxiety, generalized: Code(s): F41.1 - Generalized anxiety disorder Category: Medical Plan taking gabapenin as needed only , along with Tylenol or ibuprofen which is helping with back pain having problem with wisdom tooth, working with dentist to have that removed was seen in walk in clinic few days back for enlarged gland in neck , which has gotten better since refill on gabapentin sent , it is helping with anxiety as well Medications: Refilled gabapentin 100 mg PO BEDTIME 90 caps 0RF
== END 2024-02-17 09:43 | disposition home or self-care (01) ==
LOC: HO.HMCC 08:20
PROVIDERS: PCP Internal Medicine; Visit Provider Internal Medicine
DX: M54.16 Radiculopathy, lumbar region (principal); R59.9 Enlarged lymph nodes, unspecified; F41.1 Generalized anxiety disorder

== ENCOUNTER → 2024-02-17 08:20 | Outpatient (BNVA) | payer OTHER, SELFPAY | PROVIDERS: PCP Internal Medicine; Visit Provider Internal Medicine ==

== ENCOUNTER 2024-02-25 07:38 | Outpatient (AMB) | payer OTHER, SELFPAY ==
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
[2024-02-25 07:50] VITALS: BP 110/70
== END 2024-02-25 08:52 | disposition home or self-care (01) ==
LOC: HO.HWS 07:38
PROVIDERS: PCP Internal Medicine; Visit Provider Advanced Practice Midwife
DX: N90.89 Other specified noninflammatory disorders of vulva and perineum (principal); F41.9 Anxiety disorder, unspecified
CPT/HCPCS: 99213

== ENCOUNTER 2024-02-25 07:38 | Outpatient (REF) | payer OTHER, SELFPAY ==
[2024-02-25 17:57] LABS: Bacterial Vaginosis PCR POSITIVE (Negative); Candida Group PCR NOT DETECTED (Not Detect); Candida glab krusei PCR NOT DETECTED (Not Detect); Trichomonas vaginalis PCR NOT DETECTED (Not Detect)
== END 2024-02-25 07:39 | disposition home or self-care (01) ==
LOC: HO.LAB 07:38
PROVIDERS: PCP Internal Medicine; Visit Provider Advanced Practice Midwife
DX: N89.8 Other specified noninflammatory disorders of vagina (principal)
CPT/HCPCS: 0352U

== ENCOUNTER 2024-03-02 08:15 | Outpatient (AMB) | payer OTHER, SELFPAY ==
--- NOTE | 2024-03-02 08:21 | MHC.PC.OV ---
Intake Visit Reasons: Discuss headaches Allergies No Known Allergies Allergy (Verified 03/02/24 08:22) Medication List - Last Reconciled 03/02/24 by Kenny Shin MD buspirone 5 mg PO BID PRN 30 days cholecalciferol (vitamin D3) 25 mcg PO DAILY 90 days clobetasol 0.05% 1 appl topical BID 2 weeks desog-e.estradiol/e.estradiol 0.15-0.02 mgx21 /0.01 mg x 5 1 tab PO DAILY famotidine 20 mg PO DAILY fluoxetine 20 mg PO DAILY 90 days gabapentin 100 mg PO BEDTIME omeprazole 20 mg PO BID 90 days Tobacco use date assessed: 03/02/24 Dental Screening Dental Screen Date: 03/02/24 Did you have a dental visit in the last 12 months?: Yes Did you have a dental problem in the last 6 months where you did not have access to dental care?: No Was dental information given to patient?: Patient has dentist HPI Discuss headaches HPI Details Patient has been having pressure like feeling in head which is worse some days than others and also move around 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 feels like burning sensation in eyes at night there are no neurological deficit in body I am placing ref to Opthalmology and Neuro she is to start small dose amitriptyline 10 ng at night she will get back to me in couple of weeks to update me [facility] Medical History PCOS (polycystic ovarian syndrome) Anxiety Depression Dyspepsia Difficulty sleeping Psoriasis Surgical History No pertinent past surgical history Family History Father Bipolar disorder Back problem Mother Asthma Heart problem Maternal Grandfather CVD (cardiovascular disease) Myocardial infarction Paternal Aunt Breast cancer Brother No problems noted. Sister No problems noted. Maternal Aunt Uterine cancer Ovarian cancer Other Mental health disorder Substance use disorder Social History Household Members: Significant Other Both parents involved: Yes Caregiver staying overnight: No Housing: House Are you a primary child day care center worker to a significant other at home: No Do you presently have visiting nurse or other home services: No 75 years or older and lives alone: No Alcohol intake: never Patient Tobacco Use Status: Former Tobacco user e-Cigarette/Vaping Use: Never Used Substance Use Type: Marijuana Trauma History: denies Agree to transfusion: Yes service: No Current occupational status: employed 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 How often do you have a drink containing alcohol?: Never 3. How often do you have six or more drinks on one occasion?: Never Total Score: 0 Score Reviewed/Action Taken: Yes LUCIE-7 AMB Questionnaire LUCIE-7 Date LUCIE - 7 assessed: 11/17/23 Source: Developed by Drs. Morales Gutierres, Connie Goldman, Tadeo Wilson and colleagues, with an educational albert from [employer]. Review of Systems Const All systems reviewed & are unremarkable except as noted in HPI and below Physical exam (Primary Care) Tobacco/Smoking Status: Tobacco use Status Tobacco use date assessed 03/02/24 03/02/24 08:23 Patient Tobacco Use Status Former Tobacco user 03/02/24 08:23 Tobacco use type 01/18/24 14:57 e-Cigarette/Vaping Use Never Used 03/02/24 08:23 Thrive Assessment: Date of Thrive Assessment Date Thrive assessed 01/25/24 03/02/24 08:23 Telehealth Telehealth Telehealth Platform: [facility] Location of provider rendering services: practice address Location of patient: address on file Patient Identification confirmed using: Name, : Yes Telehealth method: voice only Patient verbally consented to treatment: Yes Patient verbally consented to billing insurance company: Yes Patient informed of any privacy concerns related to visit: Yes Minutes spent on Phone/Video with Pt.: 14 Coding Level of Care Code Tele Est Pt Level 3 (08788) Diagnoses Headache syndrome G44.89 Blurring of vision H53.8 Assessment & Plan Assessment & Plan (1) Headache syndrome: Code(s): G44.89 - Other headache syndrome Category: Medical (2) Blurring of vision: Code(s): H53.8 - Other visual disturbances Category: Medical Plan Patient has been having pressure like feeling in head which is worse some days than others and also move around 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
== END 2024-03-02 15:46 | disposition home or self-care (01) ==
LOC: HO.HMCC 08:15
PROVIDERS: PCP Internal Medicine; Visit Provider Internal Medicine
DX: G44.89 Other headache syndrome (principal); H53.8 Other visual disturbances

== ENCOUNTER 2024-03-20 12:49 | Outpatient (REF) | payer OTHER, SELFPAY ==
[2024-03-20 16:19] LABS: Folate 11.4 ng/mL (> or = 4.0); Vitamin B12 663 pg/mL (200-900)
[2024-03-21 14:54] LABS: Transglutaminase Ab IgG <1.0 U/mL; Transglutaminase IgA <1.0 U/mL
[2024-03-25 13:23] LABS: Vitamin D 25-OH, D2 <4 ng/mL; Vitamin D 25-OH, D3 28 ng/mL; Vitamin D 25-OH, Total 28 ng/mL (30-100)
== END 2024-03-20 12:50 | disposition home or self-care (01) ==
LOC: HO.LAB 12:49
PROVIDERS: PCP Internal Medicine; Visit Provider Nurse Practitioner Family
DX: R10.9 Unspecified abdominal pain (principal); E55.9 Vitamin D deficiency, unspecified; R19.7 Diarrhea, unspecified; R14.0 Abdominal distension (gaseous); R10.13 Epigastric pain
CPT/HCPCS: 36415; 82306; 82607; 82746; 86364

== ENCOUNTER 2024-03-20 12:49 | Outpatient (AMB) | payer OTHER, SELFPAY ==
--- NOTE | 2024-03-20 12:57 | A.OFFVIS_ITS ---
Vital Signs 03/20/24 12:58 Height 5 ft 3 in Weight 171 lb 15.369 oz BMI 30.5 BP 105/59 L Blood Pressure Location Lt brachial Position Sitting Pulse 82 Intake Visit Reasons: Generalized abdominal pain Intake Note: Marisol presents in the office as a new patient for abdominal pains. CC: She states that she is usually constipation but had a BM today and abdominal pains have been okay recently. She states that she has a lot of burps and flatulence - she does get a burning sensation in the epigastric region. If she eats what she is not supposed to she states she will have reflux bad and she used be scared she had a ulcer. She stopped smoking marijuana 3 months ago. Fruit Dryer Required: No Allergies No Known Allergies Allergy (Verified 03/20/24 12:58) HPI HPI Generalized abdominal pain: Details: 28-year-old female with past medical history of headaches, OCD, anemia, UTI, depression, anxiety, psoriasis, insomnia, hirsutism is here today for initial consultation. Patient was sent to us by her PCP. Patient reports that in the past few months she has been having increased epigastric pain, postprandial abdominal bloating and abdominal pain and cramping throughout the whole abdomen. Patient reports that she is moving her bowels well. Currently she is taking omeprazole twice a day. Patient reports that her symptoms of acid reflux have suppressed, however she still complains of epigastric pain postprandially and severe burning. Patient does admit that she did not change much in her diet. Tries to eat better, however she continues to occasionally have fast food. Patient denies any melena, hematochezia, unintentional weight loss or ribbon like stools. [facility] Medical History PCOS (polycystic ovarian syndrome) Anxiety Depression Dyspepsia Difficulty sleeping Psoriasis Surgical History No pertinent past surgical history Family History Father Bipolar disorder Back problem Mother Asthma Heart problem Maternal Grandfather CVD (cardiovascular disease) Myocardial infarction Paternal Aunt Breast cancer Brother No problems noted. Sister No problems noted. Maternal Aunt Uterine cancer Ovarian cancer Other Mental health disorder Substance use disorder Social History Household Members: Significant Other Both parents involved: Yes Caregiver staying overnight: No Housing: House Are you a primary certified social workers in health care to a significant other at home: No Do you presently have visiting nurse or other home services: No 75 years or older and lives alone: No Alcohol intake: never Patient Tobacco Use Status: Former Tobacco user e-Cigarette/Vaping Use: Never Used Substance Use Type: Marijuana Trauma History: denies Agree to transfusion: Yes service: No Current occupational status: employed 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/hazards: No Cognitive needs: No Hearing needs: No Vision needs: No Female Reproductive History Menstrual Age of Menarche: 11 Review of Systems Const Denies weight gain and Denies weight loss ENT Reports no additional complaints, Denies dysphagia and Denies odynophagia Card Reports no additional complaints Resp Reports no additional complaints GI Reports abdominal pain (Epigastric), Denies belching, Denies melena, Reports bloating, Denies change in bowel habits, Reports constipation, Denies dysphagia, Denies excessive flatus, Denies dyspepsia, Reports heartburn, Denies diarrhea, Denies loose stools, Denies nausea, Denies odynophagia and Denies vomiting Reports no additional complaints Musc Reports no additional complaints Neuro Reports no additional complaints Psych Reports no additional complaints Endo Reports no additional complaints Physical Exam Vital Signs: Last Vital Signs Pulse 82 03/20/24 12:58 BP 105/59 L 03/20/24 12:58 BMI result Body Mass Index 30.5 Const General: healthy appearing, no acute distress and well developed Nutritional Appearance: well nourished and obese Orientation/consciousness: patient oriented x3 Resp Effort & Inspection: normal respiratory effort, able to speak in complete sentences, no tracheal deviation and symmetric chest movement Auscultation: clear to auscultation bilaterally Cardio Rate: regular rate GI Inspection: Yes normal to inspection, No distended and Yes obesity Palpation (GI): Soft to palpation, not firm, nontender and No hepatosplenomegaly present Auscultation: normal bowel sounds General: Yes no CVA tenderness Back/Spine/Pelvis Back: no CVA tenderness Skin General skin exam: elasticity normal, turgor normal and dry skin Neuro General: patient oriented x3 Psych Appearance: grossly normal Mental Status: mental status grossly normal Assessment & Plan Assessment & Plan (1) Bloating: Code(s): R14.0 - Abdominal distension (gaseous) Category: Medical (2) Postprandial epigastric pain: Code(s): R10.13 - Epigastric pain (3) GERD (gastroesophageal reflux disease): Code(s): K21.9 - Gastro-esophageal reflux disease without esophagitis Qualifiers: Esophagitis presence: esophagitis presence not specified Qualified C ode(s): K21.9 - Gastro-esophageal reflux disease without esophagitis (4) Dyspepsia: Code(s): R10.13 - Epigastric pain Category: Medical (5) Abdominal pain: Code(s): R10.9 - Unspecified abdominal pain Plan Will rule out celiac, H pylori, patient will take famotidine and will return for H pylori testing. Will send her for upper GI series with barium swallow to evaluate reflux. She does not have any trouble swallowing at this time. Will send her for endoscopy, message sent to surgical schedulers to book that. She will return in 2 months to be re-evaluated. Patient can resume taking omeprazole after her test. Test was scheduled for the 04 of April with RN. Patient was encouraged to avoid dietary triggers and late night snacking. Staying upright for minimum 3 hours after meals discussed with patient. Patient is agreeable to current plan of care and verbalizes understanding of instructions. She was given the opportunity to ask questions and all questions answered. Thank you for allowing me to participate in her care Orders: Orders Transglutaminase IgA 03/20/24 R10.9 - Unspecified abdominal pain Vitamin B12 and Folate 03/20/24 R19.7 - Diarrhea, unspecified Vitamin D 25-OH (D2 and D3) 03/20/24 E55.9 - Vitamin D deficiency, unspecified [place] upper GI w Ba Swallow 03/20/24 K21.9 - Gastro-esophageal reflux disease without esophagitis H Pylori Breath Test 03/20/24 K21.9 - Gastro-esophageal reflux disease without esophagitis Transglutaminase Ab IgG 03/20/24 R10.9 - Unspecified abdominal pain Medications: Refilled famotidine 20 mg PO DAILY 90 tabs 0RF Stomach pain Coding Level of Care Code New Pt Level 4 (20305) Diagnoses Bloating R14.0 Postprandial epigastric pain R10.13 Gastroesophageal reflux disease, unspecified whether esophagitis present K21.9 Esophagitis presence: esophagitis presence not specified Dyspepsia R10.13 Abdominal pain R10.9 Time Spent (min) 45 Comment 30 minutes spent with patient and additional 15 minutes spent reviewing her records
[2024-03-20 12:58] VITALS: BP 105/59; PULSE 82; BMI 30.5
== END 2024-03-20 13:42 | disposition home or self-care (01) ==
PROVIDERS: PCP Internal Medicine; Visit Provider Nurse Practitioner Family
DX: R14.0 Abdominal distension (gaseous) (principal); R10.13 Epigastric pain; K21.9 Gastro-esophageal reflux disease without esophagitis; R10.9 Unspecified abdominal pain
CPT/HCPCS: 99204

== ENCOUNTER 2024-04-04 08:18 | Outpatient (AMB) | payer OTHER, SELFPAY ==
--- NOTE | 2024-04-04 08:24 | AM.OFFVISNUR ---
Intake Visit Reasons: H Pylori BT Allergies No Known Allergies Allergy (Verified 03/20/24 12:58) Nursing Note Patient presents for collection of H Pylori breath test. Patient has been fasting for 1 hour (nothing to eat, drink, no chewing gum or smoking) has not taken any antacid medication for at least 2 weeks and has no allergies to artificial sweeteners.?? Assessment & Plan Assessment & Plan (1) Generalized abdominal pain: Code(s): R10.84 - Generalized abdominal pain Category: Medical Plan Patient presents for collection of H Pylori breath test. Patient has been fasting for 1 hour (nothing to eat, drink, no chewing gum or smoking) has not taken any antacid medication for at least 2 weeks and has no allergies to artificial sweeteners.???This test checks for an overgrowth of bacteria in your stomach. We all have bacteria but some may have more than others. It is treatable. if the test comes back negative there is nothing else to do. If the test result is positive we will treat you with 2 antibiotics and a medication to decrease the acid in your stomach (PPI) for 2 weeks. Two weeks after you have completed the treatment we will retest you to make sure the overgrowth has resolved. Patient Instructions: Process for specimen collection and reason for testing was explained to the patient. Specimen collection. Patient instructed to take a deep breath and then exhale into the blue bag, filling it up as much as possible. Patient instructed to drink a mixture of water and the artificial sweetener with a straw. A 15 minute wait period was observed. Patient instructed to take a deep breath and then exhale into the pink bag, filling it up as much as possible.?
== END 2024-04-04 08:41 | disposition home or self-care (01) ==
PROVIDERS: PCP Internal Medicine; Visit Provider Nurse Practitioner Family
DX: R10.84 Generalized abdominal pain (principal)

== ENCOUNTER 2024-04-04 08:18 | Outpatient (REF) | payer OTHER, SELFPAY ==
[2024-04-04 15:20] LABS: H Pylori Breath Test Positive (Negative)
== END 2024-04-04 08:19 | disposition home or self-care (01) ==
LOC: HO.LNP 08:18
PROVIDERS: PCP Internal Medicine; Visit Provider Nurse Practitioner Family
DX: K21.9 Gastro-esophageal reflux disease without esophagitis (principal)
CPT/HCPCS: 83013; 99211

== ENCOUNTER 2024-04-27 07:48 | Outpatient (REF) | payer OTHER, SELFPAY ==
--- NOTE | ~2024-04-27 | FL_ITS ---
EXAMINATION: XR FLUOROSCOPY UPPER GI WITH AIR CLINICAL INFORMATION: Reflux. COMPARISON: None TECHNIQUE: Fluoroscopic air contrast upper GI examination was performed utilizing standard techniques with thin and thick barium and effervescent granules. Numerous spot images were obtained. FINDINGS: Dual and single contrast images of the esophagus demonstrate normal caliber, contour, and mucosal pattern. No evidence of stricture, mass, or ulcerations identified. Esophageal peristalsis was normal. No evidence of hiatus hernia identified. No significant gastroesophageal reflux was seen during the course of the examination and on reflux views. Dual contrast and single contrast images of the stomach demonstrated a normal contour. The gastric rugal folds have a thickened appearance, suggestive of gastritis. There are multiple small foci of contrast pooling in the body and fundus of the stomach that may represent small mucosal erosions. No masses are seen. Contrast freely passed into the gastric antrum and duodenal bulb without delay. Single and air-contrast images of the duodenal bulb demonstrate no abnormality. The duodenal sweep has a normal appearance, course, and mucosal fold appearance. The imaged proximal jejunum has a normal fold pattern and caliber. FLUOROSCOPY TIME: 3 minutes 33 seconds Number of Spot Images: 8 Number of Cine: 11 DOSE AREA PRODUCT: 2271 uGy-m2 (microgray-meter squared) FL/FL upper GI w Ba Swallow IMPRESSION: 1. Thickened appearance the gastric rugal folds. In addition there are multiple small foci of contrast pooling in the body and fundus of the stomach. These findings are suggestive of erosive gastritis. Recommend correlation with EGD. This procedure was performed by Claude Francois PA-C, and supervised by Dr. Darden. Electronically signed by: Aj Darden MD 04/27/2024 03:09 PM [facility]
== END 2024-04-27 07:49 | disposition home or self-care (01) ==
LOC: HO.XRAY 07:48
PROVIDERS: PCP Internal Medicine; Visit Provider Nurse Practitioner Family
DX: K21.9 Gastro-esophageal reflux disease without esophagitis (principal)
CPT/HCPCS: 74240

== ENCOUNTER → 2024-04-27 07:48 | Outpatient (BNV) | payer OTHER, SELFPAY | PROVIDERS: PCP Internal Medicine; Visit Provider Physician Assistant Surgical | DX: K21.9 Gastro-esophageal reflux disease without esophagitis (principal) | CPT/HCPCS: 74246 ==

== ENCOUNTER 2024-05-03 08:21 | Outpatient (AMB) | payer OTHER, SELFPAY ==
[2024-05-03 08:22] VITALS: BP 122/72; PULSE 105; O2SAT 97; BMI 32.8
--- NOTE | 2024-05-03 08:22 | A.OFFPC_ITS ---
Vital Signs 05/03/24 08:22 Height 5 ft 3 in Weight 185 lb 2 oz BMI 32.8 BP 122/72 Blood Pressure Location Rt brachial Position Sitting Pulse 105 H Pulse Source Pulse Oximeter Pulse Oximetry (%) 97 Oxygen Delivery Method Room Air Intake Visit Reasons: Blood in stool Allergies No Known Allergies Allergy (Verified 05/03/24 08:23) Medication List - Last Reconciled 05/03/24 by Kenny Shin MD amitriptyline 10 mg PO BEDTIME bismuth subsalicylate 2 tabs PO QID 14 days buspirone 5 mg PO BID PRN 30 days cholecalciferol (vitamin D3) 25 mcg PO DAILY 90 days clobetasol 0.05% 1 appl topical BID 2 weeks desog-e.estradiol/e.estradiol 0.15-0.02 mgx21 /0.01 mg x 5 1 tab PO DAILY famotidine 20 mg PO DAILY fluoxetine 20 mg PO DAILY 90 days gabapentin 100 mg PO BEDTIME omeprazole 20 mg PO BID 90 days tetracycline 1,000 mg (2 x 500 mg) PO Q12H Tobacco use date assessed: 05/03/24 Dental Screening Dental Screen Date: 05/03/24 Did you have a dental visit in the last 12 months?: Yes Did you have a dental problem in the last 6 months where you did not have access to dental care?: No Was dental information given to patient?: Patient has dentist HPI Blood in stool HPI Details Patient is 28-year-old female with a history of headaches, OCD, anemia, UTI, depression, anxiety, psoriasis, insomnia, hirsutism presenting with concerns of weight gain, primarily attributed to the use of gabapentin over the past three months for sciatica. Symptoms of increased appetite observed concomitant with weight increase from 165 to 185 pounds. Discontinued gabapentin due to concern of rapid weight gain nearing 200 pounds. - Reports gastrointestinal bleeding, gilbert racterized by presence of a significant amount of blood in stool, first noted on Wednesday. Intermittent bleeding observed, diminishing intensity noted recently. H. pylori infection confirmed; completed a course of two antibiotics through Gastroenterology office, Scheduled to see wildlife enforcement major in May. - Experience with headaches being manage d with amitriptyline; mild improvement noted, though concerns persist. Neurological consultation led to cessation of gabapentin without alternative treatment due to weight concerns. - Acne development noted, specifically o n the nose. Inquiry regarding correlation with medications, though advised as possibly hormonal. - Expresses desire for mood stability an d appetite control. Previous use of gabapentin for combined anxiety and nerve pain relief; current management with consideration of Topamax for weight loss and mood stabilization. Problem List - Sciatica - Headache - Overweight - Gastrointestinal bleeding - H. pylori infection - Acne - Polypharmacy - anxiety Patient Instructions - Start taking Topamax as prescribed, 30 tablets provided. - Monitor for weight changes and mood st abilization over the next two to three weeks. - Report any significant changes in blee ding, appetite, or other symptoms promptly. - Send an update message via the patient portal in two to three weeks regarding response to Topamax. - Follow up with wildlife enforcement major as sae sahni. - Engage in healthy lifestyle practices to assist in weight management. Review of Systems - Gastrointestinal: Reports weight gain, increased appetite, gastrointestinal bleeding related to bowel movements. - Neurological: Reports headaches; denie s current pain due to sciatica. - Integumentary: Reports acne developmen t, particularly on nose. - General: Denies diarrhea; reports no s ymptoms of . - General: No fever no chills - Neurological: No headaches no dizziness - Ear nose throat: No sore throat no hearing difficulty no ear pain - Cardiovascular: No syncope, no chest pain, no palpitations - Gastrointestinal: No nausea vomiting or diarrhea - Endocrine: No polyuria polydipsia no heat intolerance - Genitourinary: No dysuria , no blood in urine Physical Exam General: No acute distress HEENT: No acute findings Neck: Supple Respiratory system: Able to talk in full sentences, no audible wheeze cardiovascular: S1-S2 regular in rate and rhythm Gastrointestinal: Blood in stool, positive for H-Pylori Extremities: No new findings 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 Sister No problems noted. Maternal Aunt Uterine cancer Ovarian cancer Other Mental health disorder Substance use disorder Social History Household Members: Significant Other Both parents involved: Yes Caregiver staying overnight: No Housing: House Are you a primary managed care coordinator to a significant other at home: No Do you presently have visiting nurse or other home services: No 75 years or older and lives alone: No Alcohol intake: never Patient Tobacco Use Status: Former Tobacco user e-Cigarette/Vaping Use: Never Used Substance Use Type: Marijuana Trauma History: denies Agree to transfusion: Yes service: No Current occupational status: employed 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 1. Little interest or pleasure in doing things: not at all 2. Feeling down, depressed, or hopeless: several days 3. Trouble falling or staying asleep, or sleeping too much: more than half the days 4. Feeling tired or having little energy: several days 5. Poor appetite or overeating: several days 6. Feeling bad about yourself - or that you are a failure or have let yourself or your family down: not at all 7. Trouble concentrating on things, such as reading the newspaper or watching television: several days 8. Moving or speaking so slowly that other people could have noticed. Or the opposite - being so fidgety or restless that you have been moving around a lot more than usual: several days 9. Thoughts that you would be better off or of hurting yourself in some way: not at all Total score: 7 Depression Screening Interpretation: Negative Depression Screening Done: Yes 76291 - PHQ-9 Billing: Yes Source: Developed by Drs. Morales Gutierres, Connie Goldman, Tadeo Wilson and colleagues, with an educational albert from [employer]. Thrive Questionnaire Date Thrive assessed: 05/03/24 I am a: Patient What is your living situation today?: I have a steady place to live Within the past 12 months, did the food you bought not last and you didn't have the money to get more?: Sometimes True Within the past 12 months, did you worry whether your food would run out before you got money to buy more?: Never true Do you have trouble paying for medicines?: I choose not to answer this question Do you have trouble getting transportation to medical appointments?: No Do you have trouble paying your heating and electricity bill?: Yes Do you have trouble taking care of your child, family member or friend?: No Do you have trouble with day-to-day activities such as bathing, preparing meals, shopping, managing finances, etc.?: No Are you currently unemployed and looking for a job?: No Are you interested in more education?: No Please select the resources that you would like help with: None Currently or been in a relationship where the following occur: I choose not to answer THRIVE Score: 2 AUDIT C Alcohol Use Questionnaire (AUDIT-C) 1. How often do you have a drink containing alcohol?: Never 3. How often do you have six or more drinks on one occasion?: Never Total Score: 0 Score Reviewed/Action Taken: Yes LUCIE-7 AMB Questionnaire LUCIE-7 Date LUCIE - 7 assessed: 05/03/24 Feeling nervous, anxious, or on edge: 0 = Not at all Not being able to stop or control worryin = Not at all Worrying too much about different things: 0 = Not at all Trouble relaxin = Not at all Being so restless that it is hard to sit still: 0 = Not at all Becoming easily annoyed or irritable: 0 = Not at all Feeling afraid as if something awful might happen: 0 = Not at all Total LUCIE-7 score (0-4 normal; 5-9 mild; 10-14 moderate; 15-21 severe): 0 Source: Developed by Drs. Morales Gutierres, Connie Goldman, Tadeo Wilson and colleagues, with an educational albert from [employer]. LUCIE-7 Assessment Billing LUCIE-7 Assessment Tool: LUCIE-7 Assessment 56152 Physical exam (Primary Care) Vital Signs: Last Vital Signs Pulse 105 H 05/03/24 08:22 BP 122/72 05/03/24 08:22 Pulse Ox 97 05/03/24 08:22 Oxygen Delivery Method Room Air 05/03/24 08:22 BMI result Body Mass Index 32.8 Tobacco/Smoking Status: Tobacco use Status Tobacco use date assessed 05/03/24 05/03/24 08:26 Patient Tobacco Use Status Former Tobacco user 05/03/24 08:26 Tobacco use type 01/18/24 14:57 e-Cigarette/Vaping Use Never Used 05/03/24 08:26 PHQ-9: PHQ-9 Score PHQ-9: Total score 7 05/03/24 08:36 Depression Screening Interpretation: Negative Thrive Assessment: Date of Thrive Assessment Date Thrive assessed 05/03/24 05/03/24 08:26 Currently or been in a relationship where the following occur: I choose not to answer Coding Level of Care Code Est Pt Level 4 (62316) Diagnoses Headache syndrome G44.89 Left lumbar radiculitis M54.16 Class 1 obesity due to excess calories without serious comorbidity with body mass index (BMI) of 32.0 to 32.9 in adult E66.811; E66.09; Z68.32 Obesity classification: adult class 1 (BMI 30 - 34.9) Serious obesity comorbidity presence: without serious comorbidity Body mass index: BMI 32.0-32.9 Severe episode of recurrent major depressive disorder, without psychotic features F33.2 Psychotic features: without psychotic features Anxiety, generalized F41.1 Difficulty sleeping G47.9 Other hemorrhoids K64.8 Hemorrhoid type: other Other acne L70.8 Acne type: other acne Additional Codes LUCIE-7 Assessment Billing - LUCIE-7 Assessment Tool: LUCIE-7 Assessment 44507 ([id number]) PHQ-9 - 13262 - PHQ-9 Billing: Yes ([id number]) Assessment & Plan Assessment & Plan (1) Headache syndrome: Code(s): G44.89 - Other headache syndrome Category: Medical (2) Left lumbar radiculitis: Code(s): M54.16 - Radiculopathy, lumbar region Category: Medical (3) Obesity due to excess calories: Code(s): E66.09 - Other obesity due to excess calories Category: Medical Qualifiers: Obesity classification: adult class 1 (BMI 30 - 34.9) Serious obesity comorbidity presence: without serious comorbidity Body mass index: BMI 32.0- 32.9 Qualified Code(s): E66.811 - Obesity, class 1; E66.09 - Other obesity due to excess calories; Z68.32 - Body mass index [BMI] 32.0-32.9, adult (4) Depression, major, severe recurrence: Code(s): F33.2 - Major depressive disorder, recurrent severe without psychotic features Category: Medical Qualifiers: Psychotic features: without psychotic features Qualified Code(s): F33.2 - Major depressive disorder, recurrent severe without psychotic features (5) Anxiety, generalized: Code(s): F41.1 - Generalized anxiety disorder Category: Medical (6) Difficulty sleeping: Code(s): G47.9 - Sleep disorder, unspecified Category: Medical (7) Hemorrhoid: Code(s): K64.9 - Unspecified hemorrhoids Category: Medical Qualifiers: Hemorrhoid type: other Qualified Code(s): K64.8 - Other hemorrhoids (8) Acne: Code(s): L70.9 - Acne, unspecified Category: Medical Qualifiers: Acne type: other acne Qualified Code(s): L70.8 - Other acne Plan Patient is 28-year-old female with a history of headaches, OCD, anemia, UTI, depression, anxiety, psoriasis, insomnia, hirsutism presenting with concerns of weight gain, primarily attributed to the use of gabapentin over the past three months for sciatica. Symptoms of increased appetite observed concomitant with weight increase from 165 to 185 pounds. Discontinued gabapentin due to concern of rapid weight gain nearing 200 pounds. - Reports gastrointestinal bleeding, characterized by presence of a significant amount of blood in stool, first noted on Wednesday. Intermittent bleeding observed, diminishing intensity noted recently. H. pylori infection confirmed; completed a course of two antibiotics through Gastroenterology office, Scheduled to see wildlife enforcement major in May. - Experience with headaches being managed with amitriptyline; mild improvement noted, though concerns persist. Neurological consultation led to cessation of gabapentin without alternative treatment due to weight concerns. - Acne development noted, specifically on the nose. Inquiry regarding correlation with medications, though advised as possibly hormonal. - Expresses desire for mood stability and appetite control. Previous use of gabapentin for combined anxiety and nerve pain relief; current management with consideration of Topamax for weight loss and mood stabilization. Problem List - Sciatica - Headache - Overweight - Gastrointestinal bleeding - H. pylori infection - Acne - Polypharmacy - anxiety Patient Instructions - Start taking Topamax as prescribed, 30 tablets provided. - Monitor for weight changes and mood stabilization over the next two to three weeks. - Report any significant changes in bleeding, appetite, or other symptoms promptly. - Send an update message via the patient portal in two to three weeks regarding response to Topamax. - Follow up with wildlife enforcement major as scheduled. - Engage in healthy lifestyle practices to assist in weight management. Medications: New topiramate (Topamax) 25 mg PO DAILY 30 tabs 0RF Discontinued gabapentin Discontinued Reason: Doctor's Order 100 mg PO BEDTIME 90 caps 0RF
== END 2024-05-03 09:05 | disposition home or self-care (01) ==
PROVIDERS: PCP Internal Medicine; Visit Provider Internal Medicine
DX: G44.89 Other headache syndrome (principal); M54.16 Radiculopathy, lumbar region; E66.811 Obesity, class 1; E66.09 Other obesity due to excess calories; Z68.32 Body mass index [BMI] 32.0-32.9, adult; F33.2 Major depressive disorder, recurrent severe without psychotic features; F41.1 Generalized anxiety disorder; G47.9 Sleep disorder, unspecified; K64.8 Other hemorrhoids; L70.8 Other acne

== ENCOUNTER → 2024-05-03 08:21 | Outpatient (BNVA) | payer OTHER, SELFPAY | PROVIDERS: PCP Internal Medicine; Visit Provider Internal Medicine | DX: K92.1 Melena (principal); G44.89 Other headache syndrome; M54.16 Radiculopathy, lumbar region; E66.811 Obesity, class 1; E66.09 Other obesity due to excess calories; Z68.32 Body mass index [BMI] 32.0-32.9, adult; F33.2 Major depressive disorder, recurrent severe without psychotic features; F41.1 Generalized anxiety disorder; G47.9 Sleep disorder, unspecified; K64.8 Other hemorrhoids; L70.8 Other acne; Z79.899 Other long term (current) drug therapy | CPT/HCPCS: 96127 ==

== ENCOUNTER 2024-05-24 13:16 | Outpatient (REF) | payer OTHER, SELFPAY ==
--- OUTSIDE RECORDS SUMMARY | 2024-05-24 15:52 | XMS_ITS | Clinical Summary ---
Author Organization [facility] Address [address] [place] [address] Care Team Providers Care Student Union Consultant Name Role Phone Unavailable Primary Care Provider [...] Description 07/03/2024 9:00 AM EDT Office Visit [facility] [address] [place] [phone] Veronica Fernandez [address] [place] [id number] Health Maintenance Due Date Last Done Comments Dental Perio Charting 1995 HPV Screening 1995 Hepatitis C Screening 1995 Lipid Screening 1995 Pap + HPV 1995 HIV Screening 2010 Relationship Safety Screening/Counseling 2010 Cervical Cancer Screening 2016 Pap Smear 2016 Czy-[id number]-84 ( season) 2023 Imm-Influenza (#1) 2023 05/08/2015, [...] from Last 3 Months Insurance BCBS DENTAL [facility]) Member Subscriber Plan / Payer (Ef fective 2021-Present) Name:Maisha Deluna Relation to Subscriber:Self Name:Maisha Deluna Payer ID:[id number] Type:[employer] Address: [address] [place] [id number]
[2024-05-25 04:52] LABS: CT PCR NOT DETECTED (Not Detect.); NG PCR NOT DETECTED (Not Detect.)
[2024-05-25 12:46] LABS: Bacterial Vaginosis PCR NEGATIVE (Negative); Candida Group PCR NOT DETECTED (Not Detect); Candida glab krusei PCR NOT DETECTED (Not Detect); Trichomonas vaginalis PCR NOT DETECTED (Not Detect)
== END 2024-05-24 13:17 | disposition home or self-care (01) ==
LOC: HO.LNP 13:16
PROVIDERS: PCP Internal Medicine; Visit Provider Advanced Practice Midwife
DX: B37.31 Acute candidiasis of vulva and vagina (principal); N92.1 Excessive and frequent menstruation with irregular cycle; R79.89 Other specified abnormal findings of blood chemistry; Z11.3 Encounter for screening for infections with a predominantly sexual mode of transmission
CPT/HCPCS: 81515; 87491; 87591

== ENCOUNTER 2024-05-24 13:16 | Outpatient (AMB) | payer OTHER, SELFPAY ==
--- NOTE | 2024-05-24 13:16 | A.OFFVIS_ITS ---
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 (Shelby) Accompanied by: Self / Same As Patient Allergies No Known Allergies Allergy (Verified 05/24/24 13:24) Medication List - Last Reconciled 05/24/24 by Ness Arita CNM bismuth subsalicylate 2 tabs PO QID 14 days famotidine 20 mg PO DAILY fluoxetine 20 mg PO DAILY 90 days gabapentin 100 mg PO BEDTIME omeprazole 20 mg PO BID 90 days topiramate (Topamax) 25 mg PO DAILY Is last menstrual period known: Yes Last menstrual period: 05/08/24 Post menopausal: No Patient : No HPI HPI irreg bleeding: Details: Because she has had some irregular bleeding she has a history of PCOS but lately her periods have been very regular and normal and her last menstrual period came May 08 was 10 days late and then it lasted for a normal amount of time for the heavy bleeding but then it stopped for a day and then she had some brown spotting discharge and then a day later she had clear pink spotting and she has never had that before her nipples were extra sensitive during the time that her period was late she did a test and it was negative. She is not contraceptive thing she is open to if it happens she and her partner been together from years he recently got fully screened for STIs and she mind getting fully screened for STIs just to check on everything. Additionally she was recently treated for H pylori and was on antibiotics for 2 weeks and she does not have any itching but she was told to watch out for yeast infection and she notices that her clitoris is a little bit extra red around it and she wonders if she might have a little bit of yeast. She is on some mental health medications and she did stopped some of them although they were different meds at time when she got the last time. She had a baby 2 years ago delivered at [facility] she was transferred from [place] to [facility] because of preeclampsia but she says that when she got there she did not really have any preeclampsia or gestational diabetes or anything. She did have a 9 lb baby and she diagnoses them to induce her because he was so big though she delivered without any diabetes or preeclampsia. She said all of her pains were in butt. She says she has gained about 30 lb this fall she was working 2 jobs before but now she is working 1. [facility] Medical History (Updated 05/24/24 @ 14:39 by Ness Arita CNM) PCOS (polycystic ovarian syndrome) Anxiety Depression Dyspepsia Difficulty sleeping Psoriasis Surgical History No pertinent past surgical history Family History Father Bipolar disorder Back problem Mother Asthma Heart problem Maternal Grandfather CVD (cardiovascular disease) Myocardial infarction Paternal Aunt Breast cancer Brother No problems noted. Sister No problems noted. 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 Vagina pink and clear cervix multiparous pink smooth healthy appearing very clear almost fertile mucus with tiny streaks of blood coming through os. Cervix long close thick mobile nontender mid position uterus nonte nder adnexa nontender nonenlarged good tone w Kegel. External Female Exam: normal external appearance Speculum Exam - Vagina: normal appearance of the vagina and normal vaginal discharge Speculum Exam - Cervix: normal appearance of the cervix Bimanual exam- vagina & uterus: normal bimanual exam, uterine size normal, consistency normal, uterine mobility normal, uterine shape normal and non-tender Bimanual Exam- Adnexa, other: normal adnexae, no masses and No adnexal tenderness Assessment & Plan Assessment & Plan (1) Low TSH level: Code(s): R79.89 - Other specified abnormal findings of blood chemistry Category: Medical (2) Encounter for screening examination for sexually transmitted disease: Code(s): Z11.3 - Encounter for screening for infections with a predominantly sexual mode of transmission Category: Medical (3) Irregular intermenstrual bleeding: Code(s): N92.1 - Excessive and frequent menstruation with irregular cycle Category: Medical (4) Yeast infection involving the vagina and surrounding area: Comment: Vulva pink and inflamed especially around clitoris, recently finished antibiotics for H pylori treatment, we will treat with Monistat for p.r.n. use. Code(s): B37.31 - Acute candidiasis of vulva and vagina Category: Medical (5) Family planning: Code(s): Z30.09 - Encounter for other general counseling and advice on contraception Category: Social Hx Plan Discussed all of her issues and discussed the range of possibilities why she might be having some spotting they range from possible early that has not yet been diagnosed we will rule that out with serum HCG. If it is positive we will follow quants accordingly.. More likely possibilities including regular or late menses due to weight gain and the concurrent lifelong history of PCOS. Another possibility is be thin bleeding spotting that she is experiencing are from either implantation bleeding or spotting with ovulation. At her request doing screening for HIV hep B hep C syphilis I explained why we would not do soon testing for herpes unless there were lesions. Testing done during exam gonorrhea chlamydia trichomoniasis Nina bacterial vaginosis. Discharge very clear and healthy appearing expect negative findings from those tests however BV and yeast are often found. Will offer treatment with Monistat for use externally or future should internally should she need it. She can use it as she needs it for the irritated vulva near the clitoris.. As regards being open to versus wanting to prevent she feels she is open to if it happens her little boy about to be two would have a sibling, and it would be good. Discussed taking multivitamins with folic acid if she is open to and checking medication she is on as to whether not they are okay to take or not check primary as well. In addition reviewed her delivery and discussed that it might serve her well to consider losing some weight before the and certainly to try not to gain a lot of weight in the so she does not have macrosomic baby or deal with gestational diabetes or pre eclampsia in the future. labs prn Orders: Orders Hepatitis B Surface Antigen Today R7 - Other specified abnormal findings of blood chemistry, Z11.3 - Encounter for screening for infections with a predominantly sexual mode of transmission Hepatitis C Antibody Today R789 - Other specified abnormal findings of blood chemistry, Z11.3 - Encounter for screening for infections with a predominantly sexual mode of transmission Syphilis Screen Today R789 - Other specified abnormal findings of blood chemistry, Z11.3 - Encounter for screening for infections with a predominantly sexual mode of transmission HCG Quantitative Today R789 - Other specified abnormal findings of blood chemistry, Z11.3 - Encounter for screening for infections with a predominantly sexual mode of transmission HIV Ab/Ag Today - Other specified abnormal findings of blood chemistry, Z11.3 - Encounter for screening for infections with a predominantly sexual mode of transmission Medications: New miconazole nitrate 2% (Miconazole-7) Use p.r.n. for yeast 1 appful vaginal BEDTIME 7 days 45 grams 2RF Coding Level of Care Code Est Pt Level 3 (43647) Diagnoses Low TSH level R79.89 Encounter for screening examination for sexually transmitted disease Z11.3 Irregular intermenstrual bleeding N92.1 Yeast infection involving the vagina and surrounding area B37.31 Family planning Z30.09 Time Spent (min) 45 Comment 90% spent discuss in her concerns and making for evaluation.
[2024-05-24 13:18] VITALS: BP 120/72; BMI 32.9
--- OUTSIDE RECORDS SUMMARY | 2024-05-24 14:39 | XMS_ITS | Clinical Summary ---
Author Organization [facility] Address [address] [place] [address] Care Team Providers Care Department Manager Name Role Phone Unavailable Primary Care Provider Unavailabl e Source Comments PLEASE NOTE, if this patient is a minor, it may be UNLAWFUL to discuss sensitive information that is contained in these records (such as FAMILY PLANNING, MENTAL HEALTH or SUBSTANCE ABUSE) with the minor patient's parent or other person without the patient's specific authorization.[facility] Allergies No known active allergies Medications No known medications Active Problems No known active problems Immunizations Name Administration Dates Next Due DTAP (DAPTACEL),5 PERTUSSIS ANTIGENS 12/2000,12/13/1997,01/19/1996,11/08,1995 Flu, Preservative Free 05/08/2015 HEP B, PED/ADOL 08/14/1996,1995,1995 HPV, QUADRIVALENT 10/31/2008,04/30/2008,01/20/20 07 Hep A, Ped/adol, 2 Dose 09/26/2013 Hep B,adult,adjuvanted (HEPLISAV) 11/28/2020 Hib (HbOC) 12/13/1997, 6,1995,08/19 INFLUENZA, SEASONAL, INJECTABLE 12/12/2010 IPV 04/27/2000 MENINGOCOCCAL MCV4P (MENACTRA) 01/19/2007 MMR (MMR II/Priorix) 11/26/2020,04/27/2000,08/14 OPV, Trivalent 08/14/1996,1995,1995 PPD 10/27/2023,11/25/2022 TDAP 07/19/2018,01/19/2007 Td(adult),2 Lf tetanus toxoid,preservative free 07/18/2018 Varicella, Live Vaccine 10/31/2008,12/13/1997 Social History Tobacco Use Types Packs/Day Years Used Date Smoking Tobacco: Never Passive Smoke Exposure: Never Smokeless Tobacco: Never Tobacco Cessation:Counseling Given: No Alcohol Use Standard Drinks/Week Comments Never 0 (1 standard drink = 0.6 oz pur e alcohol) Social Connections Answer Date Recorded Connectedness 0 12/31/2023 Financial Resource Strain Answer Date R ecorded Financial Resource Strain 0 2020 Stress Answer Date Recorded Stress 0 01/15/2021 Physical Activity Answer Date Recorded Physical Activity 0 01/15/2021 Food Insecurity Answer Date Recorded Food 0 01/13/2024 Transportation Needs Answer Date Record ed Transportation 0 01/15/2021 Housing Stability Answer Date Recorded Housing 0 01/15/2021 Safety and Environment Answer Date El rded Safety 0 01/15/2021 Utilities Answer Date Recorded Utilities 0 01/15/2021 Employment Answer Date Recorded Stress 0 12/31/2023 Comments Unknown Sex and Gender Information Value Date Recorded Sex Assigned at Female 11/19/2023 6:09 AM PDT Legal Sex Female 11:23 AM PDT Gender Identity Female 11/19/2023 6:09 AM PDT Sexual Orientation Straight 11/19/2023 6: 09 AM PDT Last Filed Vital Signs Vital Sign Reading Time Taken Comments Blood Pressure 130/81 02/03/2024 1:04 PM EDT Pulse 90 02/03/2024 1:04 PM EDT Temperature 37.2 ??C (98.9 ??F) 11/19/2023 9:04 AM ED T Respiratory Rate 16 11/19/2023 9:04 AM EDT Oxygen Saturation - - Inhaled Oxygen Concentration - - Weight 77.6 kg (171 lb) 11/19/2023 9:04 AM EDT Height 160 cm (5' 3 ) 11/19/2023 9:04 AM EDT Body Mass Index 30.29 11/19/2023 9:04 AM EDT Plan of Treatment Upcoming Encounters Date Type Department Care Team (Late st Contact Info) Description 07/03/2024 9:00 AM EDT Office Visit [facility] [address] [place] [phone] Veronica Fernandez [address] [place] [id number] Health Maintenance Due Date Last Done Comments Dental Perio Charting 1995 HPV Screening 1995 Hepatitis C Screening 1995 Lipid Screening 1995 Pap + HPV 1995 HIV Screening 2010 Relationship Safety Screening/Counseling 2010 Cervical Cancer Screening 2016 Pap Smear 2016 [id number] ( season) 2023 Imm-Influenza (#1) 2023 05/08/2015, 12/12/2010 Alcohol and Drug Screen 04/19/2024 Depression Annual Screen 04/19/2024 Tobacco Screening 11/18/2024 11/19/2023 Dental Prophy 01/01/2025 12/31/2023 Hypertension Screening (#1) 02/02/2025 Imm-DTaP/Tdap/Td (10 - Td or Tdap) 03/18/2032 03/18/2022, 07/19/2018, 07/18/2018, Additional history exists Imm-Hepatitis B Completed 11/28/2020, 07/19, 1995, Additional history exists Cervical Ablation/Cold-Knife Conization Discontinued Cervical Cryotherapy Discontinued Colposcopy Discontinued Endometrial Biopsy Discontinued Excision/Leep Discontinued HPV Genotyping Discontinued Vaginal Pap Discontinued Vulvoscopy Discontinued Procedures Procedure Name Priority Date/Time Associated Diagnosis Comments COVID-19, ID NOW, BASILIO (POCT) Routine 04/26/2024 11:49 AM EST Encounter for laboratory testing for COVID-19 virus Full PROPHYLAXIS - ADULT Routine 12/31/2023 9:00 AM EDT Encounter for dental examination from Last 3 Months or Most Recently Relevant to Health Maintenance Results * COVID-19, ID NOW, BASILIO (POCT) (04/26/2024 11:49 AM EST) COVID-19 NEGATIVE NEGATIVE [facility] INTERNAL CONTROL PASS PASS [facility] Swab Nasal structure / Unknown 04/26/2024 11:49 AM EST us Scottie Cullen MD LAB - NO BLOOD DRAW Final Re sult [facility] from Last 3 Months Insurance BCBS DENTAL [facility]) Member Subscriber Plan / Payer (Ef fective 2021-Present) Name:Maisha Deluna Relation to Subscriber:Self Name:Maisha Deluna Payer ID:[id number] Type:[email or web address] Address: [address] [place] [id number]
== END 2024-05-24 15:10 | disposition home or self-care (01) ==
PROVIDERS: PCP Internal Medicine; Visit Provider Advanced Practice Midwife
DX: R79.89 Other specified abnormal findings of blood chemistry (principal); N92.1 Excessive and frequent menstruation with irregular cycle; B37.31 Acute candidiasis of vulva and vagina
CPT/HCPCS: 99213

== ENCOUNTER 2024-05-24 14:36 | Outpatient (REF) | payer OTHER, SELFPAY ==
[2024-05-24 17:03] LABS: HCG Quantitative < 2 mIU/mL
[2024-05-25 07:37] LABS: HBsAGNum1 0.31 S/CO (0.00-0.99); HIV AB/AG Nonreactive (Nonreactive); HIV Num 1 0.06 S/CO (0.00-0.99); Hepatitis B Surface Antigen Negative (Negative); ~HepC Num1 0.13 S/CO (0.00-0.79); ~Hepatitis C Antibody Nonreactive (Nonreactive)
[2024-05-25 07:40] LABS: Syphilis Screen Nonreactive (Nonreactive)
== END 2024-05-24 14:37 | disposition home or self-care (01) ==
LOC: HO.HHCL 14:36
PROVIDERS: Visit Provider Advanced Practice Midwife
DX: R79.89 Other specified abnormal findings of blood chemistry (principal); Z20.2 Contact with and (suspected) exposure to infections with a predominantly sexual mode of transmission
CPT/HCPCS: 36415; 84702; 86780; 86803; 87340; 87389

== ENCOUNTER 2024-06-22 08:32 | Outpatient (AMB) | payer OTHER, SELFPAY ==
--- NOTE | 2024-06-22 08:41 | MHC.PC.OV ---
Intake Visit Reasons: med management/adjustment Allergies No Known Allergies Allergy (Verified 06/22/24 08:42) Medication List - Last Reconciled 06/22/24 by Kenny Shin MD bismuth subsalicylate 2 tabs PO QID 14 days famotidine 20 mg PO DAILY fluoxetine 20 mg PO DAILY 90 days gabapentin 100 mg PO BEDTIME miconazole nitrate 2% (Miconazole-7) 1 appful vaginal BEDTIME 7 days omeprazole 20 mg PO BID 90 days topiramate 50 mg PO DAILY Tobacco use date assessed: 06/22/24 Dental Screening Dental Screen Date: 06/22/24 Did you have a dental visit in the last 12 months?: Yes Did you have a dental problem in the last 6 months where you did not have access to dental care?: No Was dental information given to patient?: Patient has dentist HPI med management/adjustment HPI Details History The patient is a 29-year-old female presenting with medication management for headaches, anxiety, and OCD. - Reports improvement in headache frequency since initiating Topiramate, with one recent headache due to not wearing prescribed glasses. - Regularly takes Gabapentin 100 mg nightly, with no adverse effects reported. - feeling calmer with anxiety since beginning Topiramate, though not currently taking prescribed Fluoxetine for OCD and anxiety. - No current need for further anxiety medication; patient is comfortable with current regimen. Problem List - Headaches - Anxiety - Obsessive-Compulsive Disorder (OCD) Patient Instructions - Continue taking Topiramate every morning and Gabapentin every night as currently prescribed. - Ensure glasses are worn to prevent headaches. - Reevaluate medication management in three months. - Refills for medications will be sent to the [facility]. Review of Systems - General: No fever no chills - Neurological: No headaches no dizziness - Ear nose throat: No sore throat no hearing difficulty no ear pain - Cardiovascular: No syncope, no chest pain, no palpitations - Gastrointestinal: No nausea vomiting or diarrhea - Endocrine: No polyuria polydipsia no heat intolerance - Genitourinary: No dysuria , no blood in urine [facility] Medical History (Updated 06/22/24 @ 10:08 by Kenny Shin MD) PCOS (polycystic ovarian syndrome) Anxiety Depression Dyspepsia Difficulty sleeping Psoriasis Surgical History No pertinent past surgical history Family History Father Bipolar disorder Back problem Mother Asthma Heart problem Maternal Grandfather CVD (cardiovascular disease) Myocardial infarction Paternal Aunt Breast cancer Brother No problems noted. Sister No problems noted. 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 How often do you have a drink containing alcohol?: Never 3. How often do you have six or more drinks on one occasion?: Never Total Score: 0 Score Reviewed/Action Taken: Yes LUCIE-7 AMB Questionnaire LUCIE-7 Date LUCIE - 7 assessed: 05/03/24 Source: Developed by Drs. Morales Gutierres, Connie Goldman, Tadeo Wilson and colleagues, with an educational albert from [employer]. Physical exam (Primary Care) Tobacco/Smoking Status: Tobacco use Status Tobacco use date assessed 06/22/24 06/22/24 08:42 Patient Tobacco Use Status Former Tobacco user 06/22/24 08:42 Tobacco use type 01/18/24 14:57 e-Cigarette/Vaping Use Never Used 06/22/24 08:42 Thrive Assessment: Date of Thrive Assessment Date Thrive assessed 05/03/24 06/22/24 08:42 Telehealth Telehealth Telehealth Platform: [facility] Location of provider rendering services: practice address Location of patient: address on file Patient Identification confirmed using: Name, : Yes Telehealth method: voice only Patient verbally consented to treatment: Yes Patient verbally consented to billing insurance company: Yes Patient informed of any privacy concerns related to visit: Yes Minutes spent on Phone/Video with Pt.: 12 Coding Level of Care Code Tele Est Pt Level 3 (21564) Diagnoses Headache syndrome G44.89 Other obsessive-compulsive disorders F42.8 Obsessive-compulsive disorder type: other Anxiety F41.9 Assessment & Plan Assessment & Plan (1) Headache syndrome: Code(s): G44.89 - Other headache syndrome Category: Medical (2) OCD (obsessive compulsive disorder): Code(s): F42.9 - Obsessive-compulsive disorder, unspecified Category: Medical Qualifiers: Obsessive-compulsive disorder type: other Qualified Code(s): F42.8 - Other obsessive-compulsive disorder (3) Anxiety: Code(s): F41.9 - Anxiety disorder, unspecified Category: Medical Plan History The patient is a 29-year-old female presenting with medication management for headaches, anxiety, and OCD. - Reports improvement in headache frequency since initiating Topiramate, with one recent headache due to not wearing prescribed glasses. - Regularly takes Gabapentin 100 mg nightly, with no adverse effects reported. - feeling calmer with anxiety since beginning Topiramate, though not currently taking prescribed Fluoxetine for OCD and anxiety. - No current need for further anxiety medication; patient is comfortable with current regimen. Problem List - Headaches - Anxiety - Obsessive-Compulsive Disorder (OCD) Patient Instructions - Continue taking Topiramate every morning and Gabapentin every night as currently prescribed. - Ensure glasses are worn to prevent headaches. - Reevaluate medication management in three months. - Refills for medications will be sent to the [facility] on [facility]. Medications: Refilled topiramate 50 mg PO DAILY 90 tabs 0RF gabapentin 100 mg PO BEDTIME 90 caps 0RF Discontinued fluoxetine Discontinued Reason: Doctor's Order 20 mg PO DAILY 90 days 90 caps 0RF
== END 2024-06-22 11:00 | disposition home or self-care (01) ==
LOC: HO.HMCC 08:32
PROVIDERS: PCP Internal Medicine; Visit Provider Internal Medicine
DX: G44.89 Other headache syndrome (principal); F42.8 Other obsessive-compulsive disorder; F41.9 Anxiety disorder, unspecified

== ENCOUNTER → 2024-06-22 08:32 | Outpatient (BNVA) | payer OTHER, SELFPAY | PROVIDERS: PCP Internal Medicine; Visit Provider Internal Medicine ==

== ENCOUNTER 2024-07-03 10:26 | Outpatient (AMB) | payer OTHER, SELFPAY ==
--- NOTE | 2024-07-03 10:27 | MHC.OFFVIS ---
Intake Visit Reasons: TV Control Accompanied by: Self / Same As Patient Allergies No Known Allergies Allergy (Verified 07/03/24 10:27) Medication List - Last Reconciled 07/03/24 by Ness Arita CNM bismuth subsalicylate 2 tabs PO QID 14 days famotidine 20 mg PO DAILY gabapentin 100 mg PO BEDTIME miconazole nitrate 2% (Miconazole-7) 1 appful vaginal BEDTIME 7 days omeprazole 20 mg PO BID 90 days topiramate 50 mg PO DAILY Is last menstrual period known: Yes Last menstrual period: 06/29/24 (Still present ) Post menopausal: No Patient : No HPI HPI TV Control: Details: This was a tele visit to discuss control. Patient does need control but she is more interested actually in the side effect that she read about that sometimes control pills will will help with facial hair, because she feels that plucking and shaving is running her face and it is really interfering with her self-esteem. She also would be happy to have the control side effect but that is not her main issue today. She just start that on topiramate 2 months ago her primary care provider because her primary care provider thought it would help her with her appetite and help her with weight loss she has not lost any weight yet but it is helping her with her appetite. She knows that it is a seizure medication. She does not get seizures. She does get headaches and her doctor told her it would help with that too. She has a 2-year-old child she gets regular menses and her periods started on the 13th she is on her period right now. We reviewed the effects of control and that control pills do not necessarily help with reducing facial hair but often they are a necessary component along with other medicines usually given by either dermatology or endocrinology to help with hair growth. She is interested in starting on the control pills I did try to put in a dermatology referral but I am not able to so I asked her to check with her primary care provider about either an endocrinology or dermatology referral to address this issue further. She has a known history of PCOS so this is a longstanding issue for her she has an appointment with her primary care provider in August and I reviewed with her exactly how to take the control pills and if her blood pressure is good at the visit with her primary care provider then she does not need to be seen here in 3 months for pill check if she is doing well on the pills if she wants to be seen for any reason a before next year we have course can. [facility] Medical History PCOS (polycystic ovarian syndrome) Anxiety Depression Dyspepsia Difficulty sleeping Psoriasis Surgical History No pertinent past surgical history Family History Father Bipolar disorder Back problem Mother Asthma Heart problem Maternal Grandfather CVD (cardiovascular disease) Myocardial infarction Paternal Aunt Breast cancer Brother No problems noted. Sister No problems noted. Maternal Aunt Uterine cancer Ovarian cancer Other Mental health disorder Substance use disorder Social History Household Members: Significant Other Both parents involved: Yes Caregiver staying overnight: No Housing: House Are you a primary college and career counselor to a significant other at home: No Do you presently have visiting nurse or other home services: No 75 years or older and lives alone: No Alcohol intake: never Patient Tobacco Use Status: Former Tobacco user e-Cigarette/Vaping Use: Never Used Substance Use Type: Marijuana Trauma History: denies Agree to transfusion: Yes Patient : No service: No Current occupational status: employed 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 Current occupational exposures/hazards: No Cognitive needs: No Hearing needs: No Vision needs: No Female Reproductive History Menstrual Age of Menarche: 11 Date of last menstrual period: 06/29/24 (Still present ) Total pregnancies: 1 Full term: 1 Date of last pap smear: 11/27/20 (negative pap smear) Telehealth Telehealth Telehealth Platform: Telephone Location of provider rendering services: practice address Location of patient: address on file Patient Identification confirmed using: Name, : Yes Telehealth method: video Patient verbally consented to treatment: Yes Patient verbally consented to billing insurance company: Yes Patient informed of any privacy concerns related to visit: Yes Minutes spent on Phone/Video with Pt.: 24 (3 cr/24 speaking w pt/11 charting...=38) Assessment & Plan Assessment & Plan (1) PCOS (polycystic ovarian syndrome): Code(s): E28.2 - Polycystic ovarian syndrome Category: Medical (2) Hirsutism: Code(s): L68.0 - Hirsutism Category: Medical (3) control counseling: Code(s): Z30.09 - Encounter for other general counseling and advice on contraception Category: Medical (4) Obesity due to excess calories: Code(s): E66.09 - Other obesity due to excess calories Category: Medical Qualifiers: Obesity classification: adult class 1 (BMI 30 - 34.9) Serious obesity comorbidity presence: without serious comorbidity Body mass index: BMI 32.0-32.9 Qualified Code(s): E66.811 - Obesity, class 1; E66.09 - Other obesity due to excess calories; Z68.32 - Body mass index [BMI] 32.0-32.9, adult Plan This was a tele visit to discuss control. Patient does need control but she is more interested actually in the side effect that she read about that sometimes control pills will will help with facial hair, because she feels that plucking and shaving is running her face and it is really interfering with her self-esteem. She also would be happy to have the control side effect but that is not her main issue today. She just start that on topiramate 2 months ago her primary care provider because her primary care provider thought it would help her with her appetite and help her with weight loss she has not lost any weight yet but it is helping her with her appetite. She knows that it is a seizure medication. She does not get seizures. She does get headaches and her doctor told her it would help with that too. She has a 2-year-old child she gets regular menses and her periods started on the 13 she is on her period right now. We reviewed the effects of control and that control pills do not necessarily help with reducing facial hair but often they are a necessary component along with other medicines usually given by either dermatology or endocrinology to help with hair growth. She is interested in starting on the control pills I did try to put in a dermatology referral but I am not able to so I asked her to check with her primary care provider about either an endocrinology or dermatology referral to address this issue further. She has a known history of PCOS so this is a longstanding issue for her she has an appointment with her primary care provider in August and I reviewed with her exactly how to take the control pills and if her blood pressure is good at the visit with her primary care provider then she does not need to be seen here in 3 months for pill check if she is doing well on the pills if she wants to be seen for any reason a before next year we have course can. I recommend she start the pills today take them at the same time every single day and if she does get some spotting or breakthrough bleeding this is not an that is side effect but in this case given that she is on the topiramate it may indicate a lessening of the effectiveness of the pills so she should use condoms as well in addition she does not get seizures. One other effect of the interaction of the pills and the topiramate would be to decrease the anticonvulsive properties of the topiramate. Medications: New desog-e.estradiol/e.estradiol 0.15-0.02 mgx21 /0.01 mg x 5 1 tab PO DAILY 84 tabs 3RF Coding Level of Care Code Tele New Pt Level 3 (29005) Diagnoses PCOS (polycystic ovarian syndrome) E28.2 Hirsutism L68.0 control counseling Z30.09 Class 1 obesity due to excess calories without serious comorbidity with body mass index (BMI) of 32.0 to 32.9 in adult E66.811; E66.09; Z68.32 Obesity classification: adult class 1 (BMI 30 - 34.9) Serious obesity comorbidity presence: without serious comorbidity Body mass index: BMI 32.0-32.9
--- OUTSIDE RECORDS SUMMARY | 2024-07-03 11:45 | XMS_ITS | Clinical Summary ---
Author Organization [facility] Address [address] [place] [address] Care Team Providers Care Prison Psychiatrist Name Role Phone Unavailable Primary Care Provider [...] Care Team (Late st Contact Info) Description 07/15/2024 12:20 PM EDT Office Visit [facility] [address] [place] [phone] Veronica Fernandez [address] [place] [id number] Health Maintenance Due Date Last Done Comments Dental Perio Charting 1995 HPV Screening 1995 Hepatitis C Screening 1995 Lipid Screening 1995 Pap + HPV 1995 HIV Screening 2010 Relationship Safety Screening/Counseling 2010 Cervical Cancer Screening 2016 Pap Smear 2016 [id number] ( season) 2023 Imm-Influenza (#1) 2023 05/08/2015, [...] from Last 3 Months Insurance BCBS [facility]) Member Subscriber Plan / Payer (Ef fective 2021-Present) Name:Maisha Deluna Relation to Subscriber:Self Name:Maisha Deluna Payer ID:[id number] Type:[employer] Address: [address] [place] [id number]
== END 2024-07-03 11:20 | disposition home or self-care (01) ==
LOC: HO.HWS 10:26
PROVIDERS: PCP Internal Medicine; Visit Provider Advanced Practice Midwife
DX: E28.2 Polycystic ovarian syndrome (principal); L68.0 Hirsutism; Z30.09 Encounter for other general counseling and advice on contraception; E66.811 Obesity, class 1; E66.09 Other obesity due to excess calories; Z68.32 Body mass index [BMI] 32.0-32.9, adult
CPT/HCPCS: 99213

== ENCOUNTER → 2024-07-03 10:26 | Outpatient (BNVA) | payer OTHER, SELFPAY | PROVIDERS: PCP Internal Medicine; Visit Provider Advanced Practice Midwife ==

== ENCOUNTER 2024-07-06 07:14 | Day surgery (SDC) | payer OTHER, SELFPAY ==
[2024-07-04 13:57] VITALS: BMI 30.3
--- NOTE | 2024-07-05 08:45 | P.CONAN_ITS ---
Documented by User: Renu Parra NP 07/05/24 08:46 HPI - Anesthesia Eval Consult details Narrative: 29yo F for Upper Endoscopy PMFSH Active Problems Active Problems: All Active Problems control counseling (Acute) Anxiety (Acute) Family planning (Acute) Yeast infection involving the vagina and surrounding area (Acute) PCOS (polycystic ovarian syndrome) (Acute) Irregular intermenstrual bleeding (Acute) Encounter for screening examination for sexually transmitted disease (Acute) Acne (Acute) Blurring of vision (Acute) Headache syndrome (Acute) OCD (obsessive compulsive disorder) (Acute) Swelling, lymph nodes (Acute) Muscle spasm (Acute) Left lumbar radiculitis (Acute) Encounter for well woman exam with routine gynecological exam (Acute) Alteration in skin integrity due to moisture (Acute) Generalized abdominal pain (Acute) Compulsive disorder (Acute) Suprapubic discomfort (Acute) Vitamin D deficiency (Acute) Obesity due to excess calories (Acute) Anemia (Acute) Otitis externa (Acute) Vaginal discharge (Acute) Low TSH level (Acute) Screening for depression (Acute) Hemorrhoid (Acute) UTI (urinary tract infection) (Acute) Depression, major, severe recurrence (Acute) Encounter for general adult medical examination with abnormal findings (Acute) Tuberculosis screening (Acute) Bloating (Acute) Anxiety, generalized (Acute) Hirsutism (Acute) Dyspepsia (Acute) Difficulty sleeping (Acute) Psoriasis (Acute) Past Medical History Medical History PCOS (polycystic ovarian syndrome) Anxiety Depression Dyspepsia Difficulty sleeping Psoriasis Family History Family History Father Bipolar disorder Back problem Mother Asthma Heart problem Maternal Grandfather CVD (cardiovascular disease) Myocardial infarction Paternal Aunt Breast cancer Brother No problems noted. Sister No problems noted. Maternal Aunt Uterine cancer Ovarian cancer Other Mental health disorder Substance use disorder Surgical History Surgical History No pertinent past surgical history Social History Social History Household Members: Significant Other Housing: House Are you a primary care manager cna to a significant other at home: No Do you presently have visiting nurse or other home services: No Alcohol intake: never Patient Tobacco Use Status: Former Tobacco user e-Cigarette/Vaping Use: Never Used Substance Use Type: Marijuana Trauma History: denies Agree to transfusion: Yes service: No Current occupational status: employed 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/hazards: No Cognitive needs: No Hearing needs: No Vision needs: No Meds Allergies Allergy/AdvReac Type Severity Reaction Status Date / Time No Known Allergies Allergy Verified 07/06/24 08:15 Exam Height,Weight and Vital Signs: Height 5 ft 3 in Weight 77.564 kg Assessment and Plan Assessment Anesthesia Assessment: Chart Reviewed Documented by User: Darío Martines MD 07/06/24 09:04 PMF Past Medical History Medical History PCOS (polycystic ovarian syndrome) Anxiety Depression Dyspepsia Difficulty sleeping Psoriasis Patient : No Family History Family History Father Bipolar disorder Back problem Mother Asthma Heart problem Maternal Grandfather CVD (cardiovascular disease) Myocardial infarction Paternal Aunt Breast cancer Brother No problems noted. Sister No problems noted. Maternal Aunt Uterine cancer Ovarian cancer Other Mental health disorder Substance use disorder Family history of problems with anesthesia: No Surgical History Surgical History No pertinent past surgical history History of Problems with Anesthesia: No Social History Social History Household Members: Significant Other Housing: House Are you a primary care manager cna to a significant other at home: No Do you presently have visiting nurse or other home services: No Alcohol intake: never Patient Tobacco Use Status: Former Tobacco user e-Cigarette/Vaping Use: Never Used Substance Use Type: Marijuana Trauma History: denies Agree to transfusion: Yes service: No Current occupational status: employed 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/hazards: No Cognitive needs: No Hearing needs: No Vision needs: No Meds Allergies Allergy/AdvReac Type Severity Reaction Status Date / Time No Known Allergies Allergy Verified 07/06/24 08:15 Exam Airway Mallampati Class: I TM Dist: >3cm Neck ROM: Full Loose/Missing/Broken Teeth: No Heart: ok Lungs: ok Assessment and Plan Assessment Anesthesia Assessment: Anesthesia Plan Discussed Final Anesthetic Review Family History of Problems with Anesthesia: No History of Problems with Anesthesia: No NPO: Yes ASA Class: II Final Preanesthetic Review: No Changes in Pt Med Stat, Meds/Allgs Chart Reviewed, Consent Obtained/Reviewed and Anes Risks/Benef Reviewed Patient Risk: Low Procedure Risk: Intermediate Anesthetic Plan Anesthetic Plan: Agree w/ Assess. and Plan and TIVA Disposition: Standard PACU
[2024-07-06 08:11] VITALS: BMI 33.4
--- NOTE | 2024-07-06 08:17 | MHC.SHP ---
Pre-Procedural Eval Section A - 24 Hr Update-Section A only Date of Service: 07/06/24 Section B - Complete if H&P > 30 days Chief Complaint: gerd,Epigastric pain,Abdominal distension (gaseous Relevant Family History (Specify if Yes): No Relevant Social History: None Present Medications: see Short Stay Collaborative assessment Medical History: Significant History (PCOS (polycystic ovarian syndrome) Anxiety Depression Dyspepsia Difficulty sleeping Psoriasis) History of Previous Operations: No relevant previous surgery Allergies: Allergies Allergy/AdvReac Type Severity Reaction Status Date / Time No Known Allergies Allergy Verified 07/06/24 08:15 Review of Systems Sugical H&P ROS: Negative: Constitution, Cardiovascular, Respiratory, Neurological, Psychiatric, Hem-Onc, Allergic/Immunologic, Gastrointestinal, Genitourinary, Musculoskeletal, Integumentary, Endocrine and Eyes/Ears/Nose/Throat Exam Surgical H&P Exam: Normal: HEENT, Normal: Heart, Normal: Lungs, Normal: Extremities, Normal: Abdomen, Normal: Skin and Normal: Neurological Plan Diagnosis/Plan: Unchanged I have reviewed the history and physical and performed a pertinent physical examination on my patient. No changes have occurred unless specified. Time Spent With Patient Time: Total time managing care of this patient today ____ minutes.
[2024-07-06 08:23] LABS: UPreg QC Valid YES; Urine Pregnancy NEGATIVE (NEGATIVE)
[2024-07-06 08:30] VITALS: BP 119/76; PULSE 68; RESP 20; TEMP 37.2; O2SAT 99
--- NOTE | 2024-07-06 09:16 | W.PM.OPN ---
Operative Note Operative Note Date of Service: 07/06/24 Narrative: Procedure Description: EGD Indication: GERD, post prandial pain Anesthesia: MAC FLEXIBLE TRANSORAL UPPER GASTROINTESTINAL ENDOSCOPY UPPER ENDOSCOPY Consent: Indications for the procedure and potential complications of bleeding, perforation, reaction to medications and missed diagnosis were discussed with the patient and informed consent was obtained. Instrument: Olympus GIF H 190 J mid size upper endoscope Monitoring: Vital signs and clinical assessment, continuous EKG monitoring, Pulse oximetry, Carbon Dioxide monitoring and blood pressure monitoring were done throughout the procedure. Procedure: The patient was placed in the left lateral decubitis position and pre-procedure medications were administered and a bite block was placed. The endoscope was inserted into the mouth and advanced under direct vision to the third part of duodenum. A careful inspection was made as the upper endoscope was withdrawn including a retroflexed examination of the proximal stomach; Findings and interventions are described below. Findings: Larynx:normal Esophagus: GE junction at 40 cm, diaphragm hiatus at 40 cm, normal mucosa--bx taken from GEJ, distal and proximal areas Stomach: patchy erythema . Biopsies were obtained. Grade 2 flap valve on retroflexed examination of the cardia. Duodenum: patchy erythema possible peptic injury picture Intervention: Biopsies as noted above, Impression/Findings: gastritis duodenitis PLAN: can try high dose PPI like esomeprazole 40 mg for 3 months then titrate down depending on response, if ongoing sx then expand work up, eg. US, GES if H pylori pos then treat GERD precautions
[2024-07-06 09:21] VITALS: BP 115/78; PULSE 86; RESP 16; TEMP 36.2; O2SAT 97
[2024-07-06 09:36] VITALS: BP 104/69; PULSE 67; RESP 16; O2SAT 100
[2024-07-06 09:41] VITALS: BP 108/69; PULSE 79; RESP 16; TEMP 37.1; O2SAT 99
== END 2024-07-06 10:02 | disposition home or self-care (01) ==
PROVIDERS: Nurse Practitioner; PCP Internal Medicine; Visit Provider Internal Medicine Gastroenterology
PROC: 0DJ08ZZ Inspection of Upper Intestinal Tract, Via Natural or Artificial Opening Endoscopic (ICD-10-PCS; CPT 43235; principal; 2024-07-06 09:00)
DX: K29.60 Other gastritis without bleeding (principal); K26.9 Duodenal ulcer, unspecified as acute or chronic, without hemorrhage or perforation; K21.9 Gastro-esophageal reflux disease without esophagitis; F41.9 Anxiety disorder, unspecified; E28.2 Polycystic ovarian syndrome; F42.9 Obsessive-compulsive disorder, unspecified; E66.09 Other obesity due to excess calories; D64.9 Anemia, unspecified; Z87.891 Personal history of nicotine dependence; Z79.899 Other long term (current) drug therapy
CPT/HCPCS: 43239; 81025; 88305; 88313; 88342; J2003; J2704; J3010

== ENCOUNTER → 2024-07-06 07:14 | Outpatient (BNV) | payer OTHER, SELFPAY | PROVIDERS: PCP Internal Medicine; Visit Provider Internal Medicine Gastroenterology | DX: K21.9 Gastro-esophageal reflux disease without esophagitis (principal); R10.84 Generalized abdominal pain; K29.70 Gastritis, unspecified, without bleeding; K29.80 Duodenitis without bleeding | CPT/HCPCS: 43239 ==

== ENCOUNTER 2024-07-25 14:59 | Outpatient (AMB) | payer OTHER, SELFPAY ==
--- NOTE | 2024-07-25 15:09 | AM.OFFVISNUR ---
Intake Visit Reasons: H pylori Allergies No Known Allergies Allergy (Verified 07/06/24 08:15) Nursing Note Patient presents for collection of H Pylori breath test. Patient has been fasting for 1 hour (nothing to eat, drink, no chewing gum or smoking) has not taken any antacid medication for at least 2 weeks and has no allergies to artificial sweeteners.?? Assessment & Plan Assessment & Plan (1) Generalized abdominal pain: Code(s): R10.84 - Generalized abdominal pain Category: Medical Plan Patient presents for collection of H Pylori breath test. Patient has been fasting for 1 hour (nothing to eat, drink, no chewing gum or smoking) has not taken any antacid medication for at least 2 weeks and has no allergies to artificial sweeteners.???This test checks for an overgrowth of bacteria in your stomach. We all have bacteria but some may have more than others. It is treatable. if the test comes back negative there is nothing else to do. If the test result is positive we will treat you with 2 antibiotics and a medication to decrease the acid in your stomach (PPI) for 2 weeks. Two weeks after you have completed the treatment we will retest you to make sure the overgrowth has resolved. Patient Instructions: Process for specimen collection and reason for testing was explained to the patient. Specimen collection. Patient instructed to take a deep breath and then exhale into the blue bag, filling it up as much as possible. Patient instructed to drink a mixture of water and the artificial sweetener with a straw. A 15 minute wait period was observed. Patient instructed to take a deep breath and then exhale into the pink bag, filling it up as much as possible.?? Coding Level of Care Code Established Pt Est Pt Level 1 (01307) Patient Type Established Medical Decision Making Straight Forward Diagnoses Generalized abdominal pain R10.84
--- OUTSIDE RECORDS SUMMARY | 2024-07-25 18:04 | XMS_ITS | Clinical Summary ---
Author Organization [facility] Address [address] [place] [address] Care Team Providers Care Vice President Business Development Name Role Phone Unavailable Primary Care Provider Unavailabl e Source Comments PLEASE NOTE, if this patient is a minor, it may be UNLAWFUL to discuss sensitive information that is contained in these records (such as FAMILY PLANNING, MENTAL HEALTH or SUBSTANCE ABUSE) with the minor patient's parent or other person without the patient's specific authorization.[facility] Allergies No known active allergies Medications fluoride, sodium, (SF 5000 PLUS) 1.1 % creaIndications :Caries of enamel (incipient) [place] twice daily with toothpaste then expectorate. Do not rinse. 51 g 5 5 Active Active Problems No known active problems Encounters Date Type Department Care Team Description 07/15/2024 12:20 PM EDT Office Visit [facility] [address] [place] [phone] Shilpi Pete Caries (Primary Dx); Caries of enamel (incipient) from Last 3 Months Immunizations Immunization Administration Dates Next Due DTAP (DAPTACEL),5 PERTUSSIS [...] Sign Reading Time Taken Comments Blood Pressure 120/76 07/15/2024 12:27 PM EDT Pulse 82 07/15/2024 12:27 PM EDT Temperature 37.2 ??C (98.9 ??F) [...] Care Team (Late st Contact Info) Description 08/01/2024 4:20 PM EDT Office Visit [facility] [address] [place] [phone] Lynette DelatorreisBEN [address] [place] [address] 01/16/2025 4:20 PM EDT Office Visit [facility] [address] [place] [phone] Veronica Fernandez [address] [place] [address] Health Maintenance Due Date Last Done Comments Anxiety Screening 1995 Dental FMX/Pano 1995 Dental Perio Charting 1995 HPV Screening 1995 Hepatitis C Screening 1995 Lipid Screening 1995 Pap + HPV 1995 HIV Screening 2010 Relationship Safety Screening/Counseling 2010 Cervical Cancer Screening 2016 Pap Smear 2016 [id number]-52 ( season) 2023 Imm-Influenza (#1) 2023 05/08/2015, 12/12/2010 Alcohol and Drug Screen 04/19/2024 Depression Annual Screen 04/19/2024 Hypertension Screening (#1) 07/15/2025 Tobacco Screening 07/15/2025 07/15/2024 Dental BW 07/17/2025 07/15/2024 Dental Examination 07/17/2025 07/15/2024 Dental Prophy 07/17/2025 07/15/2024, 12/31/2023 Imm-DTaP/Tdap/Td (10 - Td or Tdap) 03/18/2032 03/18/2022, 07/19/2018, 07/18/2018, Additional history exists Imm-Hepatitis B Completed 11/28/2020, 07/19, 1995, Additional history exists Cervical Ablation/Cold-Knife Conization Discontinued Cervical Cryotherapy Discontinued Colposcopy Discontinued Endometrial Biopsy Discontinued Excision/Leep Discontinued HPV Genotyping Discontinued Vaginal Pap Discontinued Vulvoscopy Discontinued Procedures Procedure Name Priority Date/Time Associated Diagnosis Comments PERIODIC ORAL EVALUATION ESTABLISHED PATIENT Routine 07/15/2024 12:20 PM EDT Caries of enamel (incipient) Caries DENTAL CASE MANAGEMENT - MOTIVATIONAL INTV Routine 07/15/2024 12:20 PM EDT Caries of enamel (incipient) Caries PROPHYLAXIS - ADULT Routine 07/15/2024 1 2:20 PM EDT Caries of enamel (incipient) Caries BITEWINGS - FOUR RADIOGRAPHIC IMAGES Routine 07/15/2024 12:20 PM EDT Caries of enamel (incipient) Caries CARIES RISK ASSESSMENT & DOC FINDING HIGH RISK Routine 07/15/2024 12:20 PM EDT Caries of enamel (incipient) Caries NUTRITIONAL COUNSELING CONTROL OF DENTAL DISEASE Routine 07/15/2024 12:20 PM EDT Caries of enamel (incipient) Caries ORAL HYGIENE INSTRUCTIONS Routine 07/15/2024 12:20 PM EDT Caries of enamel (incipient) Caries ORAL CANCER SCREENING Routine 07/15/2024 12:20 PM EDT Caries of enamel (incipient) Caries CASE PRESENTATION SUBS DTL & EXTENSIVE TX PLN Routine 07/15/2024 12:20 PM EDT Caries Caries of enamel (incipient) COVID-19, ID NOW, BASILIO (POCT) Routine 04/26/2024 11:49 AM EST Encounter for laboratory testing for COVID-19 virus from Last 3 Months Results * COVID-19, ID NOW, BASILIO (POCT) (04/26/2024 11:49 AM EST) COVID-19 NEGATIVE NEGATIVE [facility] INTERNAL CONTROL PASS PASS [facility] PO[facility] Swab Nasal structure / Unknown 04/26/2024 11:49 AM EST us Scottie Cullen MD LAB - NO BLOOD DRAW Final Re sult [facility] from Last 3 Months Insurance [employer] [facility] [place] [facility]) Member Subscriber Plan / Payer (Ef fective 2021-Present) Name:Maisha Deluna Relation to Subscriber:Self Name:Maisha Deluna Payer ID:[id number] Type:[employer] Address: [address] [place] [id number]
== END 2024-07-25 15:11 | disposition home or self-care (01) ==
LOC: HO.HGI 14:59
PROVIDERS: PCP Internal Medicine; Visit Provider Internal Medicine Gastroenterology
DX: R10.84 Generalized abdominal pain (principal)

== ENCOUNTER 2024-07-25 14:59 | Outpatient (REF) | payer OTHER, SELFPAY ==
--- OUTSIDE RECORDS SUMMARY | 2024-07-25 18:34 | XMS_ITS | Clinical Summary ---
Author Organization [facility] Address [address] [place] [address] Care Team Providers Care Medical Coding Specialist Name Role Phone Unavailable Primary Care Provider [...] 1.1 % creaIndications :Caries of enamel (incipient) [place] twice daily with toothpaste then expectorate. Do not rinse. 51 g 5 5 Active Active Problems No known active problems Encounters Date Type Department Care Team Description 07/15/2024 12:20 PM EDT Office Visit [facility] [address] [place] [phone] Shilpi Pete Caries (Primary Dx); [...] Description 08/01/2024 4:20 PM EDT Office Visit [facility] [address] [place] [phone] Lynette DelatorreisBEN [address] [place] [address] 01/16/2025 4:20 PM EDT Office Visit [facility] [address] [place] [phone] Veronica Fernandez [address] [place] [address] Health Maintenance Due Date Last Done Comments Anxiety Screening 1995 Dental FMX/Pano 1995 Dental Perio Charting 1995 HPV Screening 1995 Hepatitis C Screening 1995 Lipid Screening 1995 Pap + HPV 1995 HIV Screening 2010 Relationship Safety Screening/Counseling 2010 Cervical Cancer Screening 2016 Pap Smear 2016 [id number] ( season) 2023 Imm-Influenza (#1) 2023 05/08/2015, [...] Last 3 Months Insurance [employer] [facility]) Member Subscriber Plan / Payer (Ef fective 2021-Present) Name:Maisha Deluna Relation to Subscriber:Self Name:Maisha Deluna Payer ID:[id number] Type:[employer] Address: [address] [place] [id number]
[2024-07-27 15:10] LABS: H Pylori Breath Test Negative (Negative)
== END 2024-07-25 15:00 | disposition home or self-care (01) ==
LOC: HO.LNP 14:59
PROVIDERS: PCP Internal Medicine; Visit Provider Internal Medicine Gastroenterology
DX: R10.84 Generalized abdominal pain (principal)
CPT/HCPCS: 83013; 99211

== ENCOUNTER 2024-08-31 09:39 | Outpatient (AMB) | payer OTHER, SELFPAY ==
--- NOTE | 2024-08-31 09:51 | A.OFFPC_ITS ---
Intake Visit Reasons: F/u Headaches Allergies No Known Allergies Allergy (Verified 08/31/24 09:51) Medication List - Last Reconciled 08/31/24 by Kenny Shin MD No Known Home Meds Tobacco use date assessed: 08/31/24 Dental Screening Dental Screen Date: 08/31/24 Did you have a dental visit in the last 12 months?: Yes Did you have a dental problem in the last 6 months where you did not have access to dental care?: No HPI F/u Headaches HPI Details History - The patient is a 29-year-old female pr esenting with hives. - The hives have been present intermitte ntly since July 04, without specific frequency. - Hives began again recently and appeare d worse on her arm yesterday, resolved then recurred on the other arm today. - The patient reports a history of hives since childhood, often triggered by certain foods. - In the past, hives occurred during pre gnancy, specifically associated with consuming seafood from a can. - The hives are described as transient a nd have not lasted this long before in her life. - The patient also presents with concern s of facial hirsutism associated with her PCOS. - She has a history of elevated androgen levels. - The patient experiences excessive faci al hair growth, which has affected her emotionally. - The patient reports weight gain concer ns following the discontinuation of Topiramate and Gabapentin. she was taking them for headaches and restless leg syndrom - She discontinued both medications due to significant weight gain - The patient's weight was 185.2 lbs in April and has increased to approximately 192 lbs. - The patient feels uncomfortable with t he weight gain and associates it with her PCOS condition. Problem List - Discontinued use of Topiramate due to weight gain - Discontinued use of Gabapentin due to weight gain - Hives (Urticaria) - Polycystic Ovary Syndrome (PCOS) - Hirsutism associated with PCOS Patient Instructions - Purchase and use Benadryl during night time to alleviate hive symptoms, as it may cause drowsiness. - Prednisone 10 mg prescribed: take as d irected, one tablet daily for five days for hives. - Seek allergy contract specialist to determine specific allergies. - Follow up with endocrinology to addres s hormonal imbalances and hirsutism. - Maintain a balanced diet and engage in regular physical exercise to manage weight. - Focus on self-care and monitor for any worsening of hives or other symptoms. Review of Systems - General: No fever no chills - Neurological: No headaches no dizziness - Ear nose throat: No sore throat no hearing difficulty no ear pain - Cardiovascular: No syncope, no chest pain, no palpitations - Gastrointestinal: No nausea vomiting or diarrhea - Endocrine: No polyuria polydipsia no heat intolerance - Genitourinary: No dysuria , no blood in urine PFSH Medical History PCOS (polycystic ovarian syndrome) Anxiety Depression Dyspepsia Difficulty sleeping Psoriasis Surgical History No pertinent past surgical history Family History Father Bipolar disorder Back problem Mother Asthma Heart problem Maternal Grandfather CVD (cardiovascular disease) Myocardial infarction Paternal Aunt Breast cancer Brother No problems noted. Sister No problems noted. Maternal Aunt Uterine cancer Ovarian cancer Other Mental health disorder Substance use disorder Social History Household Members: Significant Other Both parents involved: Yes Caregiver staying overnight: No Housing: House Are you a primary memory care program director to a significant other at home: No Do you presently have visiting nurse or other home services: No 75 years or older and lives alone: No Alcohol intake: never Patient Tobacco Use Status: Former Tobacco user e-Cigarette/Vaping Use: Never Used Substance Use Type: Marijuana Trauma History: denies Agree to transfusion: Yes service: No Current occupational status: employed 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 Morales Gutierres, Connie Goldman, Tadeo Wilson and colleagues, with an educational albert from [employer]. Physical exam (Primary Care) Tobacco/Smoking Status: Tobacco use Status Tobacco use date assessed 08/31/24 08/31/24 09:53 Patient Tobacco Use Status Former Tobacco user 08/31/24 09:53 Tobacco use type 01/18/24 14:57 e-Cigarette/Vaping Use Never Used 08/31/24 09:53 Thrive Assessment: Date of Thrive Assessment Date Thrive assessed 05/03/24 08/31/24 09:53 Telehealth Telehealth Telehealth Platform: [facility] Location of provider rendering services: practice address Location of patient: address on file Patient Identification confirmed using: Name, : Yes Telehealth method: video Patient verbally consented to treatment: Yes Patient verbally consented to billing insurance company: Yes Patient informed of any privacy concerns related to visit: Yes Minutes spent on Phone/Video with Pt.: 16 Coding Level of Care Code Tele Est Pt Level 4 (37017) Diagnoses Hives L50.9 Hirsutism L68.0 PCOS (polycystic ovarian syndrome) E28.2 Headache syndrome G44.89 Class 1 obesity due to excess calories without serious comorbidity with body mass index (BMI) of 32.0 to 32.9 in adult E66.811; E66.09; Z68.32 Obesity classification: adult class 1 (BMI 30 - 34.9) Serious obesity comorbidity presence: without serious comorbidity Body mass index: BMI 32.0-32.9 Assessment & Plan Assessment & Plan (1) Hives: Code(s): L50.9 - Urticaria, unspecified Category: Medical (2) Hirsutism: Code(s): L68.0 - Hirsutism Category: Medical (3) PCOS (polycystic ovarian syndrome): Code(s): E28.2 - Polycystic ovarian syndrome Category: Medical (4) Headache syndrome: Code(s): G44.89 - Other headache syndrome Category: Medical (5) Obesity due to excess calories: Code(s): E66.09 - Other obesity due to excess calories Category: Medical Qualifiers: Obesity classification: adult class 1 (BMI 30 - 34.9) Serious obesity comorbidity presence: without serious comorbidity Body mass index: BMI 32.0- 32.9 Qualified Code(s): E66.811 - Obesity, class 1; E66.09 - Other obesity due to excess calories; Z68.32 - Body mass index [BMI] 32.0-32.9, adult Plan History - The patient is a 29-year-old female presenting with hives. - The hives have been present intermittently since July 04, without specific frequency. - Hives began again recently and appeared worse on her arm yesterday, resolved then recurred on the other arm today. - The patient reports a history of hives since childhood, often triggered by certain foods. - In the past, hives occurred during , specifically associated with consuming seafood from a can. - The hives are described as transient and have not lasted this long before in her life. - The patient also presents with concerns of facial hirsutism associated with her PCOS. - She has a history of elevated androgen levels. - The patient experiences excessive facial hair growth, which has affected her emotionally. - The patient reports weight gain concerns following the discontinuation of Topiramate and Gabapentin. she was taking them for headaches and restless leg syndrom - She discontinued both medications due to significant weight gain - The patient's weight was 185.2 lbs in April and has increased to approximately 192 lbs. - The patient feels uncomfortable with the weight gain and associates it with her PCOS condition. Problem List - Discontinued use of Topiramate due to weight gain - Discontinued use of Gabapentin due to weight gain - Hives (Urticaria) - Polycystic Ovary Syndrome (PCOS) - Hirsutism associated with PCOS Patient Instructions - Purchase and use Benadryl during nighttime to alleviate hive symptoms, as it may cause drowsiness. - Prednisone 10 mg prescribed: take as directed, one tablet daily for five days for hives. - Seek allergy contract specialist to determine specific allergies. - Follow up with endocrinology to address hormonal imbalances and hirsutism. - Maintain a balanced diet and engage in regular physical exercise to manage weight. - Focus on self-care and monitor for any worsening of hives or other symptoms. Orders: Referrals Allergy & Immunology Referral L50.9 - Urticaria, unspecified Endocrinology Referral L68.0 - Hirsutism Medications: New prednisone 10 mg PO DAILY 5 tabs 0RF 5 days diphenhydramine HCl (Allergy (diphenhydramine)) 50 mg (2 x 25 mg) PO BEDTIME PRN 14 caps 0RF sleep
--- OUTSIDE RECORDS SUMMARY | 2024-08-31 10:31 | XMS_ITS | Clinical Summary ---
Author Organization [facility] Address [address] [place] [address] Care Team Providers Care Sprinkler Inspector Name Role Phone Unavailable Primary Care Provider [...] 1.1 % creaIndications :Caries of enamel (incipient) [place] twice daily with toothpaste then expectorate. Do not rinse. 51 g 5 5 Active Active Problems No known active problems Encounters Date Type Department Care Team Description 07/29/2024 11:20 AM EDT Office Visit [address] [phone] Christofer Delatorre DMD Caries (Primary Dx) 07/15/2024 12:20 PM EDT Office Visit [address] [phone] Shilpi Pete Caries (Primary Dx); Caries of enamel (incipient) from Last 3 Months Immunizations Immunization Administration Dates Next Due DTAP (DAPTACEL),5 PERTUSSIS ANTIGENS 12/2000,12/13/1997,01/19/1996,11/08,1995 Flu, Preservative Free 05/08/2015 HEP B, PED/ADOL 08/14/1996,1995,1995 HPV, QUADRIVALENT 10/31/2008,04/30/2008,01/20/20 07 Hep A, Ped/adol, 2 Dose 09/26/2013 Hep B,adult,adjuvanted (HEPLISAV) 11/28/2020 Hib (HbOC) 12/13/1997, 6,1995,08/19 INFLUENZA, SEASONAL, INJECTABLE 12/12/2010 IPV (IPOL) 04/27/2000 MENINGOCOCCAL MCV4P (MENACTRA) 01/19/2007 MMR (MMR II/Priorix) 11/26/2020,04/27/2000,08/14 OPV, Trivalent 08/14/1996,1995,1995 PPD 10/27/2023,11/25/2022 TDAP 07/19/2018,01/19/2007 Td(adult),2 Lf tetanus toxoid,preservative free 07/18/2018 Varicella (Varivax), Live Vaccine 10/31/2008, Social History Tobacco Use Types Packs/Day Years [...] Care Team (Late st Contact Info) Description 01/16/2025 4:20 PM EDT Office Visit [facility] [address] [place] [phone] Veronica Fernandez [address] [place] [address] Health Maintenance Due Date Last Done Comments Anxiety Screening 1995 Dental FMX/Pano 1995 Dental Perio Charting 1995 HPV Screening 1995 Hepatitis C Screening 1995 Lipid Screening 1995 Pap + HPV 1995 HIV Screening 2010 Relationship Safety Screening/Counseling 2010 Cervical Cancer Screening 2016 Pap Smear 2016 [id number] ( season) 2023 Imm-Influenza (#1) 2023 05/08/2015, [...] Procedure Name Priority Date/Time Associated Diagnosis Comments 12 DO RESIN-BASED COMPOSITE - TWO SURFACES POSTERIOR Routine 07/29/2024 11:20 AM EDT Caries CASE PRESENTATION SUBS DTL & EXTENSIVE TX PLN Routine 07/29/2024 11:20 AM EDT Caries PERIODIC ORAL EVALUATION ESTABLISHED PATIENT Routine 07/15/2024 [...] PM EDT Caries Caries of enamel (incipient) from Last 3 Months Insurance [employer] [facility] Member Subscriber Plan / Payer (Ef fective 2023-Present) Name:Maisha Deluna Relation to Subscriber:Self Name:Maisha Deluna Payer ID:[id number] Group ID:Not on file Type:Donn Address: [facility] [id number] [address]) Member Subscriber Plan / Payer (Ef fective 2021-Present) Name:Maisha Deluna Relation to Subscriber:Self Name:Maisha Deluna Payer ID:[id number] Type:Indemnity Address: [address] [place] [address]
== END 2024-08-31 10:21 | disposition home or self-care (01) ==
LOC: HO.HMCC 09:39
PROVIDERS: PCP Internal Medicine; Visit Provider Internal Medicine
DX: L50.9 Urticaria, unspecified (principal); L68.0 Hirsutism; E28.2 Polycystic ovarian syndrome; G44.89 Other headache syndrome; E66.811 Obesity, class 1; E66.09 Other obesity due to excess calories; Z68.32 Body mass index [BMI] 32.0-32.9, adult

== ENCOUNTER → 2024-08-31 09:39 | Outpatient (BNVA) | payer OTHER, SELFPAY | PROVIDERS: PCP Internal Medicine; Visit Provider Internal Medicine | DX: Z13.89 Encounter for screening for other disorder (principal) ==

== ENCOUNTER 2024-10-12 07:39 | Outpatient (AMB) | payer OTHER, SELFPAY ==
[2024-10-12 07:42] VITALS: BP 98/68; PULSE 66; O2SAT 96; BMI 34.2
--- NOTE | 2024-10-12 07:42 | A.OFFVIS_ITS ---
Vital Signs 10/12/24 07:42 Height 5 ft 3 in Weight 193 lb 5.526 oz BMI 34.2 BP 98/68 Blood Pressure Location Lt brachial Position Sitting Pulse 66 Pulse Source Pulse Oximeter Pulse Oximetry (%) 96 Oxygen Delivery Method Room Air Intake Visit Reasons: Hirsutism Intake Note: New patient present today for Hirsutism. Commercial Sales Specialist Required: No Accompanied by: Self / Same As Patient Allergies No Known Allergies Allergy (Verified 10/12/24 07:53) Medication List - Last Reconciled 10/12/24 by Jess Moran MD diphenhydramine HCl (Allergy (diphenhydramine)) 50 mg (2 x 25 mg) PO BEDTIME PRN spironolactone 50 mg PO DAILY HPI Comments Details: 29-year-old female coming in today for initial evaluation of hirsutism in the setting of PCOS. Also here for obesity. PCOS diagnosed in her teens. Was having irregular periods at that time. had transvaginal US whihc showed polycystic ovaries and blood work showed elevated androgens per patient. presents with complaints of hirsutism, acne, crown hair loss. She has no history of HTN, prediabetes. Does have hyperlipidemia Hirsutism :mostly facial hair bothersome Menarche:11 years, started getting irregular in later teens LMP:September 25 2024, had a period in August as well, skipped July, periods were regular for a year after giving , Jun 03 2022. history: , has one child aged 2, normal vaginal delivery, no complications, baby boy, was trying for 9 years , but no assisted reprodutive methods done, natural conception. Medications: Spironolactone 50 mg daily, was only on OCPs 13 to15 years old for control Diet: BF : green tea with fruit, or oatmeal with banana nuts or waffles store bought Lunch: snack apple, salads home made with caeser dressing Snack on cookies and peanuts Dinner: this unity balance drink Exercise:none Weight Trend:193 lbs , highest weight for her, used to be 150 lbs before Medical therapies: OCP, spironolactone, metformin, incretin therapy Cosmetic therapies: Laser hair removal, shaving, threading, plucking Sexually active , aware of teratogenic effects of spironolactone but not using condoms or any OCPs. 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 No alcohol use Smokes marijuana no tobacco smoking Physical exam General: sitting comfortably in no acute distress HEENT: normocephalic/atraumatic, does have excessive hair on chin, sideburns, facial hair Neck: supple, enlarged thyroid gland Cardiac: normal heart sounds Pulm: normal breath sounds B/L, no added breath sounds Abd: not distended, no tenderness Extremities: no edema, no signs of myxedema Neuro: AAO x3, Speech: normal, no facial droop, moving all 4 extremities Laboratory Tests 11/17/23 05/24/24 08:57 14:41 AST 16 ALT 16 Triglycerides 92 Cholesterol 165 LDL Cholesterol, Calc 109 H HDL Cholesterol 38 L TSH 0.34 Beta HCG, Quant < 2 PFSH Medical History PCOS (polycystic ovarian syndrome) Anxiety Depression Dyspepsia Difficulty sleeping Psoriasis Surgical History No pertinent past surgical history Family History Father Bipolar disorder Back problem Mother Asthma Heart problem Maternal Grandfather CVD (cardiovascular disease) Myocardial infarction Paternal Aunt Breast cancer Brother No problems noted. Sister No problems noted. Maternal Aunt Uterine cancer Ovarian cancer Other Mental health disorder Substance use disorder Social History Household Members: Significant Other Both parents involved: Yes Caregiver staying overnight: No Housing: House Are you a primary child care education coordinator to a significant other at home: No Do you presently have visiting nurse or other home services: No 75 years or older and lives alone: No Alcohol intake: never Patient Tobacco Use Status: Former Tobacco user e-Cigarette/Vaping Use: Never Used Substance Use Type: Marijuana Trauma History: denies Agree to transfusion: Yes service: No Current occupational status: employed 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 Most bothersome features show her are obesity and hirsutism. She has had 1 spontaneous in 2022. Did not require assisted reproductive help. However has a history of infertility and was trying to get for 9 years. I reviewed with the patient the implications of polycystic ovarian syndrome in terms of 1) reproductive health (increased risk of infertity, miscarriage), 2) metabolic issues (type 2 diabetes, hypertension, dyslipidemia, cardiovascular disease) and 3) hyperandrogenism (acne, hirsuitism, male pattern hair loss). We reviewed that weight loss in overweight woman can help improve these morbidities, but often woman with PCOS do need further assistance with fertility using metformin plus clomiphene or letrazole. At this time she is not interested in a 2nd . However she is sexually active and not on any contraceptive methods. She skips a period once a month here and there, however at least has 8-10 cycles per year. She was started on spironolactone about a week ago 50 mg daily by multiple effect evaporator operator for hirsutism, blood pressure is on the lower side but she is tolerating it well. At this time I told her she can continue on the spironolactone but discussed with her importance of contraception valentin while being on this medication as it is teratogenic and can cause congenital anomalies in male fetus. Also discussed side effects of kidney and liver toxicity. We will check a BMP , I have asked her to do this once she has been on the medication for 2 weeks. She is very bothered by the hirsutism and with that is 1 of her main goals. She is getting laser therapy, as well as doing threading and plucking, plus some shaving. At this time I will also repeat her testosterone levels, screen for CAH with 17 hydroxyprogesterone level. This is to ensure there is no other causes of the hirsutism besides the PCOS which is a diagnosis of exclusion. No change in ring size or shoe size, does not have any acromegalic features. No easy bruising, no proximal muscle weakness, no purple abdominal striae, at this time I am not suspecting hypercortisolism, we will check a baseline cortisol and ACTH but no need for doing 24 hour urine cortisol right now. Plan: -continue spironolactone 50 mg daily -ordered BMP, testosterone, 17 hydroxyprogesterone, DHEA-S, androstenedione, S HBG, -ordered A1c and lipid panel to screen for diabetes and follow up on her hyperlipidemia -and those spironolactone can affect the testosterone levels, we will still check them at this time. -after doing blood work start Ari daily, this is an anti androgenic oral contraceptive pill. will help with both hirsutism as well as providing contraception while she is on spironolactone. -discussed lifestyle modification for weight loss, see below -referral to senior application programmer placed -continue cosmetic measures for hirsutism -follow up in 5 weeks to discuss results (2) Obesity due to excess calories: Code(s): E66.09 - Other obesity due to excess calories Category: Medical Qualifiers: Obesity classification: adult class 1 (BMI 30 - 34.9) Serious obesity comorbidity presence: without serious comorbidity Body mass index: BMI 32.0- 32.9 Qualified Code(s): E66.811 - Obesity, class 1; E66.09 - Other obesity due to excess calories; Z68.32 - Body mass index [BMI] 32.0-32.9, adult Plan: Current BMI 34.2 kg per m2, current weight 193 lb, has been unable to lose weight since giving . She used to be 150 lb prior to . I reviewed with patient the importance of weight loss as it relates to decreasing the risk of diabetes, cardiovascular disease, obstructive sleep apnea,PCOS, arthritis. We reviewed the importance of decreasing total calorie consumption, minimizing fats and carbohydrates. We discussed importance of seeing a senior application programmer to follow a diet plan, we will place nutrition referral. She was advised to start exercising 30-45 mins a day Plan: -Lifestyle modification done, given an exercise plan as well as nutrition referral placed -no acromegalic or cushingoid features (3) Thyromegaly: Code(s): E01.0 - Iodine-deficiency related diffuse (endemic) goiter Category: Medical Plan: Noticed to have a prominent thyroid gland on exam, we will check with the ultrasound of the thyroid. Plan: -ordered ultrasound of the thyroid Plan I spent 60 minutes in reviewing the record, seeing the patient and documenting in the medical record. Orders: Orders DHEA Sulfate Today E28.2 - Polycystic ovarian syndrome, E66.09 - Other obesity due to excess calories, E66.811 - Obesity, class 1, Z68.32 - Body mass index [BMI] 32.0-32.9, adult Cortisol Random Today E28.2 - Polycystic ovarian syndrome, E66.09 - Other o besity due to excess calories, E66.811 - Obesity, class 1, Z68.32 - Body mass index [BMI] 32.0-32.9, adult 17 Hydroxyprogesterone Today E28.2 - Polycystic ovarian syndrome, E66.09 - Other obesity due to excess calories, E66.811 - Obesity, class 1, Z68.32 - Body mass index [BMI] 32.0-32.9, adult Aspartate Amino Transferase Today E28.2 - Polycystic ovarian syndrome, E66.09 - Other obesity due to excess calories, E66.811 - Obesity, class 1, Z68.32 - Body mass index [BMI] 32.0-32.9, adult Alanine Aminotransferase Today E28.2 - Polycystic ovarian syndrome, E66.09 - Other obesity due to excess calories, E66.811 - Obesity, class 1, Z68.32 - Body mass index [BMI] 32.0-32.9, adult Lipid Panel Today E28.2 - Polycystic ovarian syndrome, E66.09 - Other obesity due to excess calories, E66.811 - Obesity, class 1, Z68.32 - Body mass index [BMI] 32.0-32.9, adult Hemoglobin A1c Today E28.2 - Polycystic ovarian syndrome, E66.09 - Other obesity due to excess calories, E66.811 - Obesity, class 1, Z68.32 - Body mass index [BMI] 32.0-32.9, adult US thyroid Today E01.0 - Iodine-deficiency related diffuse (endemic) goiter Testosterone, Free/Total Today E28.2 - Polycystic ovarian syndrome, E66.09 - Other obesity due to excess calories, E66.811 - Obesity, class 1, L68.0 - Hirsutism, Z68.32 - Body mass index [BMI] 32.0-32.9, adult Adrenocorticotropic Hormone Today E28.2 - Polycystic ovarian syndrome, E66.09 - Other obesity due to excess calories, E66.811 - Obesity, class 1, Z68.32 - Body mass index [BMI] 32.0-32.9, adult Basic Metabolic Panel Today E28.2 - Polycystic ovarian syndrome, E66.09 - Other obesity due to excess calories, E66.811 - Obesity, class 1, Z68.32 - Body mass index [BMI] 32.0-32.9, adult Androstenedione Today E28.2 - Polycystic ovarian syndrome, E66.09 - Other obesity due to excess calories, E66.811 - Obesity, class 1, Z68.32 - Body mass index [BMI] 32.0-32.9, adult Sex Hormone Binding Globulin Today E28.2 - Polycystic ovarian syndrome, E66.09 - Other obesity due to excess calories, E66.811 - Obesity, class 1, Z68.32 - Body mass index [BMI] 32.0-32.9, adult Referrals Nutrition/Dietitian Referral E28.2 - Polycystic ovarian syndrome, E66.09 - Other obesity due to excess calories, E66.811 - Obesity, class 1, Z68.32 - Body mass index [BMI] 32.0-32.9, adult Medications: New drospirenone-ethinyl estradiol 3-0.02 mg (ARI (28)) 1 tab PO DAILY 28 tabs 3RF Patient Instructions: Continue spironolactone 50 mg daily Do fasting 8 AM blood work in 2 weeks After the blood work is done start Ari OCP daily , in the meatime please either do abstinence or use condoms See the senior application programmer Exercise 30 mins 5 days a week with treadmill at least work up to speed 4.7 , and if you are jus twalking on treadmill add some inclination /resistance Try adding weights to your regimen 2-3 days a week Weight loss counselling ? Limit added sugars to less than 25 grams daily. There are 4.2 grams of sugar per teaspoon of sugar. A teaspoon of honey has 6 grams of sugar! Bread also can have more sugar than you think-check labels ? No soda or juices. Drink water, unsweetened iced tea or seltzer ? Limit eating out/take out or prepared meals to twice weekly at most ? Avoid red meat, hot dogs, worley and deli meat. Substitute plant protein for animal protein as much as you can. Beans, nuts, tofu, soy milk ? Limit cheese to 1 ounce a few times weekly ? Eat high fiber foods like beans, apples and green veggies, salsa is a great snack with whole grain cracker like Wasa ? Look for the whole grain stamp when choosing bread etc. Aim for 48 grams of whole grains daily. Whole wheat does not equal whole grains! ? Don't keep tempting treats in the house. Go out once in a while for a treat. ? Don't eat anything deep fried or cream based-no sour cream Do ultrasound of the thyroid ,someone will call you to schedule this Coding Level of Care Code New Pt Level 5 (95698) Diagnoses PCOS (polycystic ovarian syndrome) E28.2 Class 1 obesity due to excess calories without serious comorbidity with body mass index (BMI) of 32.0 to 32.9 in adult E66.811; E66.09; Z68.32 Obesity classification: adult class 1 (BMI 30 - 34.9) Serious obesity comorbidity presence: without serious comorbidity Body mass index: BMI 32.0-32.9 Thyromegaly E01.0 Time Spent (min) 60
--- OUTSIDE RECORDS SUMMARY | 2024-10-12 07:43 | XMS_ITS | Clinical Summary ---
Author Organization [facility] Address [address] [place] [address] Care Team Providers Care Physician Representative Name Role Phone Unavailable Primary Care Provider [...] 1.1 % creaIndications :Caries of enamel (incipient) [place] twice daily with toothpaste then expectorate. Do not rinse. 51 g 5 5 Active Active Problems No known active problems Encounters Date Type Department Care Team Description 07/29/2024 11:20 AM EDT Office Visit [address] [phone] Christofer Delatorre DMD 07/15/2024 12:20 PM EDT Office Visit [address] [phone] Shilpi Pete from Last 3 Months Immunizations Immunization Administration [...] 82 07/15/2024 12:27 PM EDT Temperature 37.2 C (98.9 F) 11/19/2023 9:04 AM EDT Respiratory Rate 16 11/19/2023 9:04 AM EDT [...] Description 01/16/2025 4:20 PM EDT Office Visit [facility] [address] [place] [phone] Jim Veronica [address] [place] [address] Health Maintenance Due Date Last Done Comments Anxiety Screening 1995 Dental FMX/Pano 1995 Dental Perio Charting 1995 HPV Screening 1995 Hepatitis C Screening 1995 Lipid Screening 1995 Pap + HPV 1995 HIV Screening 2010 Relationship Safety Screening/Counseling 2010 Cervical Cancer Screening 2016 Pap Smear 2016 [id number] ( season) 2023 Alcohol and Drug Screen 04/19/2024 Depression Annual Screen 04/19/2024 Imm-Influenza (Season Ended) 2024 05/08/2015, 12/12/2010 Hypertension Screening (#1) 07/15/2025 Tobacco Screening 07/15/2025 [...] enamel (incipient) from Last 3 Months Insurance BCBS DENTAL [facility] [address] [facility]) Member Subscriber Plan / Payer (Ef fective 2021-Present) Name:Maisha Deluna Relation to Subscriber:Self Name:Maisha Deluna Payer ID:[id number] Type:Indemnity Address: [address] [place], [place] [id number]
== END 2024-10-12 08:33 | disposition home or self-care (01) ==
LOC: HO.ENCR 07:40
PROVIDERS: PCP Internal Medicine; Visit Provider Student in an Organized Health Care Education/Training Program
DX: E28.2 Polycystic ovarian syndrome (principal); E66.811 Obesity, class 1; E66.09 Other obesity due to excess calories; Z68.32 Body mass index [BMI] 32.0-32.9, adult; E01.0 Iodine-deficiency related diffuse (endemic) goiter
CPT/HCPCS: 99205

== ENCOUNTER 2024-11-28 15:41 | Outpatient (REF) | payer OTHER, SELFPAY ==
--- NOTE | ~2024-11-28 | US_ITS ---
EXAMINATION: US THYROID CLINICAL INFORMATION: Addendum urgency related diffuse endometrial goiter COMPARISON: None available. TECHNIQUE: Linear transducer grayscale and color Doppler examination with attention to the region of the thyroid. FINDINGS: SIZE: Measurements of the thyroid lobes and nodules are given in sagittal, anteroposterior and transverse dimensions respectively. Right Thyroid Lobe: 5.7 x 1.7 x 1.5 cm, volume 8 mL. Parenchyma: The gland echotexture is homogeneous. Thyroid vascularity is normal. Left Thyroid Lobe: 5.5 x 1.5 x 2.0 cm, volume 8.0 mL. Parenchyma: The gland echotexture is homogeneous. Thyroid vascularity is normal. Isthmus: 0.3 cm in maximum AP dimension. Estimated total number of nodules greater than or equal to 1 cm: 0. Data Collector nodules are described as follows: 1. Location: Left midpole. Size: 0.8 x 0.3 x 0.4 cm, volume 0.0 x 6 mL. Nodule characteristics: Composition: Solid (2). Echogenicity: Hyperechoic (1). Shape: Wider than taller Margins: Smooth (0). Echogenic Foci: None (0). ACR TI-RADS total points: 4 ACR TI-RADS category: 4 NODES: No lymphadenopathy is seen in the tissue surrounding the thyroid gland. US/US thyroid IMPRESSION: Symmetrical normal pulmonary thyroid lobe with a solitary subcentimeter nonsuspicious nodule left midpole. ACR TI-RADS RECOMMENDATION REFERENCE: Ultrasound-guided fine-needle aspiration, followup ultrasound, no further follow up. * TR1 (0 point) and TR2 (2 points): No FNA or follow up. * TR3 (3 points): FNA if more than or equal to 2.5 cm in maximum dimension, followup ultrasound in 1, 3 and 5 years if 1.5 to 2.4 cm in maximum dimension. * TR4 (4-6 points): FNA if more than or equal to 1.5 cm in maximum dimension, followup ultrasound in 1, 2, 3 and 5 years if 1 to 1.4 cm in maximum dimension. * TR5 (more than or equal to 7 points): FNA if more than or equal to 1 cm in maximum dimension, followup ultrasound every year for 5 years if 0.5 to 0.9 cm in maximum dimension. * TR3, TR4 or TR5 nodules that are below the size threshold for followup receive no follow up. Electronically signed by: Aj Darden MD 11/29/2024 07:14 AM EDT RP
--- OUTSIDE RECORDS SUMMARY | 2024-11-28 16:25 | XMS_ITS | Clinical Summary ---
Author Organization [facility] Address [address] [place] [address] Care Team Providers Care Field Attendant Name Role Phone Unavailable Primary Care Provider [...] 1.1 % creaIndications :Caries of enamel (incipient) [place] twice daily with toothpaste then expectorate. Do not rinse. 51 g 5 5 Active Active Problems No known active problems Encounters Date Type Department Care Team Description 11/01/2024 7:55 AM EDT Immunizations [facility] [address] [place] [phone] from Last 3 Months Immunizations Immunization Administration Dates Next Due DTAP (DAPTACEL),5 PERTUSSIS ANTIGENS 12/2000,12/13/1997,01/19/1996,11/08,1995 Flu, Preservative Free 05/08/2015 HEP B, PED/ADOL (SKYOJKZ-G-YTAB/RECOMBIVAX-PEDS) 08/14/1996,1995,1995 HPV, QUADRIVALENT 10/31/2008,04/30/2008,01/20/20 07 Hep A, Ped/adol, 2 Dose 09/26/2013 Hep B,adult,adjuvanted (HEPLISAV) 11/28/2020 Hib (HbOC) 12/13/1997, 6,1995,08/19 INFLUENZA, SEASONAL, INJECTABLE 12/12/2010 IPV (IPOL) 04/27/2000 MENINGOCOCCAL MCV4P (MENACTRA) 01/19/2007 MMR (MMR II/Priorix) 11/26/2020,04/27/2000,08/14 OPV, Trivalent 08/14/1996,1995,1995 PPD 11/01/2024,10/27/2023,11/25/2022 TDAP 07/19/2018,01/19/2007 Td (adult),2 Lf tetanus toxo id (TDVAX), preservative free 07/18/2018 Varicella (Varivax), Live Vaccine 10/31/2008, [...] Upcoming Encounters Date Type Department Care Team ([facility] st Contact Info) Description 01/16/2025 4:20 PM EDT Office Visit [facility] [address] [place] [phone] Veronica Fernandez [address] [place] [address] Health Maintenance Due Date Last Done Comments Anxiety Screening 1995 Dental FMX/Pano 1995 Dental Perio Charting 1995 HPV Screening 1995 Hepatitis C Screening 1995 Pap + HPV 1995 HIV Screening 2010 Relationship Safety Screening/Counseling 2010 Cervical Cancer Screening 2016 Pap Smear 2016 [id number] ( season) 2023 Alcohol and Drug Screen 04/19/2024 Depression Annual Screen 04/19/2024 Imm-Influenza (#1) 2024 05/08/2015, 12/12/2010 Tobacco Screening 07/15/2025 07/15/2024 Dental BW 07/17/2025 07/15/2024 Dental Examination 07/17/2025 07/15/2024 Dental Prophy 07/17/2025 07/15/2024, 12/31/2023 Hypertension Screening (#1) 07/15/2027 Imm-DTaP/Tdap/Td (10 - Td or Tdap) 03/18/2032 03/18/2022, 07/19/2018, 07/18/2018, Additional history exists Imm-Hepatitis B Completed 11/28/2020, 07/19, 1995, Additional history exists Cervical Ablation/Cold-Knife Conization Discontinued Cervical Cryotherapy Discontinued Colposcopy Discontinued Endometrial Biopsy Discontinued Excision/Leep Discontinued HPV Genotyping Discontinued Vaginal Pap Discontinued Vulvoscopy Discontinued Procedures Procedure Name Priority Date/Time Associated Diagnosis Comments BITEWINGS - FOUR RADIOGRAPHIC IMAGES Routine 07/15/2024 12:20 PM EDT Caries of enamel (incipient) Caries PROPHYLAXIS - ADULT Routine 07/15/2024 1 2:20 PM EDT Caries of enamel (incipient) Caries PERIODIC ORAL EVALUATION ESTABLISHED PATIENT Routine 07/15/2024 12:20 PM EDT Caries of enamel (incipient) Caries from Last 3 Months or Most Recently Relevant to Health Maintenance Insurance BC DENTAL [facility] [place] [place] [address]) Member Subscriber Plan / Payer ( fective 2021-Present) Name:Maisha Deluna Relation to Subscriber:Self Name:Mikie Maisha Payer ID:[id number] Type:[employer] Address: [address] [place] [id number]
== END 2024-11-28 15:42 | disposition home or self-care (01) ==
LOC: HO.US 15:41
PROVIDERS: PCP Internal Medicine; Visit Provider Student in an Organized Health Care Education/Training Program
DX: E01.0 Iodine-deficiency related diffuse (endemic) goiter (principal)
CPT/HCPCS: 76536

== ENCOUNTER → 2024-11-28 15:45 | Outpatient (BNV) | payer OTHER, SELFPAY | PROVIDERS: PCP Internal Medicine; Visit Provider Radiology Diagnostic Radiology | DX: E04.1 Nontoxic single thyroid nodule (principal) | CPT/HCPCS: 76536 ==

== ENCOUNTER 2024-11-29 08:27 | Outpatient (AMB) | payer OTHER, SELFPAY ==
[2024-11-29 08:30] VITALS: BP 108/72; PULSE 73; O2SAT 98; BMI 32.8
--- NOTE | 2024-11-29 08:30 | A.OFFPC_ITS ---
Vital Signs 11/29/24 08:30 Height 5 ft 3 in Weight 185 lb BMI 32.8 BP 108/72 Blood Pressure Location Lt brachial Position Sitting Pulse 73 Pulse Source Pulse Oximeter Pulse Oximetry (%) 98 Oxygen Delivery Method Room Air Intake Visit Reasons: annual exam Allergies No Known Allergies Allergy (Verified 11/29/24 08:31) Medication List - Last Reconciled 11/29/24 by Kenny Shin MD drospirenone-ethinyl estradiol 3-0.02 mg (ARI (28)) 1 tab PO DAILY spironolactone 50 mg PO DAILY Tobacco use date assessed: 08/31/24 Dental Screening Dental Screen Date: 08/31/24 HPI annual exam HPI Details History of Present Illness The patient is a 29-year-old female came in for physical examination and would like to have STD check Sexually Transmitted Infection (STI) Screening: - The patient seeks STI screening as she resumed a relationship with her boyfriend and engages in unprotected intercourse. - Requests both swab and blood tests, ac knowledging the risk of infections such as Chlamydia and HIV, despite lacking symptoms. Psoriasis: - The patient's psoriasis has worsened r ecently. - In the past, she managed with a prescr ibed cream, but now feels it?s insufficient. - She reports using up the cream and radha ires a stronger treatment. Patient is established with Dermatology and has appointment coming up in few days Thyroid Nodule: - An ultrasound for thyroid was conducte d yesterday. - The patient is under endocrinological care but has not recently completed all lab work. Weight Management Issues: - Engaged with an packing machine inspector for we ight management. - Referred to a branch officer to demonstr ate effort in lifestyle changes before medication for weight loss is considered. Obesity with BMI of 32.8 Health Maintenance - Recent thyroid ultrasound: a small nod ule, deemed non-suspicious. - Tetanus vaccination updated as of 2021 . [place] of Care - Community Health Education Coordinator for thyroid and weight management. - Strategic Planning Specialist for psoriasis treatment. - Guitar Teacher for diet and lifestyle larisa rehman. - Annual visit scheduled with BARREL ASSEMBLER. Patient Instructions - Complete the STI tests (both blood and swab) as discussed. - Continue fasting for lab work associat ed with the blood test. - Consider discussing stronger psoriasis treatment with the harness puller during the upcoming appointment. Follow-up 1 year physical exam Review of Systems - General: No fever no chills - Neurological: No headaches no dizzin ess - Ear nose throat: No sore throat no hearing difficulty no ear pain - Cardiovascular: No syncope, no chest pain, no palpitations - Gastrointestinal: No nausea vomiting or diarrhea - Endocrine: No polyuria polydipsia no heat intolerance - Genitourinary: No dysuria Physical Exam General: Cooperative, healthy appearing, comfortable, no acute distress Orientation: Patient oriented x3 Head: Normal to inspection Ears: Within normal limit visually Nose: Normal external nose present Face and sinus: Normal facial exam Eyes: Appearance normal, extraocular movement intact pupils reactive Neck: Normal visual inspection and supple Respiratory: Normal respiratory effort and able to speak in complete sentences. Clear to auscultation, no stridor Cardiovascular: S1 and S2 RRR Breast exam through OBGYN GI: Normal to inspection. Soft to palpation and nontender Skin: Turgor normal, no acute findings Neuro: Patient oriented x3, motor sensory intact, balance intact, tandem pass Extremities: Normal to inspection, full range of motion [facility] Medical History Thyromegaly PCOS (polycystic ovarian syndrome) Anxiety Depression Dyspepsia Difficulty sleeping Psoriasis Surgical History No pertinent past surgical history Family History Father Bipolar disorder Back problem Mother Asthma Heart problem Maternal Grandfather CVD (cardiovascular disease) Myocardial infarction Paternal Aunt Breast cancer Brother No problems noted. Sister No problems noted. Maternal Aunt Uterine cancer Ovarian cancer Other Mental health disorder Substance use disorder Social History Household Members: Significant Other Both parents involved: Yes Caregiver staying overnight: No Housing: House Are you a primary care asst to a significant other at home: No Do you presently have visiting nurse or other home services: No 75 years or older and lives alone: No Alcohol intake: never Patient Tobacco Use Status: Former Tobacco user e-Cigarette/Vaping Use: Never Used Substance Use Type: Marijuana Trauma History: denies Agree to transfusion: Yes service: No Current occupational status: employed 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 1. Little interest or pleasure in doing things: several days 2. Feeling down, depressed, or hopeless: not at all 3. Trouble falling or staying asleep, or sleeping too much: not at all 4. Feeling tired or having little energy: several days 5. Poor appetite or overeating: more than half the days 6. Feeling bad about yourself - or that you are a failure or have let yourself or your family down: not at all 7. Trouble concentrating on things, such as reading the newspaper or watching television: several days 8. Moving or speaking so slowly that other people could have noticed. Or the opposite - being so fidgety or restless that you have been moving around a lot more than usual: not at all 9. Thoughts that you would be better off or of hurting yourself in some way: not at all Total score: 5 Depression Screening Interpretation: Negative Depression Screening Done: Yes [id number] - PHQ-9 Billing: Yes Source: Developed by Drs. Morales Gutierres, Connie Goldman, Tadeo Wilson and colleagues, with an educational albert from [employer]. Thrive Questionnaire Date Thrive assessed: 11/29/24 I am a: Patient What is your living situation today?: I have a steady place to live Within the past 12 months, did the food you bought not last and you didn't have the money to get more?: Sometimes True Within the past 12 months, did you worry whether your food would run out before you got money to buy more?: Never true Do you have trouble paying for medicines?: I choose not to answer this question Do you have trouble getting transportation to medical appointments?: No Do you have trouble paying your heating and electricity bill?: Yes Do you have trouble taking care of your child, family member or friend?: No Do you have trouble with day-to-day activities such as bathing, preparing meals, shopping, managing finances, etc.?: No Are you currently unemployed and looking for a job?: No Are you interested in more education?: No Please select the resources that you would like help with: None Currently or been in a relationship where the following occur: I choose not to answer THRIVE Score: 2 LUCIE-7 AMB Questionnaire LUCIE-7 Date LUCIE - 7 assessed: 05/03/24 Source: Developed by Drs. Morales Gutierres, Connie Goldman, Tadeo Wilson and colleagues, with an educational ablert from [employer]. Physical exam (Primary Care) Vital Signs: Last Vital Signs Pulse 73 11/29/24 08:30 BP 108/72 11/29/24 08:30 Pulse Ox 98 11/29/24 08:30 Oxygen Delivery Method Room Air 11/29/24 08:30 BMI result Body Mass Index 32.8 Tobacco/Smoking Status: Tobacco use Status Tobacco use date assessed 08/31/24 11/29/24 08:37 Patient Tobacco Use Status Former Tobacco user 11/29/24 08:37 Tobacco use type 10/18/24 15:28 e-Cigarette/Vaping Use Never Used 11/29/24 08:37 PHQ-9: PHQ-9 Score PHQ-9: Total score 5 11/29/24 08:54 Depression Screening Interpretation: Negative Thrive Assessment: Date of Thrive Assessment Date Thrive assessed 11/29/24 11/29/24 08:37 Currently or been in a relationship where the following occur: I choose not to answer Coding Level of Care Code Est Pt Level 3 (37005) Est Pt Prev Care 18-39y(99302) Diagnoses Encounter for general adult medical examination with abnormal findings Z00.01 Acute vaginitis N76.0 Chronicity: acute Other hemorrhoids K64.8 Hemorrhoid type: other Vitamin D deficiency E55.9 PCOS (polycystic ovarian syndrome) E28.2 Severe episode of recurrent major depressive disorder, without psychotic features F33.2 Psychotic features: without psychotic features Other obsessive-compulsive disorders F42.8 Obsessive-compulsive disorder type: other Anxiety, generalized F41.1 Class 1 obesity due to excess calories without serious comorbidity with body mass index (BMI) of 32.0 to 32.9 in adult E66.811; E66.09; Z68.32 Body mass index: BMI 32.0-32.9 Obesity classification: adult class 1 (BMI 30 - 34.9) Serious obesity comorbidity presence: without serious comorbidity Encounter for screening examination for sexually transmitted disease Z11.3 Additional Codes PHQ-9 - 32188 - PHQ-9 Billing: Yes ([id number]) Assessment & Plan Assessment & Plan (1) Encounter for general adult medical examination with abnormal findings: Code(s): Z00.01 - Encounter for general adult medical examination with abnormal findings Category: Medical (2) Vaginitis: Code(s): N76.0 - Acute vaginitis Category: Medical Qualifiers: Chronicity: acute Qualified Code(s): N76.0 - Acute vaginitis (3) Hemorrhoid: Code(s): K64.9 - Unspecified hemorrhoids Category: Medical Qualifiers: Hemorrhoid type: other Qualified Code(s): K64.8 - Other hemorrhoids (4) Vitamin D deficiency: Code(s): E55.9 - Vitamin D deficiency, unspecified Category: Medical (5) PCOS (polycystic ovarian syndrome): Code(s): E28.2 - Polycystic ovarian syndrome Category: Medical (6) Depression, major, severe recurrence: Code(s): F33.2 - Major depressive disorder, recurrent severe without psychotic features Category: Medical Qualifiers: Psychotic features: without psychotic features Qualified Code(s): F33.2 - Major depressive disorder, recurrent severe without psychotic features (7) OCD (obsessive compulsive disorder): Code(s): F42.9 - Obsessive-compulsive disorder, unspecified Category: Medical Qualifiers: Obsessive-compulsive disorder type: other Qualified Code(s): F42.8 - Other obsessive-compulsive disorder (8) Anxiety, generalized: Code(s): F41.1 - Generalized anxiety disorder Category: Medical (9) Obesity due to excess calories: Code(s): E66.09 - Other obesity due to excess calories Category: Medical Qualifiers: Body mass index: BMI 32.0-32.9 Obesity classification: adult class 1 (BMI 30 - 34.9) Serious obesity comorbidity presence: without serious comorbidity Qualified Code(s): E66.811 - Obesity, class 1; E66.09 - Other obesity due to excess calories; Z68.32 - Body mass index [BMI] 32.0-32.9, adult (10) Encounter for screening examination for sexually transmitted disease: Code(s): Z11.3 - Encounter for screening for infections with a predominantly sexual mode of transmission Category: Medical Plan History of Present Illness The patient is a 29-year-old female came in for physical examination and would like to have STD check Sexually Transmitted Infection (STI) Screening: - The patient seeks STI screening as she resumed a relationship with her boyfriend and engages in unprotected intercourse. - Requests both swab and blood tests, acknowledging the risk of infections such as Chlamydia and HIV, despite lacking symptoms. Psoriasis: - The patient's psoriasis has worsened recently. - In the past, she managed with a prescribed cream, but now feels it?s insufficient. - She reports using up the cream and desires a stronger treatment. Patient is established with Dermatology and has appointment coming up in few days Thyroid Nodule: - An ultrasound for thyroid was conducted yesterday. - The patient is under endocrinological care but has not recently completed all lab work. Weight Management Issues: - Engaged with an packing machine inspector for weight management. - Referred to a branch officer to demonstrate effort in lifestyle changes before medication for weight loss is considered. Obesity with BMI of 32.8 Health Maintenance - Recent thyroid ultrasound: a small nodule, deemed non-suspicious. - Tetanus vaccination updated as of 2021. [place] of Care - Community Health Education Coordinator for thyroid and weight management. - Strategic Planning Specialist for psoriasis treatment. - Guitar Teacher for diet and lifestyle management. - Annual visit scheduled with BARREL ASSEMBLER. Patient Instructions - Complete the STI tests (both blood and swab) as discussed. - Continue fasting for lab work associated with the blood test. - Consider discussing stronger psoriasis treatment with the harness puller during the upcoming appointment. Follow-up 1 year physical exam Orders: Orders Bacterial Vaginosis Panel Today N76.0 - Acute vaginitis Comprehensive [place]. Panel Fast Today E28.2 - Polycystic ovarian syndrome, E55.9 - Vitamin D deficiency, unspecified, F33.2 - Major depressive disorder, recurrent severe without psychotic features, F41.1 - Generalized anxiety disorder, F42.8 - Other obsessive-compulsive disorder, K64.8 - Other hemorrhoids, N76.0 - Acute vaginitis, Z00.01 - Encounter for general adult medical examination with abnormal findings TSH reflex Free T4 Today E28.2 - Polycystic ovarian syndrome, E55.9 - Vitamin D deficiency, unspecified, F33.2 - Major depressive disorder, recurrent severe without psychotic features, F41.1 - Generalized anxiety disorder, F42.8 - Other obsessive-compulsive disorder, K64.8 - Other hemorrhoids, N76.0 - Acute vaginitis, Z00.01 - Encounter for general adult medical examination with abnormal findings HIV Ab/Ag Today Z11.3 - Encounter for screening for infections with a predominantly sexual mode of transmission Hepatitis C Antibody Today Z11.3 - Encounter for screening for infections with a predominantly sexual mode of transmission Syphilis Screen Today Z11.3 - Encounter for screening for infections with a predominantly sexual mode of transmission Complete Blood Count Auto Diff Today E28.2 - Polycystic ovarian syndrome, E55.9 - Vitamin D deficiency, unspecified, E66.09 - Other obesity due to excess calories, E66.811 - Obesity, class 1, F33.2 - Major depressive disorder, recurrent severe without psychotic features, F41.1 - Generalized anxiety disorder, F42.8 - Other obsessive-compulsive disorder, K64.8 - Other hemorrhoids, N76.0 - Acute vaginitis, Z00.01 - Encounter for general adult medical examination with abnormal findings, Z68.32 - Body mass index [BMI] 32.0- 32.9, adult Lipid Panel Today E28.2 - Polycystic ovarian syndrome, E55.9 - Vitamin D deficiency, unspecified, F33.2 - Major depressive disorder, recurrent severe without psychotic features, F41.1 - Generalized anxiety disorder, F42.8 - Other obsessive-compulsive disorder, K64.8 - Other hemorrhoids, N76.0 - Acute vaginitis, Z00.01 - Encounter for general adult medical examination with abnormal findings Herpes Simplex Virus Ab IgG Today Z11.3 - Encounter for screening for infections with a predominantly sexual mode of transmission Hepatitis B Surface Antibody Today Z11.3 - Encounter for screening for infections with a predominantly sexual mode of transmission
--- OUTSIDE RECORDS SUMMARY | 2024-11-29 08:39 | XMS_ITS | Clinical Summary ---
Author Organization [facility] Address [address] [place] [address] Care Team Providers Care Promotion Specialist Name Role Phone Unavailable Primary Care [...] 1.1 % creaIndications :Caries of enamel (incipient) [place] twice daily with toothpaste then expectorate. Do not rinse. 51 g 5 5 Active Active Problems No known active problems Encounters Date Type Department Care Team Description 11/01/2024 7:55 AM EDT Immunizations [facility] [address] [place] [id number] from Last 3 Months Immunizations Immunization Administration Dates Next Due DTAP (DAPTACEL),5 PERTUSSIS ANTIGENS 12/2000,12/13/1997,01/19/1996,11/08,1995 Flu, Preservative Free 05/08/2015 HEP B, PED/ADOL ([id number]/RECOMBIVAX-PEDS) 08/14/1996,1995,1995 HPV, QUADRIVALENT 10/31/2008,04/30/2008,01/20/20 07 Hep A, [...] Upcoming Encounters Date Type Department Care Team ([facility] st Contact Info) Description 01/16/2025 4:20 PM EDT Office Visit [facility] [address] [place] [phone] Veronica Fernandez [address] [place] [address] Health Maintenance Due Date Last Done Comments Anxiety Screening 1995 Dental FMX/Pano 1995 Dental Perio Charting 1995 HPV Screening 1995 Hepatitis C Screening 1995 Pap + HPV 1995 HIV Screening 2010 Relationship Safety Screening/Counseling 2010 Cervical Cancer Screening 2016 Pap Smear 2016 [id number] ( season) 2023 Alcohol and Drug Screen [...] Relevant to Health Maintenance Insurance BC DENTAL [facility] [place] [address]) Member Subscriber Plan / Payer ( fective 2021-Present) Name:Maisha Deluna Relation to Subscriber:Self Name:Mikie Maisha Payer ID:[id number] Type:[employer] Address: [address] [place] [id number]
== END 2024-11-29 08:54 | disposition home or self-care (01) ==
LOC: HO.HMCC 08:28
PROVIDERS: PCP Internal Medicine; Visit Provider Internal Medicine
DX: Z00.01 Encounter for general adult medical examination with abnormal findings (principal); F33.2 Major depressive disorder, recurrent severe without psychotic features; E66.811 Obesity, class 1; Z68.32 Body mass index [BMI] 32.0-32.9, adult; N76.0 Acute vaginitis; K64.8 Other hemorrhoids; E55.9 Vitamin D deficiency, unspecified; E28.2 Polycystic ovarian syndrome; F42.8 Other obsessive-compulsive disorder; F41.1 Generalized anxiety disorder; E66.09 Other obesity due to excess calories; Z11.3 Encounter for screening for infections with a predominantly sexual mode of transmission

== ENCOUNTER 2024-11-29 08:27 | Outpatient (REF) | payer OTHER, SELFPAY ==
[2024-11-29 10:27] LABS: MANUAL DIFF FLAG NO
[2024-11-29 10:45] LABS: Hematocrit 41.3 % (37.0-47.0); Hemoglobin 13.6 g/dl (12.0-16.0); Imm Gran Abs Auto 0.02 X10*3/uL (0.00-0.03); Imm Gran Pct Auto 0.3 % (0.0-0.4); Lymphocytes Absolute Auto 2.3 X10*3/uL (1.2-4.9); Mean Corpuscular HGB Conc 32.9 g/dl (31.0-35.0); Mean Corpuscular Hemoglobin 27.6 pg (27.0-33.0); Mean Corpuscular Volume 83.8 fL (80.0-98.0); NRBC Abs Auto 0.000 X10*3/uL (0.0-0.012); NRBC Pct Auto 0.0 /100WBC (0.0-0.2); Platelet Count 209 X10*3/uL (160-400); Red Blood Count 4.93 X10*6/uL (4.20-5.50); White Blood Count 6.7 X10*3/uL (4.8-10.8)
[2024-11-29 11:14] LABS: Alanine Aminotransferase 18 U/L (0-31); Albumin Level 4.6 g/dL (3.5-5.0); Alkaline Phosphatase 63 U/L (39-117); Anion Gap 13 (12-20); Aspartate Amino Transferase 22 U/L (5-31); Blood Urea Nitrogen 13 mg/dL (9-16); Calcium 8.9 mg/dL (8.4-10.2); Carbon Dioxide 22 mmol/L (22-29); Chloride 111 mmol/L (96-108); Cholesterol 173 mg/dL (<200); Estimated Glomerular Filt Rate > 60; HDL Cholesterol 41 mg/dL (>40); Potassium 3.8 mmol/L (3.3-5.1); Sodium 142 mmol/L (135-145); Total Protein 7.2 g/dL (6.5-8.0); Triglycerides 81 mg/dL (<150)
[2024-11-29 11:16] LABS: HBS Num1 197.13 mIU/mL (0-7.99); HIV Num 1 0.05 S/CO (0.00-0.99); ~HepC Num1 0.11 S/CO (0.00-0.79); ~Hepatitis B Surface Antibody REACTIVE (Nonreactive); ~Hepatitis C Antibody Nonreactive (Nonreactive)
[2024-11-29 11:17] LABS: Syphilis Screen Nonreactive (Nonreactive)
[2024-11-29 11:41] LABS: Bacterial Vaginosis PCR POSITIVE (Negative); Candida Group PCR DETECTED (Not Detect); Candida glab krusei PCR NOT DETECTED (Not Detect); Trichomonas vaginalis PCR NOT DETECTED (Not Detect)
== END 2024-11-29 08:28 | disposition home or self-care (01) ==
LOC: HO.HMGCLDS 08:27
PROVIDERS: PCP Internal Medicine; Visit Provider Internal Medicine
DX: Z00.01 Encounter for general adult medical examination with abnormal findings (principal); K64.8 Other hemorrhoids; F41.1 Generalized anxiety disorder; N76.0 Acute vaginitis; E55.9 Vitamin D deficiency, unspecified; E28.2 Polycystic ovarian syndrome; F33.2 Major depressive disorder, recurrent severe without psychotic features; F42.8 Other obsessive-compulsive disorder; E66.811 Obesity, class 1; E66.09 Other obesity due to excess calories; Z68.32 Body mass index [BMI] 32.0-32.9, adult; Z71.3 Dietary counseling and surveillance; Z20.2 Contact with and (suspected) exposure to infections with a predominantly sexual mode of transmission
CPT/HCPCS: 36415; 80053; 80061; 81515; 84443; 85025; 86695; 86696; 86706; 86780; 86803; 87389; 96127

== ENCOUNTER 2024-11-29 09:42 | Outpatient (REF) | payer OTHER, SELFPAY | END 2024-11-29 09:43 | disposition home or self-care (01) | LOC: HO.LAB 09:42 | PROVIDERS: Visit Provider Internal Medicine | DX: Z13.89 Encounter for screening for other disorder (principal) ==

== ENCOUNTER 2024-12-14 10:16 | Outpatient (REF) | payer OTHER, SELFPAY ==
[2024-12-14 16:00] LABS: Bacterial Vaginosis PCR NEGATIVE (Negative); Candida Group PCR NOT DETECTED (Not Detect); Candida glab krusei PCR NOT DETECTED (Not Detect); Trichomonas vaginalis PCR NOT DETECTED (Not Detect)
== END 2024-12-14 10:17 | disposition home or self-care (01) ==
LOC: HO.LAB 10:16
PROVIDERS: PCP Internal Medicine; Visit Provider Advanced Practice Midwife
DX: N90.89 Other specified noninflammatory disorders of vulva and perineum (principal); N89.8 Other specified noninflammatory disorders of vagina
CPT/HCPCS: 81515

== ENCOUNTER 2024-12-14 10:16 | Outpatient (AMB) | payer OTHER, SELFPAY ==
[2024-12-14 10:19] VITALS: BMI 32.8
--- NOTE | 2024-12-14 10:19 | A.OFFVIS_ITS ---
Vital Signs 12/14/24 10:19 Height 5 ft 3 in Weight 185 lb BMI 32.8 Intake Visit Reasons: vulvar burning Intake Note: pt c/o vaginal dryness, irritation Remote Sensing Research Scientist: Remote Sensing Research Scientist Present (Jossy) Allergies No Known Allergies Allergy (Verified 12/14/24 10:19) HPI Comments Details: Patient is here today with vulvar burning, mons pubis discomfort, not sure she has a UTI. feels the skin is more irritated prior to her menses. Shaves w/a razor and soap. No new soaps or other products. Is sexually active, use personal products for intimacy often, and cleanses items well. PENDING SALE TO [facility] Medical History Thyromegaly PCOS (polycystic ovarian syndrome) Anxiety Depression Dyspepsia Difficulty sleeping Psoriasis Surgical History No pertinent past surgical history Family History Father Bipolar disorder Back problem Mother Asthma Heart problem Maternal Grandfather CVD (cardiovascular disease) Myocardial infarction Paternal Aunt Breast cancer Brother No problems noted. Sister No problems noted. Maternal Aunt Uterine cancer Ovarian cancer Other Mental health disorder Substance use disorder Social History Household Members: Significant Other Both parents involved: Yes Caregiver staying overnight: No Housing: House Are you a primary care management associate to a significant other at home: No Do you presently have visiting nurse or other home services: No 75 years or older and lives alone: No Alcohol intake: never Patient Tobacco Use Status: Former Tobacco user e-Cigarette/Vaping Use: Never Used Substance Use Type: Marijuana Trauma History: denies Agree to transfusion: Yes service: No Current occupational status: employed 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 Current occupational exposures/hazards: No Cognitive needs: No Hearing needs: No Vision needs: No Female Reproductive History Menstrual Age of Menarche: 11 Review of Systems Const All systems reviewed & are unremarkable except as noted in HPI and below Physical Exam Vital Signs: BMI result Body Mass Index 32.8 Const General: cooperative, healthy appearing and no acute distress Orientation/consciousness: patient oriented x3 GI Inspection: Yes normal to inspection Palpation (GI): Soft to palpation and Other GI palpation findings present (Nontender) Rectal Exam - Female: visual inspection normal General: Yes bladder normal to palpation External Female Exam: normal appearance of the urethra Speculum Exam - Vagina: normal appearance of the vagina, normal palpation, normal vaginal discharge and swelling (lower right introitus) Speculum Exam - Cervix: normal appearance of the cervix and normal palpation Bimanual exam- vagina & uterus: normal bimanual exam, normal palpation, uterine size normal, bladder normal to palpation, normal palpation, uterine shape normal and non-tender Bimanual Exam- Adnexa, other: normal adnexae Neuro General: patient oriented x3 Assessment & Plan Assessment & Plan (1) Vulvar irritation: Code(s): N90.89 - Other specified noninflammatory disorders of vulva and perineum Plan Discussed: Vulvar care, what to avoid, self help comfort measures, use of vulvar balms, lubricants, Aquaphor or vaseline externally, long and short term uses. Pelvic rest for now, cool compresses for mechanical irritation. BV panel obtained await results for final plan of care. Follow up p.r.n. The patient expressed understanding and agreement with the plan of care. All of her questions and concerns were addressed to the best of my ability. This note is constructed using voice recognition software. While every effort has been made to ensure accuracy, vehicle sales professional errors may have been included. Orders: Orders Bacterial Vaginosis Panel Today N89.8 - Other specified noninflammatory disorders of vagina Coding Level of Care Code Est Pt Level 3 (32984) Diagnoses Vulvar irritation N90.89
--- OUTSIDE RECORDS SUMMARY | 2024-12-14 11:31 | XMS_ITS | Clinical Summary ---
Author Organization [facility] Address [address] [place] [address] Care Team Providers Care Railroad Dispatcher Name Role Phone Unavailable Primary Care Provider [...] 1.1 % creaIndications :Caries of enamel (incipient) [place] twice daily with toothpaste then expectorate. Do not rinse. 51 g 5 5 Active Active Problems No known active problems Encounters Date Type Department Care Team Description 11/01/2024 7:55 AM EDT Immunizations [facility] [address] [place] [id number] from Last 3 Months Immunizations Immunization Administration Dates Next Due DTAP (DAPTACEL),5 PERTUSSIS ANTIGENS 12/2000,12/13/1997,01/19/1996,11/08,1995 Flu, Preservative Free 05/08/2015 HEP B, PED/ADOL ([id number]/RECOMBIVAX-PEDS) 08/14/1996,1995,1995 HPV, QUADRIVALENT 10/31/2008,04/30/2008,01/20/20 07 Hep A, [...] Upcoming Encounters Date Type Department Care Team ([facility] st Contact Info) Description 01/16/2025 4:20 PM EDT Office Visit [facility] [address] [place] [phone] Veronica Fernandez [address] [place] [address] Health Maintenance Due Date Last Done Comments Anxiety Screening 1995 Dental FMX/Pano 1995 Dental Perio Charting 1995 HPV Screening 1995 Hepatitis C Screening 1995 Pap + HPV 1995 HIV Screening 2010 Relationship Safety Screening/Counseling 2010 Cervical Cancer Screening 2016 Pap Smear 2016 [id number] ( season) 2023 Alcohol and Drug Screen [...] Relevant to Health Maintenance Insurance BC DENTAL [facility] [place] [address]) Member Subscriber Plan / Payer ( fective 2021-Present) Name:Maisha Deluna Relation to Subscriber:Self Name:Mikie Maisha Payer ID:[id number] Type:[employer] Address: [address] [place] [id number]
== END 2024-12-14 10:52 | disposition home or self-care (01) ==
LOC: HO.HWS 10:16
PROVIDERS: PCP Internal Medicine; Visit Provider Advanced Practice Midwife
DX: N90.89 Other specified noninflammatory disorders of vulva and perineum (principal)
CPT/HCPCS: 99213

== ENCOUNTER 2024-12-28 08:14 | Outpatient (AMB) | payer OTHER, SELFPAY ==
--- OUTSIDE RECORDS SUMMARY | 2024-12-28 09:06 | XMS_ITS | Clinical Summary ---
Author Organization [facility] Address [address] [place] [address] Care Team Providers Care Vp Software Support Name Role Phone Unavailable Primary Care Provider [...] 1.1 % creaIndications :Caries of enamel (incipient) [place] twice daily with toothpaste then expectorate. Do not rinse. 51 g 5 5 Active Active Problems No known active problems Encounters Date Type Department Care Team Description 11/01/2024 7:55 AM EDT Immunizations [facility] [address] [place] [id number] from Last 3 Months Immunizations Immunization Administration Dates Next Due DTAP (DAPTACEL),5 PERTUSSIS ANTIGENS 12/2000,12/13/1997,01/19/1996,11/08,1995 Flu, Preservative Free 05/08/2015 HEP B, PED/ADOL ([id number]-R-LLBG/RECOMBIVAX-PEDS) 08/14/1996,1995,1995 HPV, QUADRIVALENT 10/31/2008,04/30/2008,01/20/20 07 Hep A, [...] Upcoming Encounters Date Type Department Care Team ([facility] st Contact Info) Description 01/16/2025 4:20 PM EDT Office Visit [facility] Dental [address] [place] [phone] Veronica Fernandez [address] [place] [address] Health Maintenance Due Date Last Done Comments Anxiety Screening 1995 Dental FMX/Pano 1995 Dental Perio Charting 1995 HPV Screening 1995 Hepatitis C Screening 1995 Pap + HPV 1995 HIV Screening 2010 Relationship Safety Screening/Counseling 2010 Cervical Cancer Screening 2016 Pap Smear 2016 Alcohol and Drug Screen 04/19/2024 Depression Annual Screen 04/19/2024 [id number] ( season) 2024 Imm-Influenza (#1) 2024 05/08/2015, 12/12/2010 Tobacco Screening [...] Relevant to Health Maintenance Insurance BC DENT[facility] [place] [address]) Member Subscriber Plan / Payer ( fective 2021-Present) Name:Maisha Deluna Relation to Subscriber:Self Name:Mikie Maisha Payer ID:[id number] Type:Neema Address: [address] [place] [id number]
--- NOTE | 2024-12-28 10:10 | MHC.PC.OV ---
Intake Visit Reasons: sciatic/back pain Allergies No Known Allergies Allergy (Verified 12/14/24 10:19) Medication List - Last Reconciled 12/28/24 by Kenny Shin MD drospirenone-ethinyl estradiol 3-0.02 mg (ARI (28)) 1 tab PO DAILY spironolactone 50 mg PO DAILY Tobacco use date assessed: 08/31/24 Dental Screening Dental Screen Date: 08/31/24 HPI sciatic/back pain HPI Details History of Present Illness The patient is a 29 year old female presenting with right-sided lumbar radiculopathy. Right-sided lumbar radiculopathy: - The patient reports experiencing right-sided radicular pain in the lumbar region for the past few days. - The pain has been an intermittent problem for the past few months. - Relief typically occurs over time, but the symptom recurs. - Ibuprofen has been used as a treatment, providing partial relief; however, pain persists. - She has previously tried gabapentin, which resulted in undesirable weight gain, leading to its discontinuation. - She can maintain her work responsibilities despite the pain. Recurrent hives: - The patient reports recurrent hives and has undergone evaluation by an business applications specialist. - It has been determined that the hives are stress-related. - Symptom management involves using Benadryl as needed for occurrences. Psoriasis outbreaks: - The patient experiences breakouts of psoriasis; however, no detailed history regarding the duration or treatments was provided. Social History: - The patient is able to work despite experiencing pain. Problem List - Right-sided lumbar radiculopathy - Recurrent stress-related hives - Psoriasis Patient Instructions - .take Prednison 10 mg daily for a week with food - Use Benadryl as needed for hives. - Monitor symptoms and notify if there are any changes. - X ray lumber spine is needed f/u 10 days Review of Systems - General: No fever no chills - Neurological: No headaches no dizziness - Ear nose throat: No sore throat no hearing difficulty no ear pain - Cardiovascular: No syncope, no chest pain, no palpitations - Gastrointestinal: No nausea vomiting or diarrhea [facility] Medical History Thyromegaly PCOS (polycystic ovarian syndrome) Anxiety Depression Dyspepsia Difficulty sleeping Psoriasis Surgical History No pertinent past surgical history Family History Father Bipolar disorder Back problem Mother Asthma Heart problem Maternal Grandfather CVD (cardiovascular disease) Myocardial infarction Paternal Aunt Breast cancer Brother No problems noted. Sister No problems noted. Maternal Aunt Uterine cancer Ovarian cancer Other Mental health disorder Substance use disorder Social History Household Members: Significant Other Both parents involved: Yes Caregiver staying overnight: No Housing: House Are you a primary inspector health care facilities to a significant other at home: No Do you presently have visiting nurse or other home services: No 75 years or older and lives alone: No Alcohol intake: never Patient Tobacco Use Status: Former Tobacco user e-Cigarette/Vaping Use: Never Used Substance Use Type: Marijuana Trauma History: denies Agree to transfusion: Yes service: No Current occupational status: employed 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 Morales Gutierres, Connie Goldman, Tadeo Wilson and colleagues, with an educational albert from [employer]. Physical exam (Primary Care) Tobacco/Smoking Status: Tobacco use Status Tobacco use date assessed 08/31/24 12/28/24 10:11 Patient Tobacco Use Status Former Tobacco user 12/28/24 10:11 Tobacco use type 12/14/24 08:42 e-Cigarette/Vaping Use Never Used 12/28/24 10:11 Thrive Assessment: Date of Thrive Assessment Date Thrive assessed 11/29/24 12/28/24 10:11 Telehealth Telehealth Telehealth Platform: [facility] Location of provider rendering services: practice address Location of patient: address on file Patient Identification confirmed using: Name, : Yes Telehealth method: video Patient verbally consented to treatment: Yes Patient verbally consented to billing insurance company: Yes Patient informed of any privacy concerns related to visit: Yes Minutes spent on Phone/Video with Pt.: 14 Coding Level of Care Code Tele Est Pt Level 3 (64340) Diagnoses Lumbar pain with radiation down right leg M54.50; M79.604 Psoriasis L40.9 Hives L50.9 Assessment & Plan Assessment & Plan (1) Lumbar pain with radiation down right leg: Code(s): M54.50 - Low back pain, unspecified; M79.604 - Pain in right leg Category: Medical (2) Psoriasis: Code(s): L40.9 - Psoriasis, unspecified Category: Medical (3) Hives: Code(s): L50.9 - Urticaria, unspecified Category: Medical Plan History of Present Illness The patient is a 29 year old female presenting with right-sided lumbar radiculopathy. Right-sided lumbar radiculopathy: - The patient reports experiencing right-sided radicular pain in the lumbar region for the past few days. - The pain has been an intermittent problem for the past few months. - Relief typically occurs over time, but the symptom recurs. - Ibuprofen has been used as a treatment, providing partial relief; however, pain persists. - She has previously tried gabapentin, which resulted in undesirable weight gain, leading to its discontinuation. - She can maintain her work responsibilities despite the pain. Recurrent hives: - The patient reports recurrent hives and has undergone evaluation by an business applications specialist. - It has been determined that the hives are stress-related. - Symptom management involves using Benadryl as needed for occurrences. Psoriasis outbreaks: - The patient experiences breakouts of psoriasis; however, no detailed history regarding the duration or treatments was provided. Social History: - The patient is able to work despite experiencing pain. Problem List - Right-sided lumbar radiculopathy - Recurrent stress-related hives - Psoriasis Patient Instructions - .take Prednison 10 mg daily for a week with food - Use Benadryl as needed for hives. - Monitor symptoms and notify if there are any changes. - X ray lumber spine is needed f/u 10 days Orders: Orders XR lumbar spine 2-3V Today M54.50 - Low back pain, unspecified, M79.604 - Pain in right leg Medications: New prednisone orally daily; take one tab for a week, then half a tab daily until finish 10 tabs 0RF 7 days
== END 2024-12-28 11:09 | disposition home or self-care (01) ==
LOC: HO.HMCC 08:14
PROVIDERS: PCP Internal Medicine; Visit Provider Internal Medicine
DX: M54.50 Low back pain, unspecified (principal); M79.604 Pain in right leg; L40.9 Psoriasis, unspecified; L50.9 Urticaria, unspecified

== ENCOUNTER 2025-01-05 13:42 | Outpatient (REF) | payer OTHER, SELFPAY ==
--- NOTE | ~2025-01-05 | XR_ITS ---
EXAMINATION: XR LUMBOSACRAL SPINE CLINICAL INFORMATION: M54.50 - Low back pain, unspecified COMPARISON: None available. TECHNIQUE: Three views of the lumbosacral spine. FINDINGS: The vertebral bodies and posterior elements are normal. The disc spaces are preserved and the vertebral alignment is normal. The paraspinal soft tissues are normal. XR/XR lumbar spine 2-3V IMPRESSION: Normal lumbar spine examination. Electronically signed by: Chano Sierra MD 01/05/2025 03:07 PM EDT
[2025-01-05 16:30] LABS: Hemoglobin A1C 128.9593 umol/L
[2025-01-05 16:35] LABS: Alanine Aminotransferase 20 U/L (0-31); Anion Gap 11 (12-20); Aspartate Amino Transferase 30 U/L (5-31); Blood Urea Nitrogen 13 mg/dL (9-16); Calcium 9.2 mg/dL (8.4-10.2); Carbon Dioxide 24 mmol/L (22-29); Chloride 107 mmol/L (96-108); Cholesterol 182 mg/dL (<200); Estimated Glomerular Filt Rate > 60; HDL Cholesterol 42 mg/dL (>40); Potassium 3.9 mmol/L (3.3-5.1); Sodium 138 mmol/L (135-145); Triglycerides 133 mg/dL (<150)
[2025-01-05 21:12] LABS: Bacterial Vaginosis PCR POSITIVE (Negative); Candida Group PCR DETECTED (Not Detect); Candida glab krusei PCR NOT DETECTED (Not Detect); Trichomonas vaginalis PCR NOT DETECTED (Not Detect)
[2025-01-11 10:29] LABS: Testosterone, Free 8.0 pg/mL (0.1-6.4)
== END 2025-01-05 13:43 | disposition home or self-care (01) ==
LOC: HO.HMGCX 13:42
PROVIDERS: Physician Assistant; PCP Internal Medicine; Referring Provider Student in an Organized Health Care Education/Training Program; Visit Provider Internal Medicine
DX: N89.8 Other specified noninflammatory disorders of vagina (principal); Z13.1 Encounter for screening for diabetes mellitus; E28.2 Polycystic ovarian syndrome; E66.811 Obesity, class 1; M79.604 Pain in right leg; Z68.32 Body mass index [BMI] 32.0-32.9, adult; L68.0 Hirsutism; M54.50 Low back pain, unspecified; Z20.2 Contact with and (suspected) exposure to infections with a predominantly sexual mode of transmission
CPT/HCPCS: 36415; 72100; 80048; 80061; 81515; 82157; 82533; 82627; 83036; 83498; 84270; 84402; 84403; 84450; 84460

== ENCOUNTER 2025-01-05 13:42 | Outpatient (AMB) | payer OTHER, SELFPAY ==
--- OUTSIDE RECORDS SUMMARY | 2025-01-05 13:53 | XMS_ITS | Clinical Summary ---
Author Organization [facility] Address [address] [place] [address] Care Team Providers Care Transition Manager Name Role Phone Unavailable Primary Care [...] 1.1 % creaIndications :Caries of enamel (incipient) [place] twice daily with toothpaste then expectorate. Do not rinse. 51 g 5 5 Active Active Problems No known active problems Encounters Date Type Department Care Team Description 11/01/2024 7:55 AM EDT Immunizations [facility] [address] [place] [phone] from Last 3 Months Immunizations Immunization Administration Dates Next Due DTAP (DAPTACEL),5 PERTUSSIS ANTIGENS 12/2000,12/13/1997,01/19/1996,11/08,1995 Flu, Preservative Free 05/08/2015 HEP B, PED/ADOL (PEEPQBK-V-SIKA/RECOMBIVAX-PEDS) 08/14/1996,1995,1995 HPV, QUADRIVALENT 10/31/2008,04/30/2008,01/20/20 07 Hep A, [...] 4:20 PM EDT Office Visit [facility] Dental [address] [place] [phone] Veronica Fernandez [address] [place] [address] Health Maintenance Due Date Last Done Comments Anxiety Screening 1995 Dental FMX/Pano 1995 Dental Perio Charting 1995 HPV Screening 1995 Hepatitis C Screening 1995 Pap + HPV 1995 HIV Screening 2010 Relationship Safety Screening/Counseling 2010 Cervical Cancer Screening 2016 Pap Smear 2016 Alcohol and Drug Screen 04/19/2024 Depression Annual Screen 04/19/2024 [id number] ( season) 2024 Imm-Influenza (#1) 2024 05/08/2015, 12/12/2010 Tobacco Screening 07/15/2025 07/15/2024 Dental BW 07/17/2025 07/15/2024 Dental Examination 07/17/2025 07/15/2024 Dental Prophy 07/17/2025 07/15/2024, 12/31/2023 Hypertension Screening (#1) 07/15/2027 Imm-DTaP/Tdap/Td (10 - Td or Tdap) 03/18/2032 03/18/2022, 07/19/2018, 07/18/2018, Additional history exists Imm-HPV Completed 10/31/2008, 04/19, 01/19/2007 Imm-Hepatitis B Completed 11/28/2020, 07/19, 1995, Additional [...] Most Recently Relevant to Health Maintenance Insurance BCBS DENTAL [facility] [place] [address]) Member Subscriber Plan / Payer (Ef fective 2021-Present) Name:Leandro Delunaina Relation to Subscriber:Self Name:MikieLeandroMaisha Payer ID:[id number] Type:[employer] Address: [address] [place] [id number]
[2025-01-05 13:54] VITALS: BP 110/70; PULSE 81; RESP 16; TEMP 37; O2SAT 98; BMI 32.8
--- NOTE | 2025-01-05 13:54 | MHC.OFFWIV ---
Intake Vital Signs 01/05/25 13:54 Height 5 ft 3 in Weight 185 lb BMI 32.8 BP 110/70 Blood Pressure Location Lt brachial Position Sitting Respiration 16 Pulse 81 Pulse Source Pulse Oximeter Temp 98.6 F Temp Source Oral Pulse Oximetry (%) 98 Oxygen Delivery Method Room Air Intake Visit Reasons: EP Yeast infection? 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 - Reports itchiness and white, paper-like discharge from the vaginal area, starting after condom use 2 days ago. - Denies recent antibiotic use; currently taking probiotics. - No fever, pain, or strong odor; slight smell change she thinks is possibly due to ovulation. - History of bacterial vaginosis, but current symptoms differ. - Using metronidazole gel topically with no improvement - No recent antibiotic use but is taking probiotics which is new Physical Exam General: Cooperative, healthy appearing, comfortable, no acute distress and well developed Orientation: Patient oriented x3 Limitations: Sciatica pain affecting the whole side Head: Normal to inspection Ears: Hearing grossly normal bilaterally Nose: Normal External nose present Face and sinus: Normal facial exam Eyes: Appearance normal, both eyes and all related structures Neck: Normal visual inspection and Yes full ROM Respiratory: Normal respiratory effort and able to speak in complete sentences. Skin: No rashes or lesions noted Neuro: Patient oriented x3 Extremities: Normal to inspection Review of Systems - Genitourinary: Reports vaginal itchiness and discharge. Denies fever, pain, or strong odor. All systems reviewed and are unremarkable except as noted in HPI and above [facility] Medical History Thyromegaly PCOS (polycystic ovarian syndrome) Anxiety Depression Dyspepsia Difficulty sleeping Psoriasis Surgical History No pertinent past surgical history Family History Father Bipolar disorder Back problem Mother Asthma Heart problem Maternal Grandfather CVD (cardiovascular disease) Myocardial infarction Paternal Aunt Breast cancer Brother No problems noted. Sister No problems noted. Maternal Aunt Uterine cancer Ovarian cancer Other Mental health disorder Substance use disorder Social History Household Members: Significant Other Both parents involved: Yes Caregiver staying overnight: No Housing: House Are you a primary ambulatory care coordinator to a significant other at home: No Do you presently have visiting nurse or other home services: No 75 years or older and lives alone: No Alcohol intake: never Patient Tobacco Use Status: Former Tobacco user e-Cigarette/Vaping Use: Never Used Substance Use Type: Marijuana Trauma History: denies Agree to transfusion: Yes service: No Current occupational status: employed 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 exposures/hazards: No Cognitive needs: No Hearing needs: No Vision needs: No Female Reproductive History Menstrual Age of Menarche: 11 Physical Exam Vital Signs: Last Vital Signs Temp 98.6 F 01/05/25 13:54 Pulse 81 01/05/25 13:54 Resp 16 01/05/25 13:54 BP 110/70 01/05/25 13:54 Pulse Ox 98 01/05/25 13:54 Oxygen Delivery Method Room Air 01/05/25 13:54 BMI result Body Mass Index 32.8 Assessment & Plan Assessment & Plan (1) Vaginal discharge: Code(s): N89.8 - Other specified noninflammatory disorders of vagina Plan: Plan Patient was informed and verbally consented to the use of an ambient scribe for clinic note documentation during this visit. Vaginal Candidiasis - A Bacterial Vaginosis Panel swab was performed to confirm the diagnosis. - Empirical treatment with fluconazole was provided, with instructions to take a second dose if symptoms persist after three days. Orders: Orders Bacterial Vaginosis Panel Today N89.8 - Other specified noninflammatory disorders of vagina Medications: New fluconazole may repeat second dose 72 hrs after first dose if symptoms persist 150 mg PO Q3D 2 tabs 0RF Coding Level of Care Code Est Pt Level 3 (19489) Diagnoses Vaginal discharge N89.8
== END 2025-01-05 14:53 | disposition home or self-care (01) ==
PROVIDERS: PCP Internal Medicine; Visit Provider Physician Assistant
DX: N89.8 Other specified noninflammatory disorders of vagina (principal)

== ENCOUNTER → 2025-01-05 14:44 | Outpatient (BNV) | payer OTHER, SELFPAY | PROVIDERS: PCP Internal Medicine; Referring Provider Student in an Organized Health Care Education/Training Program; Visit Provider Radiology Diagnostic Radiology | DX: M54.50 Low back pain, unspecified (principal) | CPT/HCPCS: 72100 ==

== ENCOUNTER 2025-01-18 13:16 | Outpatient (REF) | payer OTHER, SELFPAY ==
--- OUTSIDE RECORDS SUMMARY | 2025-01-18 14:44 | XMS_ITS | Clinical Summary ---
Author Organization [facility] Address [address] [place] [address] Care Team Providers Care Clipper Counters Name Role Phone Unavailable Primary Care Provider [...] 1.1 % creaIndications :Caries of enamel (incipient) [place] twice daily with toothpaste then expectorate. Do not rinse. 51 g 5 5 Active Active Problems No known active problems Encounters Date Type Department Care Team Description 11/01/2024 7:55 AM EDT Immunizations [facility] [address] [place] [id number] from Last 3 Months Immunizations Immunization Administration Dates Next Due DTAP (DAPTACEL),5 PERTUSSIS ANTIGENS 12/2000,12/13/1997,01/19/1996,11/08,1995 Flu, Preservative Free 05/08/2015 HEP B, PED/ADOL (HSLTWRC-S-TTSA/RECOMBIVAX-PEDS) 08/14/1996,1995,1995 HPV, QUADRIVALENT 10/31/2008,04/30/2008,01/20/20 07 Hep A, [...] 11/19/2023 9:04 AM EDT Plan of Treatment Health Maintenance Due Date Last Done Comments Anxiety Screening 1995 Dental FMX/Pano 1995 Dental Perio Charting 1995 HPV Screening 1995 Hepatitis C Screening 1995 Pap + HPV 1995 HIV Screening 2010 Relationship Safety Screening/Counseling 2010 Cervical Cancer Screening 2016 Pap Smear 2016 Alcohol and Drug Screen 04/19/2024 Depression Annual Screen 04/19/2024 [id number] ( season) 2024 Imm-Influenza (#1) 2024 05/08/2015, [...] Relevant to Health Maintenance Insurance BCBS [facility] [place] [facility]) Member Subscriber Plan / Payer ( fective 2021-Present) Name:Maisha Deluna Relation to Subscriber:Self Name:Maisha Deluna Payer ID:[id number] Type:[employer] Address: [address] [place] [id number]
[2025-01-19 08:17] LABS: Bacterial Vaginosis PCR POSITIVE (Negative); Candida Group PCR NOT DETECTED (Not Detect); Candida glab krusei PCR NOT DETECTED (Not Detect); Trichomonas vaginalis PCR NOT DETECTED (Not Detect)
[2025-01-19 11:31] LABS: CT PCR NOT DETECTED (Not Detect.); NG PCR NOT DETECTED (Not Detect.)
== END 2025-01-18 13:17 | disposition home or self-care (01) ==
LOC: HO.LAB 13:16
PROVIDERS: Advanced Practice Midwife; PCP Internal Medicine; Visit Provider Student in an Organized Health Care Education/Training Program
DX: Z01.419 Encounter for gynecological examination (general) (routine) without abnormal findings (principal); N89.8 Other specified noninflammatory disorders of vagina; Z20.2 Contact with and (suspected) exposure to infections with a predominantly sexual mode of transmission
CPT/HCPCS: 81515; 87491; 87591

== ENCOUNTER 2025-01-18 13:23 | Outpatient (AMB) | payer OTHER, SELFPAY ==
[2025-01-18 13:27] VITALS: BP 120/76; BMI 32.8
--- NOTE | 2025-01-18 13:27 | A.OFFVIS_ITS ---
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 Regular monthly menses. Plans to start OCPs are known ordered by Endocrine for hirsutism symptoms. Currently is sexually active. She denies vaginal itching or irritation. STI screening offered; she accepts. She tries to eat healthy and stays active with exercise. FH breast cancer. Last pap smear 2020, negative. [facility] Medical History Thyromegaly PCOS (polycystic ovarian syndrome) Anxiety Depression Dyspepsia Difficulty sleeping Psoriasis Surgical History No pertinent past surgical history Family History Father Bipolar disorder Back problem Mother Asthma Heart problem Maternal Grandfather CVD (cardiovascular disease) Myocardial infarction Paternal Aunt Breast cancer Brother No problems noted. Sister No problems noted. 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/hazards: No Cognitive needs: No Hearing needs: No Vision needs: No Female Reproductive History Menstrual Age of Menarche: 11 Date of last menstrual period: 12/17/24 control method: pills Total pregnancies: 1 Full term: 1 Number of Living Children: 1 Date of last pap smear: 01/18/24 (neg) Review of Systems Const All systems reviewed & are unremarkable except as noted in HPI and below Reports as per HPI Eyes Reports no additional complaints ENT Reports no additional complaints Card Reports no additional complaints Resp Reports no additional complaints GI Reports as per HPI and Reports no additional complaints Reports as per HPI Musc Reports no additional complaints Skin/Breast Reports as per HPI Neuro Reports no additional complaints Psych Reports no additional complaints Endo Reports no additional complaints Karsten/Lymph Reports no additional complaints Aller/Immun Reports no additional complaints Physical Exam Vital Signs: Last Vital Signs BP 120/76 01/18/25 13:27 BMI result Body Mass Index 32.8 Const General: cooperative, healthy appearing, no acute distress, well developed and alert Orientation/consciousness: patient oriented x3 HEENT Head: Yes normal to inspection Eyes General: appearance normal, both eyes and all related structures Neck Neck: Yes normal visual inspection Thyroid: Thyroid normal Chest Chest palpation & inspection: normal inspection of the chest and other (no puckering, dimpling, peau de orange, retraction, discharge, masses) Breast/axilla inspection: normal inspection of the breasts Breast/axilla palpation: normal palpation of the breasts Resp Effort & Inspection: normal respiratory effort GI Inspection: Yes normal to inspection Palpation (GI): Soft to palpation Rectal Exam - Female: deferred General: Yes bladder normal to palpation External Female Exam: normal external appearance and normal appearance of the urethra Speculum Exam - Vagina: normal appearance of the vagina, normal palpation and normal vaginal discharge Speculum Exam - Cervix: normal appearance of the cervix and normal palpation Bimanual exam- vagina & uterus: normal bimanual exam, normal palpation, uterine size normal, bladder normal to palpation, normal palpation and non-tender Bimanual Exam- Adnexa, other: no masses Skin General skin exam: no rashes or lesions noted Rashes: no rashes Neuro General: patient oriented x3 Cognition (Neuro): normal cognition Extrem General: Yes normal to inspection Psych Attitude: cooperative Thought process: Normal thought process present Assessment & Plan Assessment & Plan (1) Encounter for well woman exam with routine gynecological exam: Code(s): Z01.419 - Encounter for gynecological examination (general) (routine) without abnormal findings Category: Medical Plan: Discussed: Current recommendations for pap smears per ASCCP guidelines. Breast awareness and periodic breast exams. Maintain a healthy lifestyle including a well balanced diet and routine exercise. Use condoms for STI and prevention. Patient verbalizes understanding and agrees to the plan of care. She was given opportunity to ask questions and all questions were answered to the best of my ability. RTO in one year for annual retention representative examination. This note is constructed using voice recognition software. While every effort has been made to ensure accuracy, wood finisher apprentice errors may have been included. (2) Vaginal odor: Code(s): N89.8 - Other specified noninflammatory disorders of vagina Plan BV and GC obtained, await results for final care. The patient expressed understanding and agreement with the plan of care. All of her questions and concerns were addressed to the best of my ability. Orders: Orders Bacterial Vaginosis Panel Today Z20.2 - Contact with and (suspected) exposure to infections with a predominantly sexual mode of transmission CT NG by PCR Vag/Cerv Today Z20.2 - Contact with and (suspected) exposure to infections with a predominantly sexual mode of transmission Coding Level of Care Code Est Pt Prev Care 18-39y(00964) Diagnoses Encounter for well woman exam with routine gynecological exam Z01.419 Vaginal odor N89.8
== END 2025-01-18 14:00 | disposition home or self-care (01) ==
LOC: HO.HWS 13:24
PROVIDERS: PCP Internal Medicine; Visit Provider Advanced Practice Midwife
DX: Z01.419 Encounter for gynecological examination (general) (routine) without abnormal findings (principal); N89.8 Other specified noninflammatory disorders of vagina
CPT/HCPCS: 99395; 99459

== ENCOUNTER 2025-01-18 13:52 | Outpatient (REF) | payer OTHER, SELFPAY | END 2025-01-18 13:53 | disposition home or self-care (01) | LOC: HO.LNP 13:52 | PROVIDERS: Visit Provider Advanced Practice Midwife | DX: Z13.89 Encounter for screening for other disorder (principal) ==

== ENCOUNTER 2025-01-20 10:26 | Outpatient (REF) | payer OTHER, SELFPAY ==
--- OUTSIDE RECORDS SUMMARY | 2025-01-20 10:30 | XMS_ITS | Clinical Summary ---
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 Do not rinse. 51 g 5 5 Active Active Problems No known active problems Encounters Date Type Department Care Team Description 11/01/2024 7:55 AM EDT Immunizations [facility] [address] [place] [id number] from Last 3 Months Immunizations Immunization Administration Dates Next Due DTAP (DAPTACEL),5 PERTUSSIS ANTIGENS 12/2000,12/13/1997,01/19/1996,11/08,1995 Flu, Preservative Free 05/08/2015 HEP B, PED/ADOL ([id number]-PEDS) 08/14/1996,1995,1995 HPV, QUADRIVALENT 10/31/2008,04/30/2008,01/20/20 07 Hep A, [...] Drug Screen 04/19/2024 Depression Annual Screen 04/19/2024 [id number] ( season) 2024 Imm-Influenza (#1) 2024 05/08/2015, [...] to Health Maintenance Insurance BCBS [facility]) Member Subscriber Plan / Payer ( fective 2021-Present) Name:Maisha Deluna Relation to Subscriber:Self Name:Maisha Deluna Payer ID:[id number] Type:[employer] Address: [address] [place] [id number]
== END 2025-01-20 10:27 | disposition home or self-care (01) ==
LOC: HO.LAB 10:26
PROVIDERS: PCP Internal Medicine; Visit Provider Student in an Organized Health Care Education/Training Program
DX: E28.2 Polycystic ovarian syndrome (principal); E66.811 Obesity, class 1; Z68.32 Body mass index [BMI] 32.0-32.9, adult
CPT/HCPCS: 36415; 82024

== ENCOUNTER 2025-02-13 13:40 | Outpatient (AMB) | payer OTHER, SELFPAY ==
[2025-02-13 15:23] VITALS: BP 106/60; PULSE 86; O2SAT 96; BMI 32.8
--- NOTE | 2025-02-13 15:23 | A.OFFVIS_ITS ---
Vital Signs 02/13/25 15:23 Height 5 ft 3 in Weight 185 lb 3.013 oz BMI 32.8 BP 106/60 Blood Pressure Location Rt brachial Position Sitting Pulse 86 Pulse Source Pulse Oximeter Pulse Oximetry (%) 96 Oxygen Delivery Method Room Air Intake Visit Reasons: Hairutism- pt Intake Note: Patient presents today for a follow-up on Hirsutism: Patient of DR Jess Moran MD. Head Of Drama Required: No Accompanied by: Self / Same As Patient Allergies No Known Allergies Allergy (Verified 01/18/25 13:28) HPI Comments Details: 29-year-old female coming in today for follow-up evaluation of hirsutism in the setting of PCOS and obesity. She was poorly seen by Dr. Moran on 10/12/2024. This is the 1st time that I see the patient. Previous HPI PCOS diagnosed in her teens. Was having irregular periods at that time. had transvaginal US whihc showed polycystic ovaries and blood work showed elevated androgens per patient. presents with complaints of hirsutism, acne, crown hair loss. She has no history of HTN, prediabetes. Does have hyperlipidemia Hirsutism :mostly facial hair bothersome Menarche:11 years, started getting irregular in later teens LMP:September 25 2024, had a period in August as well, skipped July, periods were regular for a year after giving , Jun 03 2022. history: , has one child aged 2, normal vaginal delivery, no complications, baby boy, was trying for 9 years , but no assisted reprodutive methods done, natural conception. Medications: Spironolactone 50 mg daily, was only on OCPs 13 to15 years old for control Diet: BF : green tea with fruit, or oatmeal with banana nuts or waffles store bought Lunch: snack apple, salads home made with caeser dressing Snack on cookies and peanuts Dinner: this unity balance drink Exercise:none Weight Trend:193 lbs , highest weight for her, used to be 150 lbs before Medical therapies: OCP, spironolactone, metformin, incretin therapy Cosmetic therapies: Laser hair removal, shaving, threading, plucking Sexually active , aware of teratogenic effects of spironolactone but not using condoms or any OCPs. 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 No alcohol use Smokes marijuana no tobacco smoking Interval history 02/13/2025 Laboratory Tests 01/05/25 01/05/25 01/20/25 14:34 14:37 11:00 Sodium 138 Potassium 3.9 Creatinine 0.77 Hemoglobin A1c % 5.6 AST 30 ALT 20 Triglycerides 133 Cholesterol 182 LDL Cholesterol, Calc 114 H HDL Cholesterol 42 Total Testosterone 71 H Fr Testosterone Dialys 8.0 H Sex Hormone Bind Glob 32 Androstenedione 284 H DHEA Sulfate 130 ACTH 10 17-Hydroxyprogesterone 206 PFSH Medical History Thyromegaly PCOS (polycystic ovarian syndrome) Anxiety Depression Dyspepsia Difficulty sleeping Psoriasis Surgical History No pertinent past surgical history Family History Father Bipolar disorder Back problem Mother Asthma Heart problem Maternal Grandfather CVD (cardiovascular disease) Myocardial infarction Paternal Aunt Breast cancer Brother No problems noted. Sister No problems noted. Maternal Aunt Uterine cancer Ovarian cancer Other Mental health disorder Substance use disorder Social History Household Members: Significant Other Both parents involved: Yes Caregiver staying overnight: No Housing: House Are you a primary school childcare attendant to a significant other at home: No Do you presently have visiting nurse or other home services: No 75 years or older and lives alone: No Alcohol intake: never Patient Tobacco Use Status: Former Tobacco user e-Cigarette/Vaping Use: Never Used Substance Use Type: Marijuana Trauma History: denies Agree to transfusion: Yes service: No Current occupational status: employed 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 occupational 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/hazards: No Cognitive needs: No Hearing needs: No Vision needs: No Female Reproductive History Menstrual Age of Menarche: 11 Physical Exam Vital Signs: Last Vital Signs Pulse 86 02/13/25 15:23 BP 106/60 02/13/25 15:23 Pulse Ox 96 02/13/25 15:23 Oxygen Delivery Method Room Air 02/13/25 15:23 BMI result Body Mass Index 32.8 Assessment & Plan Assessment & Plan (1) PCOS (polycystic ovarian syndrome): Code(s): E28.2 - Polycystic ovarian syndrome Category: Medical Plan: 29-year-old female with diagnosis of PCOS since her teens based on diagnosis of hyper androgenic syndrome, irregular menstruation, cystic ovaries on ultrasound and elevated testosterone levels per patient who is now coming in for follow up for PCOS and hirsutism. She is aware of the metabolic, reproductive and androgenic effects of PCOS, and she feels she is currently more concerned about the hirsutism. She is currently not interested in a 2nd . Patient continues to experience significant facial hirsutism. She was previously treated by Dermatology with spironolactone 50 mg, but she stopped it after she felt it was not very effective. We discussed with her that sometimes higher doses as needed to obtain better anti androgenic effects. She endorses regular menses, though cycles are somewhat variable (35?45 days), with rare skipped cycles. Given the patient is going to be restarted on spironolactone which is teratogenic, we recommend the patient to consider a reliable contraception method like IUD. Plan Spironolactone: Increase dose to 100 mg daily. Engineering Teacher on potential side effects (hypotension, hyperkalemia, polyuria, fatigue). Repeat basic metabolic panel (BMP) in 5 days to assess potassium and renal function. Review labs and symptoms after 1 week; titrate dose as tolerated, up to 200 mg if needed and if tolerated. Continue home laser hair removal as tolerated; reinforce that medical therapy may reduce new hair growth but will not remove existing hair. (2) Obesity due to excess calories: Code(s): E66.09 - Other obesity due to excess calories Category: Medical Qualifiers: Body mass index: BMI 32.0-32.9 Obesity classification: adult class 1 (BMI 30 - 34.9) Serious obesity comorbidity presence: without serious comorbidity Qualified Code(s): E66.811 - Obesity, class 1; E66.09 - Other obesity due to excess calories; Z68.32 - Body mass index [BMI] 32.0-32.9, adult Plan: 29-year-old female with diagnosis of PCOS since her teens based on diagnosis of hyper androgenic syndrome, irregular menstruation, cystic ovaries on ultrasound and elevated testosterone levels per patient who is now coming in for establishing care for PCOS and hirsutism. Weight plateaued after 12-lb loss; current weight 180 lbs, goal 150 lbs. Diet: Reports reduced portions, no sugary drinks, but no formal dietary plan until recent machine carton marker visit. Prior trial of topiramate for weight loss was ineffective and increased appetite. No prior use of GLP-1 agonists due to insurance barriers. No history of bariatric surgery. Discussed with the patient the importance of caloric deficit and regular exercise in weight loss. She has only recently seen the machine carton marker, hence we advised that she could tried dietary interventions for at least 3 month and then we will discuss we will loss medications in the next visit. Plan Reinforce dietary counseling with machine carton marker (Tricia). Encourage structured meal planning, possible time-restricted eating, and regular physical activity as feasible. Metformin: Discuss initiation at next visit, given borderline HbA1c and PCOS. May provide modest weight loss and metabolic benefit. Anti-obesity Medications: If no further weight loss after 3 months of lifestyle intervention, consider trial of naltrexone/bupropion or phentermine/topiramate (if not contraindicated and with reliable contraception in place). GLP-1 Agonists: Revisit if insurance coverage changes. Bariatric Referral: Not indicated at this time. Plan 35 minutes spent reviewing previous records, labs, imaging, education and documenting in the chart Orders: Orders Basic Metabolic Panel 5 Days E28.2 - Polycystic ovarian syndrome Medications: New spironolactone (Aldactone) 100 mg PO QAM 30 tabs 3RF E28.2 - Polycystic ovarian syndrome, E66.09 - Other obesity due to excess calories, E66.811 - Obesity, class 1, Z68.32 - Body mass index [BMI] 32.0-32.9, adult Coding Level of Care Code Est Pt Level 4 (82077) Diagnoses PCOS (polycystic ovarian syndrome) E28.2 Class 1 obesity due to excess calories without serious comorbidity with body mass index (BMI) of 32.0 to 32.9 in adult E66.811; E66.09; Z68.32 Body mass index: BMI 32.0-32.9 Obesity classification: adult class 1 (BMI 30 - 34.9) Serious obesity comorbidity presence: without serious comorbidity
== END 2025-02-13 16:01 | disposition home or self-care (01) ==
LOC: HO.ENCR 13:41
PROVIDERS: PCP Internal Medicine; Visit Provider Student in an Organized Health Care Education/Training Program
DX: E28.2 Polycystic ovarian syndrome (principal); E66.811 Obesity, class 1; E66.09 Other obesity due to excess calories; Z68.32 Body mass index [BMI] 32.0-32.9, adult
CPT/HCPCS: 99214

== ENCOUNTER → 2025-02-13 13:40 | Outpatient (AMB) | payer OTHER, SELFPAY ==
--- NOTE | 2025-02-13 13:56 | A.OFFVIS_ITS ---
VS Expanded 02/13/25 13:57 02/13/25 14:00 Height 5 ft 3 in 5 ft 3 in Weight 182 lb 15.739 oz 183 lb BMI 32.4 32.4 Intake Visit Reasons: Hirsutism Allergies No Known Allergies Allergy (Verified 01/18/25 13:28) Nutrition Presentation Details: Pt presents s for MNT for PCOS, obesity Patient reports her weight was around 150 lbs before her now 2 yrs old child. Patient reports trying different methods to lose weight, fasting, low carb and been challenging to lose the weight Currently reports having lack meal planning BS Monitoring Most Recent Diabetes Results: Cholesterol, (<200) 182 mg/dL 01/05/25 HDL Cholesterol, (>40) 42 mg/dL 01/05/25 Triglycerides, (<150) 133 mg/dL 01/05/25 Creatinine, (0.5-1.4) 0.77 mg/dL 01/05/25 BUN, (9-16) 13 mg/dL 01/05/25 Sodium, (135-145) 138 mmol/L 01/05/25 Potassium, (3.3-5.1) 3.9 mmol/L 01/05/25 Chloride, (96-108) 107 mmol/L 01/05/25 Carbon Dioxide, (22-29) 24 mmol/L 01/05/25 Calcium, (8.4-10.2) 9.2 mg/dL 01/05/25 AST, (5-31) 30 U/L 01/05/25 ALT, (0-31) 20 U/L 01/05/25 JJN-Vjivvap-Er.Jeor Equation Height: 5 ft 3 in Weight: 183 lb Resting Metabolic Rate: 1525.69 Calculated Activity Level: Sedentary Calories Needed to Maintain Weight: 1830.83 Diagnosis Nutrition problem #1: overweight/obesity As related to (etiology) #1: lack of nutrit education As evidenced by (sign/symptom) #1: high BMI and knowledge deficit of diet [facility] Medical History Thyromegaly PCOS (polycystic ovarian syndrome) Anxiety Depression Dyspepsia Difficulty sleeping Psoriasis Surgical History No pertinent past surgical history Family History Father Bipolar disorder Back problem Mother Asthma Heart problem Maternal Grandfather CVD (cardiovascular disease) Myocardial infarction Paternal Aunt Breast cancer Brother No problems noted. Sister No problems noted. Maternal Aunt Uterine cancer Ovarian cancer Other Mental health disorder Substance use disorder Social History Household Members: Significant Other Both parents involved: Yes Caregiver staying overnight: No Housing: House Are you a primary childcare attendant to a significant other at home: No Do you presently have visiting nurse or other home services: No 75 years or older and lives alone: No Alcohol intake: never Patient Tobacco Use Status: Former Tobacco user e-Cigarette/Vaping Use: Never Used Substance Use Type: Marijuana Trauma History: denies Agree to transfusion: Yes service: No Current occupational status: employed 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 Current occupational exposures/hazards: No Cognitive needs: No Hearing needs: No Vision needs: No Female Reproductive History Menstrual Age of Menarche: 11 Assessment & Plan Assessment & Plan (1) Obesity due to excess calories: Comment: Patient also has PCOS Code(s): E66.09 - Other obesity due to excess calories Category: Medical Qualifiers: Obesity classification: adult class 1 (BMI 30 - 34.9) Serious obesity comorbidity presence: without serious comorbidity Body mass index: BMI 32.0- 32.9 Qualified Code(s): E66.811 - Obesity, class 1; E66.09 - Other obesity due to excess calories; Z68.32 - Body mass index [BMI] 32.0-32.9, adult Plan: current wt: 83 kg ( 02/10 ) est kcal needs as per MSJ: 1800 est protein needs as per 1 g/kg BW: 80-90 est fluid needs as per 30 ml/kg BW: 2500 Recommended fiber > 12 g /day and gradually increase up to 25-28 g /day or as tolerated Nutrition topics discussed : Reviewed (R), Pt verbalized understanding (V) , not applicable (N/A) R, : Healthy Plate Method Concept: R, : Carbohydrates: food sources of carbohydrates, relationship of carbohydrates to blood glucose, fatty liver GI health. Recommended total amount of car bohydrates per meals and snack. Differences between simple carbohydrates and complex carbohydrates R, V, N/A: Lean protein foods including vegan , vegetarian sources of protein. Benefits of protein (including but not limited to healing, nutritional value , benefits in weight loss, glucose control R, V, N/A: Fats : Source of fats, benefits of fats. Difference between saturated and unsaturated fats. Saturated fats and its contribution to inflammation R, V, N/A: Fiber: food sources and role of fiber in the diet (including but not limited to its role as a prebiotic, benefits in constipation, role in IBS , role in glucose control and cholesterol level) R, : Hydration: role of hydration and prevention of dehydration or over hydration. Foods and water content. R, V, N/A: Vitamins and Minerals in foods and supplements R, V, N/A: Interpreting food labels, including serving size, macronutrients, vitamins, minerals, allergens, ingredient list , % daily value Patient Instructions: Work on having 3 meals a day, as a routine Choose beverages with low sugar Follow healthy plate method at dinner reducing starches to 1 cup cooked (choose high-fiber starches, whole grains, beans lentils) Seen meal plan ideas Coding Level of Care Code Nutr Indiv Intake (63766) Diagnoses Class 1 obesity due to excess calories without serious comorbidity with body mass index (BMI) of 32.0 to 32.9 in adult E66.811; E66.09; Z68.32 Obesity classification: adult class 1 (BMI 30 - 34.9) Serious obesity comorbidity presence: without serious comorbidity Body mass index: BMI 32.0-32.9 Time Spent (min) 30
[2025-02-13 13:57] VITALS: BMI 32.4
--- OUTSIDE RECORDS SUMMARY | 2025-02-13 17:44 | XMS_ITS | Clinical Summary ---
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 Do not rinse. 51 g 5 5 Active Active Problems No known active problems Immunizations Immunization Administration Dates Next Due DTAP (DAPTACEL),5 PERTUSSIS ANTIGENS 12/2000,12/13/1997,01/19/1996,11/08,1995 Flu, Preservative Free 05/08/2015 HEP B, PED/ADOL ([id number]/RECOMBIVAX-PEDS) 08/14/1996,1995,1995 HPV, QUADRIVALENT 10/31/2008,04/30/2008,01/20/20 07 Hep A, [...] 1995 Dental Perio Charting 1995 HPV Screening (self-collect) 1995 HPV Screening 1995 Hepatitis C Screening 1995 Pap + HPV 1995 HIV Screening 2010 Relationship Safety Screening/Counseling 2010 Cervical Cancer Screening 2016 Pap Smear 2016 Alcohol and Drug Screen 04/19/2024 Depression Annual Screen 04/19/2024 [id number] ( season) 2024 Imm-Influenza (#1) 2024 05/08/2015, [...] Conization Discontinued Cervical Cryotherapy Discontinued Colposcopy Discontinued Excision/Leep Discontinued HPV Genotyping Discontinued Vaginal [...] to Health Maintenance Insurance BCBS [place] [address] [address] Member Subscriber Plan / Payer ( fective 2021-Present) Name:Maisha Deluna Relation to Subscriber:Self Name:Maisha Deluna Payer ID:[id number] Type:[employer] Address: [address] [place] [id number]
[2025-02-20 20:16] VITALS: BMI 32.4
== END ==
LOC: HO.ENCR 13:41
PROVIDERS: PCP Internal Medicine; Visit Provider Dietitian, Registered
DX: E66.811 Obesity, class 1 (principal); E66.09 Other obesity due to excess calories; Z68.32 Body mass index [BMI] 32.0-32.9, adult

== ENCOUNTER → 2025-02-13 13:40 | Outpatient (BNVA) | payer OTHER, SELFPAY | PROVIDERS: PCP Internal Medicine; Visit Provider Dietitian, Registered | DX: E66.811 Obesity, class 1 (principal); E66.09 Other obesity due to excess calories; Z68.32 Body mass index [BMI] 32.0-32.9, adult | CPT/HCPCS: 97802 ==